=== PATIENT | female | born 1980 | race Caucasian/White ===

== ENCOUNTER 2018-08-04 09:37 | Emergency (ER) | payer MEDICAID ==
--- NOTE | 2018-08-04 11:03 | EDM.PDOC ---
ED HPI GENERAL MEDICAL PROBLEM - General Chief Complaint: Syncope Stated Complaint: DIZZY,FALLING,LOW BLOOD PRESSURE ISSUES Time Seen by Provider: 08/04/18 10:17 Source of Information: Reports: Patient, RN Notes Reviewed - History of Present Illness INITIAL COMMENTS - FREE TEXT/NARRATIVE: 38-year-old female comes in after having 2 episodes of syncope this morning. She states that she's been having difficulty with dizziness, lightheadedness, hypotension off and on for about the past 2 months. She had 2 episodes this morning when standing of feeling weak, lightheaded, dizzy and "passing out". At this time she does feel better. She denies chest abdominal discomfort or any difficulty breathing. She is not on any new medications. She does take a muscle relaxant and uses ketamine cream for back discomfort. She states she's been on those meds for about a year. She also does take Prozac. She states the dizziness and lightheadedness is worse when having her menstrual cycle. States she did start with a small amount of spotting this morning and then it "stopped ". No recent vomiting, diarrhea fever chills or voiding symptomatology. Head Pain Score (Numeric/FACES): 9 - Related Data Allergies Allergy/AdvReac Type Severity Reaction Status Date / Time amoxicillin [Amoxicillin] Allergy Hives Verified 03/19/18 20:24 CDT Penicillins Allergy Hives Verified 03/19/18 20:24 CDT Home Meds: Home Meds Acetaminophen/HYDROcodone [[place] 325-5 MG] 1 - 2 tab PO Q6H PRN #15 tablet 06/21 [Rx] ClonazePAM [KlonoPIN] 0.5 mg PO DAILY 06/21/16 [History] Diazepam [Valium] 5 mg PO BID PRN #10 tablet 06/21/16 [Rx] hydrOXYzine HCl [Atarax] 50 mg PO BEDTIME 06/21/16 [History] tiZANidine [Zanaflex] 4 mg PO TID 06/21/16 [History] Topiramate [Topamax] 50 mg PO DAILY 12/28/17 [History] clonazePAM [Klonopin] 1 mg PO DAILY 12/28/17 [History] Escitalopram [Lexapro] 1 mg PO DAILY 01/01/18 [History] Past Medical History HEENT History: Reports: None Cardiovascular History: Reports: None, Other (See Below) Other Cardiovascular History: heart murmur as a baby Respiratory History: Reports: Asthma Gastrointestinal History: Reports: None Genitourinary History: Reports: None LOCUM TENENS PSYCHIATRIST History: Reports: Other (See Below) Other LOC[employer] TEN[employer] PSYCHIATRIST History: ovarian cysts, laprascopy Musculoskeletal History: Reports: None Neurological History: Reports: Migraines Psychiatric History: Reports: Anxiety, Depression Endocrine/Metabolic History: Reports: None Hematologic History: Reports: None Immunologic History: Reports: None Oncologic (Cancer) History: Reports: None Dermatologic History: Reports: None - Infectious Disease History Infectious Disease History: Reports: None - Past Surgical History HEENT Surgical History: Reports: Adenoidectomy, Myringotomy w Tube(s) Cardiovascular Surgical History: Reports: None GI Surgical History: Reports: None Female Surgical History: Reports: None Endocrine Surgical History: Reports: None Neurological Surgical History: Reports: None Musculoskeletal Surgical History: Reports: Other (See Below), Shoulder Surgery Other Musculoskeletal Surgeries/Procedures:: herniated discs Oncologic Surgical History: Reports: None Dermatological Surgical History: Reports: None Social & Family History - Family History Family Medical History: Noncontributory - Tobacco Use Smoking Status *Q: Current Every Day Smoker Years of Tobacco use: 18 Packs/Tins Daily: 0.5 - Caffeine Use Caffeine Use: Reports: Soda - Recreational Drug Use Recreational Drug Use: Yes Drug Use in Last 12 Months: No ED ROS GENERAL - Review of Systems Review Of Systems: See Below Constitutional: Denies: Fever, Chills HEENT: Denies: Rhinitis, Throat Pain Respiratory: Denies: Shortness of Breath Cardiovascular: Reports: Lightheadedness (Intermittent, especially when standing ). Denies: Chest Pain, Palpitations GI/Abdominal: Reports: Abdominal Pain (Lower pelvic discomfort in the past, no pain at this time). Denies: Diarrhea, Nausea, Vomiting Musculoskeletal: Reports: Back Pain (Chronic) Skin: Denies: Rash Neurological: Reports: Dizziness (Intermittent), Headache (Intermittent). Denies: Trouble Speaking - Physical Exam Exam: See Below General Appearance: Alert, No Apparent Distress (at rest) Eye Exam: Bilateral Eye: PERRL Ears: Normal External Exam Throat/Mouth: Normal Inspection, Normal Oropharynx Head Exam: Atraumatic. No: Scalp Swelling, Scalp Tenderness, Facial Swelling Neck: Supple Respiratory/Chest: No Respiratory Distress, Lungs Clear, Normal Breath Sounds Cardiovascular: Bradycardia (44) GI/Abdominal: Soft, Non-Tender. No: Guarding Neuro Exam (Abbreviated): Alert, Oriented, No Motor/Sensory Deficits Back Exam: No: Paraspinal Tenderness, Vertebral Tenderness Extremities: Normal Inspection. No: Pedal Edema, Leg Pain Skin Exam: Warm, Dry, Normal Color EKG INTERPRETATION EKG Date: 08/04/18 Rhythm: Other (sinus jhony, rate 44) P-Wave: Present QRS: Normal ST-T: Normal Course - Vital Signs Last Recorded V/S: Last Vital Signs Temp 97.2 F 08/04/18 09:46 Pulse 44 L 08/04/18 09:46 Resp 16 08/04/18 09:46 BP 155/71 H 08/04/18 09:46 Pulse Ox 100 08/04/18 09:46 Orthostatic Blood Pressure [ 128/77 Standing] Orthostatic Blood Pressure [ 174/89 Sitting] - Orders/Labs/Meds Labs: Laboratory Tests 08/04/18 08/04/18 08/04/18 Range/Units 10:55 10:55 10:55 WBC 8.71 (3.98-10.04) K/mm3 RBC 4.39 (3.98-5.22) M/mm3 Hgb 13.7 (11.2-15.7) gm/L Hct 41.1 (34.1-44.9) % MCV 93.6 (79.4-94.8) fl MCH 31.2 (25.6-32.2) pg MCHC 33.3 (32.2-35.5) g/dl RDW Std Deviation 44.0 (36.4-46.3) fL Plt Count 329 (182-369) K/mm3 MPV 9.9 (9.4-12.3) fl Neut % (Auto) 62.7 (34.0-71.1) % Lymph % (Auto) 23.5 (19.3-51.7) % [place] % (Auto) 11.9 (4.7-12.5) % Eos % (Auto) 1.5 (0.7-5.8) Baso % (Auto) 0.3 (0.1-1.2) % Neut # (Auto) 5.45 (1.56-6.13) K/mm3 Lymph # (Auto) 2.05 (1.18-3.74) K/mm3 [place] # (Auto) 1.04 H (0.24-0.36) K/mm3 Eos # (Auto) 0.13 (0.04-0.36) K/mm3 Baso # (Auto) 0.03 (0.01-0.08) K/mm3 Sodium 138 (136-145) mEq/L Potassium 4.4 (3.5-5.1) mEq/L Chloride 103 (98-107) mEq/L Carbon Dioxide 25 (21-32) mEq/L Anion Gap 14.4 (5-15) BUN 16 (7-18) mg/dL Creatinine 0.9 (0.55-1.02) mg/dL Est Cr Clr Drug Dosing 82.42 mL/min Estimated GFR (MDRD) > 60 (>60) mL/min BUN/Creatinine Ratio 17.8 (14-18) Glucose 133 H (74-106) mg/dL Calcium 9.3 (8.5-10.1) mg/dL Total Bilirubin 0.2 (0.2-1.0) mg/dL AST 24 (15-37) U/L ALT 38 (14-59) U/L Alkaline Phosphatase 69 (46-116) U/L Total Protein 8.6 H (6.4-8.2) g/dl Albumin 3.8 (3.4-5.0) g/dl Globulin 4.8 gm/dL Albumin/Globulin Ratio 0.8 L (1-2) HCG, Qual Negative (NEGATIVE) Urine Color (Yellow) Urine Appearance (Clear) Urine pH (5.0-8.0) Ur Specific [place] (1.005-1.030) Urine Protein (Negative) Urine Glucose (UA) (Negative) Urine Ketones (Negative) Urine Occult Blood (Negative) Urine Nitrite (Negative) Urine Bilirubin (Negative) Urine Urobilinogen (0.2-1.0) Ur Leukocyte Esterase (Negative) 08/04/18 Range/Units 12:09 WBC (3.98-10.04) K/mm3 RBC (3.98-5.22) M/mm3 Hgb (11.2-15.7) gm/L Hct (34.1-44.9) % MCV (79.4-94.8) fl MCH (25.6-32.2) pg MCHC (32.2-35.5) g/dl RDW Std Deviation (36.4-46.3) fL Plt Count (182-369) K/mm3 MPV (9.4-12.3) fl Neut % (Auto) (34.0-71.1) % Lymph % (Auto) (19.3-51.7) % [place] % (Auto) (4.7-12.5) % Eos % (Auto) (0.7-5.8) Baso % (Auto) (0.1-1.2) % Neut # (Auto) (1.56-6.13) K/mm3 Lymph # (Auto) (1.18-3.74) K/mm3 [place] # (Auto) (0.24-0.36) K/mm3 Eos # (Auto) (0.04-0.36) K/mm3 Baso # (Auto) (0.01-0.08) K/mm3 Sodium (136-145) mEq/L Potassium (3.5-5.1) mEq/L Chloride (98-107) mEq/L Carbon Dioxide (21-32) mEq/L Anion Gap (5-15) BUN (7-18) mg/dL Creatinine (0.55-1.02) mg/dL Est Cr Clr Drug Dosing mL/min Estimated GFR (MDRD) (>60) mL/min BUN/Creatinine Ratio (14-18) Glucose (74-106) mg/dL Calcium (8.5-10.1) mg/dL Total Bilirubin (0.2-1.0) mg/dL AST (15-37) U/L ALT (14-59) U/L Alkaline Phosphatase (46-116) U/L Total Protein (6.4-8.2) g/dl Albumin (3.4-5.0) g/dl Globulin gm/dL Albumin/Globulin Ratio (1-2) HCG, Qual (NEGATIVE) Urine Color Yellow (Yellow) Urine Appearance Clear (Clear) Urine pH 6.5 (5.0-8.0) Ur Specific [place] 1.010 (1.005-1.030) Urine Protein Negative (Negative) Urine Glucose (UA) Negative (Negative) Urine Ketones Negative (Negative) Urine Occult Blood Trace-intact H (Negative) Urine Nitrite Negative (Negative) Urine Bilirubin Negative (Negative) Urine Urobilinogen 0.2 (0.2-1.0) Ur Leukocyte Esterase Negative (Negative) Meds: Medications Discontinued Medications Generic Name Dose Route Start Last Admin Trade Name Aster PRN Reason Stop Dose Admin Acetaminophen 975 mg 08/04/18 11:46 08/04/18 11:56 Tylenol PO 08/04/18 11:47 975 mg NOW ONE Administration Diphenhydramine HCl 25 mg 08/04/18 11:46 08/04/18 11:56 Benadryl PO 08/04/18 11:47 25 mg ONETIME ONE Administration Ketorolac Tromethamine 30 mg 08/04/18 11:45 08/04/18 12:06 Toradol IVPUSH 30 mg ONETIME GILLIAN Administration Metoclopramide HCl 5 mg 08/04/18 11:45 08/04/18 12:09 Reglan IVPUSH 08/04/18 11:46 5 mg ONETIME ONE Administration - Re-Assessments/Exams Free Text/Narrative Re-Assessment/Exam: 08/07/18 12:09 labs did come back relatively normal. However heart rate stayed slow, in the 40 's, increases to low 60's standing, BP maintained lying to standing with initial ortho's. However she noted that when she walked to the bathroom by the time she got back to her room she was feeling really lightheaded and dizzy. Her nurse than walked her around the ED, BP started out good but dropped to upper 70's systolic after just a minute or 2 of walking, heart rate up to around 60 but not as fast as it should have been with patient weak, dizzy, hypotensive, about to pass out. I did research the muscle relaxant she is taking pretty regularly, tizanidine and 2 of the main side effects listed are bradycardia and hypotension. I have discussed that finding with patient and her father. She urgently needs to stop taking that medication. 48 hour holter moniter also applied. Departure - Departure Time of Disposition: 13:53 Disposition: Home, Self-Care 01 Condition: Fair Clinical Impression: Syncope due to orthostatic hypotension, Bradycardia - Discharge Information Instructions: Hypotension, Syncope Referrals: PCP,Not In Area [Primary Care Provider] - Forms: ED Department Discharge Additional Instructions: 48 hour Holter monitor, the tizanidine muscle relaxant is affecting your bodies automatic control of heart rate and blood pressure and with the walking your blood pressure did drop much more than expected. Stop or taper down very rapidly to be off of that medication. Follow-up with your regular medical provider later this week if possible. Return to ED as needed.
[2018-08-04] MEDS ORDERED: Metoclopramide 10 MG/2 ML SDV IVPUSH ONE (11:45)
[2018-08-04] MEDS ORDERED: Ketorolac 30 MG/ML SDV IVPUSH SCH (11:45)
[2018-08-04] MEDS ORDERED: diphenhydrAMINE 25 MG Cap PO ONE (11:46)
[2018-08-04] MEDS ORDERED: Acetaminophen 325 MG Tab PO ONE (11:46)
== END 2018-08-04 14:23 | disposition home or self-care (01) ==
LOC: JD.ED 09:37 → EEVIPCON 09:37 → JD.ED 14:23
DX: I95.1 Orthostatic hypotension (principal); R00.1 Bradycardia, unspecified; J45.909 Unspecified asthma, uncomplicated; F41.9 Anxiety disorder, unspecified; F32.9 Major depressive disorder, single episode, unspecified; F17.210 Nicotine dependence, cigarettes, uncomplicated; Z88.1 Allergy status to other antibiotic agents; Z88.0 Allergy status to penicillin; Z79.899 Other long term (current) drug therapy
CPT/HCPCS: 36415; 80053; 81003; 84703; 85025; 93005; 93225; 93226; 96374; 96375; 99284; A9270; J1885; J2765

== ENCOUNTER 2018-08-10 16:21 | Emergency (ER) | payer MEDICAID ==
[2018-08-10] MEDS ORDERED: Acetaminophen/HYDROcodone 325-5 MG Tab PO ONE (17:11)
--- NOTE | 2018-08-10 17:13 | EDM.PDOC ---
ED HPI GENERAL MEDICAL PROBLEM - General Chief Complaint: Lower Extremity Injury/Pain Stated Complaint: L FOOT PAIN/NUMBNESS Time Seen by Provider: 08/10/18 17:00 Source of Information: Reports: Patient History Limitations: Reports: No Limitations - History of Present Illness INITIAL COMMENTS - FREE TEXT/NARRATIVE: Patient is a 38-year-old female who presents ED complaining of left ankle discomfort. States the discomfort came on abruptly in the middle of the night. Pain is described as a burning sensation worse with palpation and any movement of the ankle/foot. Pain is more on the dorsal aspect of the ankle where comes in contact with the foot. She also has some discomfort posteriorly, laterally, medially. 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 Patient's had in total had 7 knee surgeries and had surgery to remove the affected nerve. She has been utilizing Tylenol for pain with no relief. She denies any other pain medications at this time. She is on no chronic pain therapy. There is no increased swelling, redness, increased warmth, sensory changes, or bruising noted. She denies any recent fall or trauma that may have caused pain. Patient has a history of herniated disc x 2 and see's a pain specialists in [place]. She denies any pain radiating down the posterior aspect of her leg. She denies any weakness with standing. Incontinence to urine or stool. No foot drop noted. 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: Acetaminophen Left Foot Pain Score (Numeric/FACES): 8 - Related Data Allergies Allergy/AdvReac Type Severity Reaction Status Date / Time amoxicillin [Amoxicillin] Allergy Hives Verified 08/10/18 16:29 Penicillins Allergy Hives Verified 08/10/18 16:29 Home Meds: Home Meds FLUoxetine HCl [Prozac] 20 mg PO DAILY 08/10/18 [History] Past Medical History HEENT History: Reports: None Cardiovascular History: Reports: None, Other (See Below) Other Cardiovascular History: heart murmur as a baby Respiratory History: Reports: Asthma Gastrointestinal History: Reports: None Genitourinary History: Reports: None MANAGER LAW History: Reports: Other (See Below) Other MANAGER LAW History: ovarian cysts, laprascopy Musculoskeletal History: Reports: None Neurological History: Reports: Migraines Psychiatric History: Reports: Anxiety, Depression Endocrine/Metabolic History: Reports: None Hematologic History: Reports: None Immunologic History: Reports: None Oncologic (Cancer) History: Reports: None Dermatologic History: Reports: None - Infectious Disease History Infectious Disease History: Reports: None - Past Surgical History HEENT Surgical History: Reports: Adenoidectomy, Myringotomy w Tube(s) Cardiovascular Surgical History: Reports: None GI Surgical History: Reports: None Female Surgical History: Reports: None Endocrine Surgical History: Reports: None Neurological Surgical History: Reports: None Musculoskeletal Surgical History: Reports: Other (See Below), Shoulder Surgery Other Musculoskeletal Surgeries/Procedures:: herniated discs Oncologic Surgical History: Reports: None Dermatological Surgical History: Reports: None Social & Family History - Family History Family Medical History: Noncontributory - Tobacco Use Smoking Status *Q: Current Every Day Smoker Years of Tobacco use: 20 Packs/Tins Daily: 0.5 Used Tobacco, but Quit: No Second Hand Smoke Exposure: No - Caffeine Use Caffeine Use: Reports: Soda - Recreational Drug Use Recreational Drug Use: No Review of Systems - Review of Systems Review Of Systems: ROS reveals no pertinent complaints other than HPI. ED EXAM, GENERAL - Physical Exam Exam: See Below Exam Limited By: No Limitations General Appearance: Alert, WD/WN, Mild Distress Eye Exam: Bilateral Eye: PERRL (Pupils are dilated. ) Ears: Hearing Grossly Normal Nose: Normal Inspection Throat/Mouth: Normal Voice, No Airway Compromise Neck: Normal Inspection, Supple Respiratory/Chest: No Respiratory Distress, No Accessory Muscle Use Cardiovascular: Normal Peripheral Pulses, Regular Rate, Rhythm, No Murmur Peripheral Pulses: 2+: Radial (L), Posterior Tibial (L), Dorsalis Pedis (L) Extremities: Normal Inspection, Other (On examination of the left ankle/foot there is no swelling, bruising, bony abnormalities noted. With palpation the foot is cool to touch with pulses in place. Patient states she's not been wearing any socks today increasing pain. Pain is described as a burning sensation worse with palpation any type of movement. Pain with palpation of the dorsal of the ankle, lateral, medial, and along the Achilles as well. Again pain is described as a burning sensation.) Neurological: Alert, Oriented, CN II-XII Intact, Normal Cognition, No Motor/ Sensory Deficits, Other (No weakness noted with dorsiflexion/plantarflexion of the left/right leg in comparison. ) Psychiatric: Normal Affect, Anxious Skin Exam: Warm, Dry, Intact, Normal Color, No Rash Course - Vital Signs Last Recorded V/S: Last Vital Signs Temp 99.2 F 08/10/18 16:32 Pulse 112 H 08/10/18 16:32 Resp 20 08/10/18 16:32 BP 143/100 H 08/10/18 16:32 Pulse Ox 98 08/10/18 16:32 - Orders/Labs/Meds Orders: Active Orders 24 hr Category Date Time Status Ankle Min 3V Lt [CR] Stat Exams 08/10/18 17:00 Taken Labs: Laboratory Tests 08/10/18 08/10/18 08/10/18 Range/Units 17:30 17:30 17:42 WBC 9.75 (3.98-10.04) K/mm3 RBC 4.49 (3.98-5.22) M/mm3 Hgb 14.2 (11.2-15.7) gm/L Hct 41.7 (34.1-44.9) % MCV 92.9 (79.4-94.8) fl MCH 31.6 (25.6-32.2) pg MCHC 34.1 (32.2-35.5) g/dl RDW Std Deviation 44.0 (36.4-46.3) fL Plt Count 383 H (182-369) K/mm3 MPV 9.6 (9.4-12.3) fl Neutrophils % (Manual) 55 (40-60) % Band Neutrophils % 1 (0-10) % Lymphocytes % (Manual) 36 (20-40) % Atypical Lymphs % 0 % Monocytes % (Manual) 7 (2-10) % Eosinophils % (Manual) 1 (0.7-5.8) % Basophils % (Manual) 0 L (0.1-1.2) Platelet Estimate Adequate RBC Morph Comment Normal Sodium 137 (136-145) mEq/L Potassium 4.0 (3.5-5.1) mEq/L Chloride 101 (98-107) mEq/L Carbon Dioxide 21 (21-32) mEq/L Anion Gap 19.0 H (5-15) BUN 10 (7-18) mg/dL Creatinine 0.9 (0.55-1.02) mg/dL Est Cr Clr Drug Dosing 82.42 mL/min Estimated GFR (MDRD) > 60 (>60) mL/min BUN/Creatinine Ratio 11.1 L (14-18) Glucose 100 (74-106) mg/dL Uric Acid 4.4 (2.6-6.0) mg/dL Calcium 9.5 (8.5-10.1) mg/dL Total Bilirubin 0.4 (0.2-1.0) mg/dL AST 21 (15-37) U/L ALT 27 (14-59) U/L Alkaline Phosphatase 69 (46-116) U/L C-Reactive Protein 0.6 (<1.0) mg/dL Total Protein 8.9 H (6.4-8.2) g/dl Albumin 4.5 (3.4-5.0) g/dl Globulin 4.4 gm/dL Albumin/Globulin Ratio 1.0 (1-2) Urine Opiates Screen Negative (BVMUGL=026) Ur Buprenorphine Scrn Negative (CUTOFF=10) Ur Oxycodone Screen Negative (CSO2KO=086) Urine Methadone Screen Negative (IZDMNS=754) Ur Propoxyphene Screen Negative (OIKGTD=781) Ur Barbiturates Screen Negative (EQRSJS=796) Ur Tricyclics Screen Negative (BKAJYU=735) Ur Phencyclidine Scrn Negative (CUTOFF=25) Ur Amphetamine Screen Negative (ZVQKFE=663) U Methamphetamines Scrn Presumptive positive H (DFGPGK=849) U Benzodiazepines Scrn Negative (PWQFIH=512) U Cocaine Metab Screen Negative (XXTXMT=817) U Marijuana (THC) Screen Negative (CUTOFF=50) Meds: Medications Discontinued Medications Generic Name Dose Route Start Last Admin Trade Name Freq PRN Reason Stop Dose Admin Hydrocodone Bitart/Acetaminophen 2 tab 08/10/18 17:11 08/10/18 17:43 [place] 325-5 Mg PO 08/10/18 17:12 2 tab ONETIME ONE Administration - Re-Assessments/Exams Free Text/Narrative Re-Assessment/Exam: Differential diagnosis: Neuropathic pain, gout, or traumatic injury. Will obtain basic labs including: CBC, chem 14, CRP, and uric acid. X-ray of the left ankle be obtained. I have also ordered a urine drug screen. Reviewed the [facility] pharmacy controlled substances list. Patient received clonazepam 07/2018, ketamine powder 07/24/18, and gabapentin powder 07/24/2018. Patient did not provide this information when questioning which medications she is currently on. Patient clarified she utilizes the ketamine and gabapentin medications lotion for for her back pain. X-ray of the left ankle did not reveal any acute bony abnormalities. Reviewed with Dr. Lopez. Suspect this is neuropathic in etiology. I have asked for nursing staff to provide crutches since the patient has discomfort with ambulation. Labs reviewed: CBC essentially normal. Chemistry panel was essentially normal as well. Uric acid 4.4. CRP is normal. Urine drug tox came back positive for methamphetamines. Patient denies using methamphetamines. She has a drug patch in place. Upon getting patient ready for discharge. Father has asked to speak with me in relation to her medical care. Unfortunately I am unable to at this point since patient has not given me permission. Return precautions were discussed with the patient and father. Patient will follow up with PCP this coming week for further evaluation. Patient had no questions or concerns. Patient refuses crutches since she has a set at home. Departure - Departure Time of Disposition: 19:10 Disposition: DC/[place] W/I Hosp To Swing 61 Condition: Good Clinical Impression: Positive urine drug screen Ankle pain, left Qualifiers: Chronicity: acute Qualified Code(s): M25.572 - Pain in left ankle and joints of left foot - Discharge Information Instructions: Ankle Pain Referrals: PCP,Not In Area [Primary Care Provider] - Forms: ED Department Discharge Additional Instructions: Suspect cause of pain to the left ankle is neuropathic in origin. Apply capsaicin cream to the affected area 4 times a day. Utilize crutches when ambulating to reduce any discomfort. See your primary care provider this coming week for further evaluation. May use Tylenol and ibuprofen in alternating fashion as well. Urine was positive for methamphetamines unclear how this occurred. Seek help if using meth at this time. Please return to ED if you develop any new or worsening symptoms. - My Orders Last 24 Hours: My Active Orders 08/10/18 17:00 Ankle Min 3V Lt [CR] Stat - Assessment/Plan Last 24 Hours: My Active Orders 08/10/18 17:00 Ankle Min 3V Lt [CR] Stat
--- NOTE | 2018-08-11 08:24 | CR ---
Left ankle: Four views of the left ankle were obtained. Comparison: No previous study. Ankle mortise is symmetric. No fracture, dislocation or other bony abnormality is seen. Impression: 1. No abnormality is seen on left ankle exam. Diagnostic code #1
== END 2018-08-10 19:33 | disposition swing bed (61) ==
LOC: JD.ED 16:21
DX: M25.572 Pain in left ankle and joints of left foot (principal); F17.210 Nicotine dependence, cigarettes, uncomplicated; Z88.0 Allergy status to penicillin; Z88.1 Allergy status to other antibiotic agents
CPT/HCPCS: 36415; 73610; 80053; 80306; 84550; 85007; 85027; 86140; 99284; A9270

== ENCOUNTER 2018-09-11 10:47 | Emergency (ER) | payer MEDICAID ==
--- NOTE | 2018-09-11 11:21 | EDM.PDOC ---
ED HPI GENERAL MEDICAL PROBLEM - General Chief Complaint: General Stated Complaint: NECK PAIN Time Seen by Provider: 09/11/18 11:20 Source of Information: Reports: Patient - History of Present Illness INITIAL COMMENTS - FREE TEXT/NARRATIVE: Patient is here for evaluation of pain and abnormal sensation radiating through her body. She states it started last night. She reports this pain to her ankles and hips, she also has a sensation of electrical impulses radiating from her neck down to her body. She states that she is shaking and feels very unnerved. Denies any chest pain or shortness of breath. Denies any GI symptoms. No recent coughs or colds or illnesses. Patient has a history of drug use, reports that she last used approximately 6 months ago. She denies any illicit drug use recently. She states she had caffeine on Sunday in the form of a Coca-[employer]a. Patient does not have a primary provider, does see psychiatry/Dr. badillo. Medications includes Prozac, tizanidine, clonazepam, ketamine cream and a medication that is being used for a yeast infection in her mouth. Generalized Pain Score (Numeric/FACES): 9 - Related Data Allergies Allergy/AdvReac Type Severity Reaction Status Date / Time amoxicillin [Amoxicillin] Allergy Hives Verified 08/10/18 16:29 Penicillins Allergy Hives Verified 08/10/18 16:29 Home Meds: Home Meds FLUoxetine HCl [Prozac] 20 mg PO DAILY 08/10/18 [History] Clindamycin HCl [Cleocin] 300 mg PO Q8H 7 Days #42 cap 09/11/18 [Rx] Past Medical History HEENT History: Reports: None Cardiovascular History: Reports: None, Other (See Below) Other Cardiovascular History: heart murmur as a baby Respiratory History: Reports: Asthma Gastrointestinal History: Reports: None Genitourinary History: Reports: None STAFFING OPERATIONS MANAGER History: Reports: Other (See Below) Other STAFFING OPERATIONS MANAGER History: ovarian cysts, laprascopy Musculoskeletal History: Reports: None Neurological History: Reports: Migraines Psychiatric History: Reports: Anxiety, Depression Endocrine/Metabolic History: Reports: None Hematologic History: Reports: None Immunologic History: Reports: None Oncologic (Cancer) History: Reports: None Dermatologic History: Reports: None - Infectious Disease History Infectious Disease History: Reports: None - Past Surgical History HEENT Surgical History: Reports: Adenoidectomy, Myringotomy w Tube(s) Cardiovascular Surgical History: Reports: None GI Surgical History: Reports: None Female Surgical History: Reports: None Endocrine Surgical History: Reports: None Neurological Surgical History: Reports: None Musculoskeletal Surgical History: Reports: Other (See Below), Shoulder Surgery Other Musculoskeletal Surgeries/Procedures:: herniated discs Oncologic Surgical History: Reports: None Dermatological Surgical History: Reports: None Social & Family History - Family History Family Medical History: Noncontributory - Caffeine Use Caffeine Use: Reports: Soda ED ROS GENERAL - Review of Systems Review Of Systems: See Below Constitutional: Reports: Chills, Fatigue, Decreased Appetite. Denies: Fever HEENT: Denies: Ear Pain, Rhinitis, Sinus Problem, Vertigo, Vision Change Respiratory: Denies: Shortness of Breath, Wheezing, Pleuritic Chest Pain, Cough Cardiovascular: Denies: Chest Pain, Blood Pressure Problem, Dyspnea on Exertion , Edema, Lightheadedness, Palpitations Endocrine: Reports: Fatigue GI/Abdominal: Denies: Abdominal Pain, Constipation, Diarrhea, Nausea, Vomiting Musculoskeletal: Reports: Joint Pain (Bilateral ankles and hips), Muscle Pain, Muscle Stiffness, Other ("electrical shock feeling") Skin: Reports: No Symptoms Neurological: Reports: Numbness, Paresthesia, Tingling, Tremors. Denies: Confusion, Dizziness, Headache, Seizure, Syncope, Change in Speech, Gait Disturbance Psychiatric: Reports: Anxiety, Other (History of drug use, last meth use 6 months ago) Hematologic/Lymphatic: Reports: No Symptoms Immunologic: Reports: No Symptoms ED EXAM, GENERAL - Physical Exam Exam: See Below Exam Limited By: No Limitations General Appearance: Alert, Anxious, Mild Distress Eye Exam: Bilateral Eye: Abnormal Pupil (Dilated), EOMI Throat/Mouth: Normal Inspection, Normal Oropharynx, Other (Poor dentition, multiple dental caries. No gingival swelling or erythema.) Head: Atraumatic, Normocephalic Neck: Normal Inspection, Supple, Non-Tender, Full Range of Motion. No: Lymphadenopathy (L), Lymphadenopathy (R) Respiratory/Chest: No Respiratory Distress, Lungs Clear, Normal Breath Sounds Cardiovascular: Normal Peripheral Pulses, No Edema, No JVD, No Murmur, No Rub, Tachycardia Peripheral Pulses: 2+: Posterior Tibial (L), Posterior Tibial (R) GI/Abdominal: Normal Bowel Sounds, Soft, Non-Tender Extremities: Normal Inspection, Normal Range of Motion, Non-Tender, No Pedal Edema, Normal Capillary Refill Neurological: Alert, Oriented, No Motor/Sensory Deficits Skin Exam: Warm, Dry, Intact, Normal Color, No Rash Lymphatic: No Adenopathy EKG INTERPRETATION EKG Date: 09/11/18 Time: 11:45 Rhythm: NSR Rate (Beats/Min): 132 Course - Vital Signs Last Recorded V/S: Last Vital Signs Temp 99.1 F 09/11/18 14:37 Pulse 123 H 09/11/18 14:37 Resp 18 09/11/18 14:37 BP 137/100 H 09/11/18 14:37 Pulse Ox 98 09/11/18 14:37 - Orders/Labs/Meds Orders: Active Orders 24 hr Category Date Time Status EKG 12 Lead [EKG Documentation Completion] [RC] STAT Care 09/11/18 11:29 Active Labs: Laboratory Tests 09/11/18 09/11/18 09/11/18 Range/Units 11:13 11:13 11:13 WBC 12.11 H (3.98-10.04) K/mm3 RBC 4.83 (3.98-5.22) M/mm3 Hgb 15.0 (11.2-15.7) gm/L Hct 46.4 H (34.1-44.9) % MCV 96.1 H (79.4-94.8) fl MCH 31.1 (25.6-32.2) pg MCHC 32.3 (32.2-35.5) g/dl RDW Std Deviation 50.2 H (36.4-46.3) fL Plt Count 431 H (182-369) K/mm3 MPV 9.8 (9.4-12.3) fl Neutrophils % (Manual) 78 H (40-60) % Band Neutrophils % 0 (0-10) % Lymphocytes % (Manual) 18 L (20-40) % Atypical Lymphs % 0 % Monocytes % (Manual) 3 (2-10) % Eosinophils % (Manual) 0 L (0.7-5.8) % Basophils % (Manual) 1 (0.1-1.2) Platelet Estimate Increased Anisocytosis 1+ slight RBC Morph Comment Abnormal Sodium 134 L (136-145) mEq/L Potassium 4.4 (3.5-5.1) mEq/L Chloride 97 L (98-107) mEq/L Carbon Dioxide 22 (21-32) mEq/L Anion Gap 19.4 H (5-15) BUN 11 (7-18) mg/dL Creatinine 1.3 H (0.55-1.02) mg/dL Est Cr Clr Drug Dosing 57.06 mL/min Estimated GFR (MDRD) 46 (>60) mL/min BUN/Creatinine Ratio 8.5 L (14-18) Glucose 144 H (74-106) mg/dL Calcium 9.6 (8.5-10.1) mg/dL Magnesium 2.2 (1.8-2.4) mg/dl Total Bilirubin 0.2 (0.2-1.0) mg/dL AST 56 H (15-37) U/L ALT 143 H (14-59) U/L Alkaline Phosphatase 92 (46-116) U/L Lactate Dehydrogenase (81-234) U/L Troponin I < 0.017 (0.00-0.056) ng/mL C-Reactive Protein 0.2 (<1.0) mg/dL Total Protein 9.4 H (6.4-8.2) g/dl Albumin 4.5 (3.4-5.0) g/dl Globulin 4.9 gm/dL Albumin/Globulin Ratio 0.9 L (1-2) TSH 3rd Generation 1.433 (0.358-3.74) uIU/mL Urine Color (Yellow) Urine Appearance (Clear) Urine pH (5.0-8.0) Ur Specific [place] (1.005-1.030) Urine Protein (Negative) Urine Glucose (UA) (Negative) Urine Ketones (Negative) Urine Occult Blood (Negative) Urine Nitrite (Negative) Urine Bilirubin (Negative) Urine Urobilinogen (0.2-1.0) Ur Leukocyte Esterase (Negative) Urine RBC (0-5) /hpf Urine WBC (0-5) /hpf Ur Epithelial Cells (0-5) /hpf Urine Bacteria (FEW) /hpf Urine Mucus (FEW) /hpf Urine HCG, Qual (NEGATIVE) Urine Opiates Screen (NZWFAM=027) Ur Buprenorphine Scrn (CUTOFF=10) Ur Oxycodone Screen (FGY1NG=414) Urine Methadone Screen (VJVQUS=721) Ur Propoxyphene Screen (HJDNEC=061) Ur Barbiturates Screen (UGUVKT=253) Ur Tricyclics Screen (DTMMHN=173) Ur Phencyclidine Scrn (CUTOFF=25) Ur Amphetamine Screen (ZUAIWS=123) U Methamphetamines Scrn (TZUPUC=937) U Benzodiazepines Scrn (NETPPV=047) U Cocaine Metab Screen (XASTBS=565) U Marijuana (THC) Screen (CUTOFF=50) Ethyl Alcohol 0.00 (0.00) gm% 09/11/18 09/11/18 09/11/18 Range/Units 11:13 11:50 11:50 WBC (3.98-10.04) K/mm3 RBC (3.98-5.22) M/mm3 Hgb (11.2-15.7) gm/L Hct (34.1-44.9) % MCV (79.4-94.8) fl MCH (25.6-32.2) pg MCHC (32.2-35.5) g/dl RDW Std Deviation (36.4-46.3) fL Plt Count (182-369) K/mm3 MPV (9.4-12.3) fl Neutrophils % (Manual) (40-60) % Band Neutrophils % (0-10) % Lymphocytes % (Manual) (20-40) % Atypical Lymphs % % Monocytes % (Manual) (2-10) % Eosinophils % (Manual) (0.7-5.8) % Basophils % (Manual) (0.1-1.2) Platelet Estimate Anisocytosis RBC Morph Comment Sodium (136-145) mEq/L Potassium (3.5-5.1) mEq/L Chloride (98-107) mEq/L Carbon Dioxide (21-32) mEq/L Anion Gap (5-15) BUN (7-18) mg/dL Creatinine (0.55-1.02) mg/dL Est Cr Clr Drug Dosing mL/min Estimated GFR (MDRD) (>60) mL/min BUN/Creatinine Ratio (14-18) Glucose (74-106) mg/dL Calcium (8.5-10.1) mg/dL Magnesium (1.8-2.4) mg/dl Total Bilirubin (0.2-1.0) mg/dL AST (15-37) U/L ALT (14-59) U/L Alkaline Phosphatase (46-116) U/L Lactate Dehydrogenase 229 (81-234) U/L Troponin I (0.00-0.056) ng/mL C-Reactive Protein (<1.0) mg/dL Total Protein (6.4-8.2) g/dl Albumin (3.4-5.0) g/dl Globulin gm/dL Albumin/Globulin Ratio (1-2) TSH 3rd Generation (0.358-3.74) uIU/mL Urine Color Yellow (Yellow) Urine Appearance Clear (Clear) Urine pH 7.0 (5.0-8.0) Ur Specific [place] 1.010 (1.005-1.030) Urine Protein Trace H (Negative) Urine Glucose (UA) Negative (Negative) Urine Ketones Negative (Negative) Urine Occult Blood Trace-intact H (Negative) Urine Nitrite Negative (Negative) Urine Bilirubin Negative (Negative) Urine Urobilinogen 0.2 (0.2-1.0) Ur Leukocyte Esterase Negative (Negative) Urine RBC 0-5 (0-5) /hpf Urine WBC 0-5 (0-5) /hpf Ur Epithelial Cells 0-5 (0-5) /hpf Urine Bacteria Not seen (FEW) /hpf Urine Mucus Not seen (FEW) /hpf Urine HCG, Qual Negative (NEGATIVE) Urine Opiates Screen (AZEOTC=481) Ur Buprenorphine Scrn (CUTOFF=10) Ur Oxycodone Screen (LFW7UX=521) Urine Methadone Screen (GKMANH=696) Ur Propoxyphene Screen (XBTBTT=568) Ur Barbiturates Screen (UROBGC=767) Ur Tricyclics Screen (XXWDFL=750) Ur Phencyclidine Scrn (CUTOFF=25) Ur Amphetamine Screen (BPTLTD=847) U Methamphetamines Scrn (LZFRWZ=013) U Benzodiazepines Scrn (GPMTCC=298) U Cocaine Metab Screen (XYOBIY=162) U Marijuana (THC) Screen (CUTOFF=50) Ethyl Alcohol (0.00) gm% 09/11/18 Range/Units 11:50 WBC (3.98-10.04) K/mm3 RBC (3.98-5.22) M/mm3 Hgb (11.2-15.7) gm/L Hct (34.1-44.9) % MCV (79.4-94.8) fl MCH (25.6-32.2) pg MCHC (32.2-35.5) g/dl RDW Std Deviation (36.4-46.3) fL Plt Count (182-369) K/mm3 MPV (9.4-12.3) fl Neutrophils % (Manual) (40-60) % Band Neutrophils % (0-10) % Lymphocytes % (Manual) (20-40) % Atypical Lymphs % % Monocytes % (Manual) (2-10) % Eosinophils % (Manual) (0.7-5.8) % Basophils % (Manual) (0.1-1.2) Platelet Estimate Anisocytosis RBC Morph Comment Sodium (136-145) mEq/L Potassium (3.5-5.1) mEq/L Chloride (98-107) mEq/L Carbon Dioxide (21-32) mEq/L Anion Gap (5-15) BUN (7-18) mg/dL Creatinine (0.55-1.02) mg/dL Est Cr Clr Drug Dosing mL/min Estimated GFR (MDRD) (>60) mL/min BUN/Creatinine Ratio (14-18) Glucose (74-106) mg/dL Calcium (8.5-10.1) mg/dL Magnesium (1.8-2.4) mg/dl Total Bilirubin (0.2-1.0) mg/dL AST (15-37) U/L ALT (14-59) U/L Alkaline Phosphatase (46-116) U/L Lactate Dehydrogenase (81-234) U/L Troponin I (0.00-0.056) ng/mL C-Reactive Protein (<1.0) mg/dL Total Protein (6.4-8.2) g/dl Albumin (3.4-5.0) g/dl Globulin gm/dL Albumin/Globulin Ratio (1-2) TSH 3rd Generation (0.358-3.74) uIU/mL Urine Color (Yellow) Urine Appearance (Clear) Urine pH (5.0-8.0) Ur Specific [place] (1.005-1.030) Urine Protein (Negative) Urine Glucose (UA) (Negative) Urine Ketones (Negative) Urine Occult Blood (Negative) Urine Nitrite (Negative) Urine Bilirubin (Negative) Urine Urobilinogen (0.2-1.0) Ur Leukocyte Esterase (Negative) Urine RBC (0-5) /hpf Urine WBC (0-5) /hpf Ur Epithelial Cells (0-5) /hpf Urine Bacteria (FEW) /hpf Urine Mucus (FEW) /hpf Urine HCG, Qual (NEGATIVE) Urine Opiates Screen Negative (BCSPMN=058) Ur Buprenorphine Scrn Negative (CUTOFF=10) Ur Oxycodone Screen Negative (LBK4QH=781) Urine Methadone Screen Negative (PCCCCW=609) Ur Propoxyphene Screen Negative (EIOGHH=044) Ur Barbiturates Screen Negative (KIJJAP=095) Ur Tricyclics Screen Presumptive positive H (IFGFOD=636) Ur Phencyclidine Scrn Negative (CUTOFF=25) Ur Amphetamine Screen Negative (HZELWF=785) U Methamphetamines Scrn Negative (MDZZAK=524) U Benzodiazepines Scrn Negative (APJEMO=347) U Cocaine Metab Screen Negative (FAUNVE=855) U Marijuana (THC) Screen Negative (CUTOFF=50) Ethyl Alcohol (0.00) gm% Meds: Medications Discontinued Medications Generic Name Dose Route Start Last Admin Trade Name Freq PRN Reason Stop Dose Admin Sodium Chloride 1,000 mls @ 999 mls/hr 09/11/18 11:31 09/11/18 11:56 Normal Saline IV 09/11/18 12:31 999 mls/hr ONETIME ONE Administration Lorazepam 1 mg 09/11/18 11:31 09/11/18 11:53 Ativan IVPUSH 09/11/18 11:32 1 mg ONETIME ONE Administration - Re-Assessments/Exams Free Text/Narrative Re-Assessment/Exam: Upon reexamination, patient is resting a bit more comfortable but still having some shaking. Dad is now sitting with her. 09/11/18 12:28 WBC elevated at 12,110. Platelets elevated at 431,000. Creatinine 1.3, glucose 144, anion gap 19.4. AST is elevated at 56 and ALT 143. These were normal at last visit a month ago. Troponin is negative. Urinalysis negative. TSH 1.433. Urine drug screen is positive for TCA, EtOH negative. Chest x-ray demonstrates no acute pathology. Lungs are clear. Patient is now resting more comfortably. She notes that she does not feel normal but is feeling much better. Tolerating fluids and will see if she can eat some crackers. She does have very poor dentition, infection is possible but not obvious on exam. She has an allergy to penicillins, will treat with clindamycin. 09/11/18 13:46 Patient is now tolerating fluids well, eating crackers. Will treat especially dental infection with clindamycin. She will follow-up with her PCP to further discuss her pain. Apparently she has a history of these neuropathic pains, there was suspicion for MS at one point and she is scheduled to see a neurologist as well. I did explain to the patient that it will be safer and easier for her to follow- up and have one primary provider and then see the neurologist as well. Patient will establish with one provider and follow up there, return to the emergency room for any new or worsening symptoms. 09/11/18 18:12 Departure - Departure Time of Disposition: 14:04 Disposition: Home, Self-Care 01 Condition: Good Clinical Impression: Dental infection, Paresthesias, Anxiety - Discharge Information Prescriptions: Clindamycin HCl [Cleocin] 300 mg PO Q8H 7 Days #42 cap Instructions: Dental Abscess, [id number], Paresthesia, [id number] Referrals: PCP,Not In Area [Primary Care Provider] - Forms: ED Department Discharge Additional Instructions: You were evaluated in the emergency department today for several symptoms. Your heart workup and lungs look good. Your blood work does show sign of infection, this is likely related to your teeth. You will be treated with an antibiotic, I recommend that you take a probiotic with this to help percent prevent upset stomach and diarrhea. You have numerous health care providers, I recommend a choosing just one and follow up with them in the next 48 hours. Certainly return to the emergency room for any new or worsening symptoms. - My Orders Last 24 Hours: My Active Orders 09/11/18 11:29 EKG 12 Lead [EKG Documentation Completion] [RC] STAT - Assessment/Plan Last 24 Hours: My Active Orders 09/11/18 11:29 EKG 12 Lead [EKG Documentation Completion] [RC] STAT
[2018-09-11] MEDS ORDERED: LORazepam 2 MG/ML SDV IVPUSH ONE (11:31)
[2018-09-11] MEDS ORDERED: Sodium Chloride 0.9% 1,000 ML IV ONE (11:31)
--- NOTE | 2018-09-11 14:45 | CR ---
Chest: Two views of the chest were obtained. Comparison: No prior chest x-ray. Heart size and mediastinum are normal. Lungs are clear. Bony structures appear within normal limits for the patient's age. Impression: 1. Nothing acute is seen on two-view chest x-ray. Diagnostic code #1
== END 2018-09-11 14:37 | disposition home or self-care (01) ==
LOC: JD.ED 10:47
DX: K04.7 Periapical abscess without sinus (principal); R20.2 Paresthesia of skin; F41.9 Anxiety disorder, unspecified; F32.9 Major depressive disorder, single episode, unspecified; Z88.1 Allergy status to other antibiotic agents; Z88.0 Allergy status to penicillin; Z79.899 Other long term (current) drug therapy
CPT/HCPCS: 36415; 71046; 80053; 80306; 81001; 81025; 83615; 83735; 84443; 84484; 85007; 85027; 86140; 93005; 96361; 96374; 99284; G0480; J2060; J7040; 93010

== ENCOUNTER 2018-09-30 09:45 | Emergency (ER) | payer MEDICAID ==
[2018-09-30] MEDS ORDERED: Sodium Chloride 0.9% 10 ML Syringe FLUSH PRN (11:25)
[2018-09-30] MEDS ORDERED: Ondansetron 4 MG/2 ML SDV IVPUSH ONE (11:25)
[2018-09-30] MEDS ORDERED: Sodium Chloride 0.9% 1,000 ML IV ONE ×2 (11:25)
--- NOTE | 2018-09-30 11:35 | EDM.PDOC ---
ED HPI GENERAL MEDICAL PROBLEM - General Chief Complaint: Cardiovascular Problem Stated Complaint: DIZZY SPELL/BLOOD PRESSURE LOW Time Seen by Provider: 09/30/18 11:00 Source of Information: Reports: Patient, Family History Limitations: Reports: Altered Mental Status - History of Present Illness INITIAL COMMENTS - FREE TEXT/NARRATIVE: Patient is a 38-year-old female presents ED complaining of multiple episodes of passing out with standing. States this has been going on for the past few days. States over the past few days she's actually falling 3 or 4 different times. She hit her head 2 days ago causing a small abrasion to her forehead. States the dizziness occurs with standing. At times she has to crawl because she cannot tolerate standing. She is on multiple medications that can cause drowsiness including: Ketamine cream, clonazepam, tizanidine, and Prozac. Approximately 2 months ago she was started on a ketamine cream for continued neck and back pain. Father who is present states he is concerned about patient' s mental status. He is a EMT and took her blood pressure this morning and found it to be low at 100/72 sitting. With standing the patient became so dizzy and had the sensation she was going to pass out thus was able take get a BP. She at times has felt short of breath. She is mildly nauseated. She feels her mouth is quite dry and has some slurred speech associated with it. There has been no focal neurological deficits noted. Father states patient is quite sedated and will fall asleep quite quickly. Patient currently denies any vision changes, n/ t to extremities, chest pain, abdominal pain, emesis, diarrhea, bloody stools, dark stools, dysuria, pain to her extremities, and or usage of alcohol/ recreational drugs/or opiates. - Related Data Allergies Allergy/AdvReac Type Severity Reaction Status Date / Time amoxicillin [Amoxicillin] Allergy Hives Verified 09/30/18 10:42 Penicillins Allergy Hives Verified 09/30/18 10:42 Home Meds: Home Meds FLUoxetine HCl [Prozac] 20 mg PO DAILY 08/10/18 [History] Ketamine Cream. 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[employer] CLASS History: ovarian cysts, laprascopy Musculoskeletal History: Reports: None Neurological History: Reports: Migraines Psychiatric History: Reports: Anxiety, Depression Endocrine/Metabolic History: Reports: None Hematologic History: Reports: None Immunologic History: Reports: None Oncologic (Cancer) History: Reports: None Dermatologic History: Reports: None - Infectious Disease History Infectious Disease History: Reports: None - Past Surgical History HEENT Surgical History: Reports: Adenoidectomy, Myringotomy w Tube(s) Cardiovascular Surgical History: Reports: None GI Surgical History: Reports: None Female Surgical History: Reports: None Endocrine Surgical History: Reports: None Neurological Surgical History: Reports: None Musculoskeletal Surgical History: Reports: Other (See Below), Shoulder Surgery Other Musculoskeletal Surgeries/Procedures:: herniated discs Oncologic Surgical History: Reports: None Dermatological Surgical History: Reports: None Social & Family History - Family History Family Medical History: Noncontributory - Tobacco Use Smoking Status *Q: Unknown Ever Smoked - Caffeine Use Caffeine Use: Reports: Soda ED ROS GENERAL - Review of Systems Review Of Systems: ROS reveals no pertinent complaints other than HPI. ED EXAM, GENERAL - Physical Exam Exam: See Below Exam Limited By: Altered Mental Status General Appearance: Alert, No Apparent Distress, Lethargic Eye Exam: Bilateral Eye: EOMI, Normal Inspection, Nystagmus (None noted), PERRL (Dilated bilaterally), Vision Changes (None stated) Ears: Hearing Grossly Normal Nose: Normal Inspection Throat/Mouth: Other (Slurred speech with dry oral mucosa. No tongue deviation.) Head: Other (Small abrasion to the forehead). No: Facial Swelling, Facial Tenderness, Sinus Tenderness Neck: Normal Inspection, Supple, Non-Tender, Full Range of Motion. No: Lymphadenopathy (L), Lymphadenopathy (R) Respiratory/Chest: No Respiratory Distress, Lungs Clear, Normal Breath Sounds, No Accessory Muscle Use, Chest Non-Tender Cardiovascular: Normal Peripheral Pulses, No Murmur, Bradycardia Peripheral Pulses: 2+: Radial (L), Radial (R), Posterior Tibial (L), Posterior Tibial (R) GI/Abdominal: Normal Bowel Sounds, Soft, Non-Tender, No Organomegaly, No Distention Back Exam: Normal Inspection. No: CVA Tenderness (L), CVA Tenderness (R), Paraspinal Tenderness, Vertebral Tenderness Extremities: Normal Inspection, Normal Range of Motion, Non-Tender, No Pedal Edema Neurological: Alert, Oriented (Alert to person, place, and nose were father is. She does not recall the year and who the president is. ), CN II-XII Intact, Normal Cognition, No Motor/Sensory Deficits, Other (No facial droop, tongue deviation, no weakness discrepancies to the upper and lower extremities. Finger to nose and rapid alternating movements are intact.) Psychiatric: Normal Affect, Normal Mood Skin Exam: Warm, Dry, Intact, Normal Color, No Rash Course - Vital Signs Last Recorded V/S: Last Vital Signs Temp 98.5 F 09/30/18 10:45 Pulse 43 L 09/30/18 10:45 Resp 16 09/30/18 10:45 BP 170/109 H 09/30/18 10:45 Pulse Ox 99 09/30/18 10:45 Orthostatic Blood Pressure [ 106/78 Standing] Orthostatic Blood Pressure [ 141/83 Sitting] Orthostatic Blood Pressure [ 124/90 Supine] - Orders/Labs/Meds Orders: Active Orders 24 hr Category Date Time Status EKG Documentation Completion [RC] STAT Care 09/30/18 11:25 Active Peripheral IV Care [RC] . DIRECTED Care 09/30/18 11:26 Active Peripheral IV Insertion Adult [OM.PC] Routine Oth 09/30/18 11:25 Ordered Labs: Laboratory Tests 09/30/18 09/30/18 09/30/18 Range/Units 11:30 11:30 11:30 WBC 7.81 (3.98-10.04) K/mm3 RBC 4.50 (3.98-5.22) M/mm3 Hgb 14.2 (11.2-15.7) gm/L Hct 43.0 (34.1-44.9) % MCV 95.6 H (79.4-94.8) fl MCH 31.6 (25.6-32.2) pg MCHC 33.0 (32.2-35.5) g/dl RDW Std Deviation 44.5 (36.4-46.3) fL Plt Count 346 (182-369) K/mm3 MPV 9.7 (9.4-12.3) fl Neutrophils % (Manual) 58 (40-60) % Band Neutrophils % 0 (0-10) % Lymphocytes % (Manual) 30 (20-40) % Atypical Lymphs % 0 % Monocytes % (Manual) 10 (2-10) % Eosinophils % (Manual) 2 (0.7-5.8) % Basophils % (Manual) 0 L (0.1-1.2) Platelet Estimate Adequate RBC Morph Comment Normal PT 10.3 (9.5-12.1) SECONDS INR 0.94 APTT 25 (24-31) SECONDS Sodium 142 (136-145) mEq/L Potassium 4.0 (3.5-5.1) mEq/L Chloride 105 (98-107) mEq/L Carbon Dioxide 28 (21-32) mEq/L Anion Gap 13.0 (5-15) BUN 18 (7-18) mg/dL Creatinine 1.1 H (0.55-1.02) mg/dL Est Cr Clr Drug Dosing 67.43 mL/min Estimated GFR (MDRD) 56 (>60) mL/min BUN/Creatinine Ratio 16.4 (14-18) Glucose 141 H (74-106) mg/dL Calcium 9.7 (8.5-10.1) mg/dL Total Bilirubin 0.1 L (0.2-1.0) mg/dL AST 28 (15-37) U/L ALT 52 (14-59) U/L Alkaline Phosphatase 80 (46-116) U/L Troponin I (0.00-0.056) ng/mL C-Reactive Protein 0.4 (<1.0) mg/dL Total Protein 8.8 H (6.4-8.2) g/dl Albumin 4.0 (3.4-5.0) g/dl Globulin 4.8 gm/dL Albumin/Globulin Ratio 0.8 L (1-2) TSH 3rd Generation 0.469 (0.358-3.74) uIU/mL Urine Color (Yellow) Urine Appearance (Clear) Urine pH (5.0-8.0) Ur Specific Henning (1.005-1.030) Urine Protein (Negative) Urine Glucose (UA) (Negative) Urine Ketones (Negative) Urine Occult Blood (Negative) Urine Nitrite (Negative) Urine Bilirubin (Negative) Urine Urobilinogen (0.2-1.0) Ur Leukocyte Esterase (Negative) Urine RBC (0-5) /hpf Urine WBC (0-5) /hpf Ur Epithelial Cells (0-5) /hpf Urine Bacteria (FEW) /hpf Urine Mucus (FEW) /hpf Urine HCG, Qual (NEGATIVE) Urine Opiates Screen (PQKDRL=100) Ur Buprenorphine Scrn (CUTOFF=10) Ur Oxycodone Screen (WZH6JN=549) Urine Methadone Screen (DAYTBP=920) Ur Propoxyphene Screen (ODQTHX=641) Ur Barbiturates Screen (JVGKOH=289) Ur Tricyclics Screen (WPURHK=031) Ur Phencyclidine Scrn (CUTOFF=25) Ur Amphetamine Screen (CFIINC=803) U Methamphetamines Scrn (JDDBMY=690) U Benzodiazepines Scrn (SQILKI=053) U Cocaine Metab Screen (PDZCDL=985) U Marijuana (THC) Screen (CUTOFF=50) Ethyl Alcohol (0.00) gm% 09/30/18 09/30/18 09/30/18 Range/Units 11:30 11:30 11:50 WBC (3.98-10.04) K/mm3 RBC (3.98-5.22) M/mm3 Hgb (11.2-15.7) gm/L Hct (34.1-44.9) % MCV (79.4-94.8) fl MCH (25.6-32.2) pg MCHC (32.2-35.5) g/dl RDW Std Deviation (36.4-46.3) fL Plt Count (182-369) K/mm3 MPV (9.4-12.3) fl Neutrophils % (Manual) (40-60) % Band Neutrophils % (0-10) % Lymphocytes % (Manual) (20-40) % Atypical Lymphs % % Monocytes % (Manual) (2-10) % Eosinophils % (Manual) (0.7-5.8) % Basophils % (Manual) (0.1-1.2) Platelet Estimate RBC Morph Comment PT (9.5-12.1) SECONDS INR APTT (24-31) SECONDS Sodium (136-145) mEq/L Potassium (3.5-5.1) mEq/L Chloride (98-107) mEq/L Carbon Dioxide (21-32) mEq/L Anion Gap (5-15) BUN (7-18) mg/dL Creatinine (0.55-1.02) mg/dL Est Cr Clr Drug Dosing mL/min Estimated GFR (MDRD) (>60) mL/min BUN/Creatinine Ratio (14-18) Glucose (74-106) mg/dL Calcium (8.5-10.1) mg/dL Total Bilirubin (0.2-1.0) mg/dL AST (15-37) U/L ALT (14-59) U/L Alkaline Phosphatase (46-116) U/L Troponin I < 0.017 (0.00-0.056) ng/mL C-Reactive Protein (<1.0) mg/dL Total Protein (6.4-8.2) g/dl Albumin (3.4-5.0) g/dl Globulin gm/dL Albumin/Globulin Ratio (1-2) TSH 3rd Generation (0.358-3.74) uIU/mL Urine Color (Yellow) Urine Appearance (Clear) Urine pH (5.0-8.0) Ur Specific Henning (1.005-1.030) Urine Protein (Negative) Urine Glucose (UA) (Negative) Urine Ketones (Negative) Urine Occult Blood (Negative) Urine Nitrite (Negative) Urine Bilirubin (Negative) Urine Urobilinogen (0.2-1.0) Ur Leukocyte Esterase (Negative) Urine RBC (0-5) /hpf Urine WBC (0-5) /hpf Ur Epithelial Cells (0-5) /hpf Urine Bacteria (FEW) /hpf Urine Mucus (FEW) /hpf Urine HCG, Qual Negative (NEGATIVE) Urine Opiates Screen (QCFYOG=619) Ur Buprenorphine Scrn (CUTOFF=10) Ur Oxycodone Screen (MCW4AZ=248) Urine Methadone Screen (VFVEBM=455) Ur Propoxyphene Screen (MSJVXC=833) Ur Barbiturates Screen (BEXBIJ=143) Ur Tricyclics Screen (OMJUSX=679) Ur Phencyclidine Scrn (CUTOFF=25) Ur Amphetamine Screen (TMTSKD=732) U Methamphetamines Scrn (JUVDMC=820) U Benzodiazepines Scrn (BMBGQQ=918) U Cocaine Metab Screen (NZBXRT=284) U Marijuana (THC) Screen (CUTOFF=50) Ethyl Alcohol 0.00 (0.00) gm% 09/30/18 09/30/18 Range/Units 11:50 11:50 WBC (3.98-10.04) K/mm3 RBC (3.98-5.22) M/mm3 Hgb (11.2-15.7) gm/L Hct (34.1-44.9) % MCV (79.4-94.8) fl MCH (25.6-32.2) pg MCHC (32.2-35.5) g/dl RDW Std Deviation (36.4-46.3) fL Plt Count (182-369) K/mm3 MPV (9.4-12.3) fl Neutrophils % (Manual) (40-60) % Band Neutrophils % (0-10) % Lymphocytes % (Manual) (20-40) % Atypical Lymphs % % Monocytes % (Manual) (2-10) % Eosinophils % (Manual) (0.7-5.8) % Basophils % (Manual) (0.1-1.2) Platelet Estimate RBC Morph Comment PT (9.5-12.1) SECONDS INR APTT (24-31) SECONDS Sodium (136-145) mEq/L Potassium (3.5-5.1) mEq/L Chloride (98-107) mEq/L Carbon Dioxide (21-32) mEq/L Anion Gap (5-15) BUN (7-18) mg/dL Creatinine (0.55-1.02) mg/dL Est Cr Clr Drug Dosing mL/min Estimated GFR (MDRD) (>60) mL/min BUN/Creatinine Ratio (14-18) Glucose (74-106) mg/dL Calcium (8.5-10.1) mg/dL Total Bilirubin (0.2-1.0) mg/dL AST (15-37) U/L ALT (14-59) U/L Alkaline Phosphatase (46-116) U/L Troponin I (0.00-0.056) ng/mL C-Reactive Protein (<1.0) mg/dL Total Protein (6.4-8.2) g/dl Albumin (3.4-5.0) g/dl Globulin gm/dL Albumin/Globulin Ratio (1-2) TSH 3rd Generation (0.358-3.74) uIU/mL Urine Color Yellow (Yellow) Urine Appearance Clear (Clear) Urine pH 7.0 (5.0-8.0) Ur Specific Henning 1.015 (1.005-1.030) Urine Protein Negative (Negative) Urine Glucose (UA) Negative (Negative) Urine Ketones Negative (Negative) Urine Occult Blood Negative (Negative) Urine Nitrite Negative (Negative) Urine Bilirubin Negative (Negative) Urine Urobilinogen 0.2 (0.2-1.0) Ur Leukocyte Esterase Negative (Negative) Urine RBC 0-5 (0-5) /hpf Urine WBC 0-5 (0-5) /hpf Ur Epithelial Cells 0-5 (0-5) /hpf Urine Bacteria Not seen (FEW) /hpf Urine Mucus Not seen (FEW) /hpf Urine HCG, Qual (NEGATIVE) Urine Opiates Screen Negative (PWLNTJ=322) Ur Buprenorphine Scrn Negative (CUTOFF=10) Ur Oxycodone Screen Negative (JWD6QL=491) Urine Methadone Screen Negative (RANQMJ=986) Ur Propoxyphene Screen Negative (VVUVLN=811) Ur Barbiturates Screen Negative (HYFGZP=834) Ur Tricyclics Screen Negative (JBHJZY=468) Ur Phencyclidine Scrn Negative (CUTOFF=25) Ur Amphetamine Screen Negative (VXZQLN=972) U Methamphetamines Scrn Negative (VPAGHI=056) U Benzodiazepines Scrn Negative (NUWYJP=261) U Cocaine Metab Screen Negative (EPPKPV=619) U Marijuana (THC) Screen Negative (CUTOFF=50) Ethyl Alcohol (0.00) gm% Meds: Medications Discontinued Medications Generic Name Dose Route Start Last Admin Trade Name Freq PRN Reason Stop Dose Admin Sodium Chloride 1,000 mls @ 999 mls/hr 09/30/18 11:25 09/30/18 11:58 Normal Saline IV 09/30/18 12:25 999 mls/hr ONETIME ONE Administration Sodium Chloride 1,000 mls @ 500 mls/hr 09/30/18 11:25 09/30/18 11:58 Normal Saline IV 09/30/18 13:24 500 mls/hr .BOLUS ONE Administration Midodrine 2.5 mg 09/30/18 16:39 09/30/18 16:47 Midodrine PO 09/30/18 16:40 2.5 mg ONETIME ONE Administration Ondansetron HCl 4 mg 09/30/18 11:25 09/30/18 11:56 Zofran IVPUSH 09/30/18 11:26 4 mg ONETIME ONE Administration Sodium Chloride 10 ml 09/30/18 11:25 09/30/18 11:56 Saline Flush FLUSH 10 ml ASDIRECTED PRN Administration Keep Vein Open - Re-Assessments/Exams Free Text/Narrative Re-Assessment/Exam: IV will be established with normal saline fluid bolus. EKG, chest x-ray, CT head /neck without contrast will be obtained. In addition labs to be obtained include : CBC, chem 14, drug screen, TSH, UA, troponin, coag studies, hCG, and CRP. Orthostatic vital signs were attempted by nursing staff. With standing patient became quite dizzy and felt as she was going to pass out. Thus will were unable to obtain safely. Labs reviewed: CBC, coag studies, ua, and toxicology was negative. HCG was negative. C14 revealed cr 1.1, glucose 141,crp 0.4, TSH 0.4 and negative troponin. Chest x-ray revealed no acute findings. CT cervical spine impression: Nothing acute is appreciated on CT study of cervical spine. Head CT nothing acute is appreciated on noncontrast head CT scan. EKG sinus bradycardia at a rate of 35. GA interval of 155. QTC 408. No acute ST changes noted. I did review previous ED visit 08/07/2018. Heart rate was noted to be low in the 40s and would increase into the 60s with standing. She also complained of some dizziness and lightheadedness with standing and ambulation. She was on tizanidine and was noted that to the main side effects associated with taking this medication include bradycardia and also hypotension. 48 hour Holter monitor was ordered. Results of the Holter monitor indicated mean heart rate was 52 with a minimal heart rate of 37. 09/30/18 15:[address] Lee and she will come to the E.D. 09/30/18 15:43 Dr. Lee has arrived to the E.D. and will see the patient. Dr. Lee has spoken with the patient and father. Father is leaving for [place] and the patient is wanting to go to [place] as well. Dr. Lee recommended midodrine for hypotension and to stop the tizanidine and clonazepam. Dr. Lee recommends patient be on midodrine 2.5mg up to three times a day for 3 days. Suspect symptoms should completely resolve with stopping medications. 1628 Patient has gotten up to go to the bathroom 3 times. Has complained of some mild dizziness. Orthostatic vital signs were obtained indicating she still remains orthostatic. Heart rates in the 50s at this point. I spoke with Dr. Lee again. Patient is reluctant to go to [place]. Seeks admission to the hospital. Dr. Lee recommends trying the midodrine first. This has been ordered. Patient agrees to try. ETOH was negative. 1749 Reassessment, patient's heart rates in the mid 40s, blood pressure 124/90, SPO2 100%, respiratory rate 12. With awakening patient is alert and oriented 3. She is feeling much better after the IV fluids and also the midodrine. I will have nursing staff get the patient up to ambulate and see how she does. 09/30/18 17:57 Nursing staff has gotten the patient up to ambulate and she feels much better. Heart rates in the high 40s. Blood pressure normotensive. She has no symptoms. Patient will be discharged home with instructions as documented. Return precautions were discussed with her. She had no further questions or concerns and agreed with plan. Departure - Departure Time of Disposition: 17:55 Disposition: Home, Self-Care 01 Clinical Impression: Bradycardia, Postural hypotension Adverse reaction to drug Qualifiers: Encounter type: initial encounter Qualified Code(s): T50.905A - Adverse effect of unspecified drugs, medicaments and biological substances, initial encounter Prescriptions: Midodrine 2.5 mg PO TID #9 tab Instructions: Hypotension, [id number], Bradycardia, Adult Referrals: Nicole Pacheco MD [Primary Care Provider] - Forms: ED Department Discharge Additional Instructions: Take the Midodrine as prescribed for the next three days for hypotension. Suspect you for slow heart rate and hypotension is secondary to taking tizanidine and also clonazepam. Push the fluids. Stop taking the tizanidine and also clonazepam. May continue using the ketamine cream as prescribed. If symptoms persist please follow up with your primary care provider for further evaluation. If you develop any new or worsening symptoms please return back to the ED. Please monitor blood pressure twice daily utilizing the same arm, same time, and allowing yourself to relax prior to taking. Keep a log of the blood pressure and also heart rate. After stopping the midodrine continue taking blood pressure monitoring for any changes. Again I suspect the blood pressure and heart rate will improve after stopping the tizanidine. If not evaluation by cardiologists will be required. - My Orders Last 24 Hours: My Active Orders 09/30/18 11:25 EKG Documentation Completion [RC] STAT Peripheral IV Insertion Adult [OM.PC] Routine 09/30/18 11:26 Peripheral IV Care [RC] . DIRECTED - Assessment/Plan Last 24 Hours: My Active Orders 09/30/18 11:25 EKG Documentation Completion [RC] STAT Peripheral IV Insertion Adult [OM.PC] Routine 09/30/18 11:26 Peripheral IV Care [RC] . DIRECTED
--- NOTE | 2018-09-30 12:28 | CT ---
Head CT Technique: Multiple axial sections through the brain were obtained. Intravenous contrast was not utilized. Comparison: No prior intracranial imaging is available. Findings: Ventricles along with basal cisterns and sulci over the convexities appear within normal limits for the patient's age. No abnormal parenchymal densities are seen. No evidence of intracranial hemorrhage. No midline shift or mass effect is seen. Bone window settings were reviewed which shows the visualized sinuses to appear clear. No acute calvarial abnormality is identified. Impression: 1. Nothing acute is appreciated on noncontrast head CT exam. Diagnostic code #1
--- NOTE | 2018-09-30 12:32 | CT ---
CT cervical spine Technique: Multiple axial sections were obtained from above C1 inferiorly to the bottom of T3. Reconstructed sagittal and coronal images were reviewed. Comparison: No prior cervical spine imaging. Findings: Mild disc space narrowing is noted at C5-6 and C6-7 with posterior osteophytes as well as anterior osteophytes. Other disc spaces are preserved. Vertebral body heights are preserved. No fracture is identified. No bony central or bony neural foraminal stenosis is seen. No abnormal subluxation is seen. Mild mucosal thickening is seen within both maxillary sinuses most likely chronic. Impression: 1. Minimal degenerative change. Slight sinus findings which are most likely chronic. 2. Nothing acute is appreciated on CT study of the cervical spine. Diagnostic code #2
--- NOTE | 2018-09-30 12:41 | CR ---
Chest: Portable view of the chest was obtained. Comparison: Prior chest x-ray of 09/11/18. Heart size and mediastinum are normal. Lungs are clear. Bony structures are grossly intact. Impression: 1. Nothing acute is seen on portable chest x-ray. Diagnostic code #1
[2018-09-30] MEDS ORDERED: Midodrine 5 MG Tab PO ONE (16:39)
== END 2018-09-30 18:11 | disposition home or self-care (01) ==
LOC: JD.ED 09:45
DX: I95.1 Orthostatic hypotension (principal); T50.905A Adverse effect of unspecified drugs, medicaments and biological substances, initial encounter; R00.1 Bradycardia, unspecified; Z88.0 Allergy status to penicillin; Z88.1 Allergy status to other antibiotic agents; Z96.22 Myringotomy tube(s) status
CPT/HCPCS: 36415; 70450; 71045; 72125; 80053; 80306; 81001; 81025; 84443; 84484; 85007; 85027; 85610; 85730; 86140; 93005; 96361; 96374; 99284; A9270; G0480; J2405; J7040

== ENCOUNTER 2018-10-20 16:20 | Emergency (ER) | payer MEDICAID ==
--- NOTE | 2018-10-20 17:03 | EDM.PDOC ---
<Tyrel Lopez - Last Filed: 10/20/18 18:24> ED HPI GENERAL MEDICAL PROBLEM - General Chief Complaint: Neurological Problem Stated Complaint: NERVE PAIN AND SHOCKS/ DIZZY AND LIGHT HEADED Time Seen by Provider: 10/20/18 17:00 Back Pain Score (Numeric/FACES): 8 Neck Pain Score (Numeric/FACES): 8 - Related Data Allergies Allergy/AdvReac Type Severity Reaction Status Date / Time amoxicillin [Amoxicillin] Allergy Hives Verified 09/30/18 10:42 Penicillins Allergy Hives Verified 09/30/18 10:42 Home Meds: Home Meds FLUoxetine HCl [Prozac] 20 mg PO DAILY 08/10/18 [History] Ketamine Cream. 09/30/18 [History] Midodrine 2.5 mg PO TID #9 tab 09/30/18 [Rx] Baclofen 10 mg PO Q12HR PRN 5 Days #10 tablet 10/20/18 [Rx] Past Medical History HEENT History: Reports: None Cardiovascular History: Reports: None, Other (See Below) Other Cardiovascular History: heart murmur as a baby Respiratory History: Reports: Asthma Gastrointestinal History: Reports: None Genitourinary History: Reports: None MECHANICAL FACILITIES TECHNICIAN History: Reports: Other (See Below) Other MECHANICAL FACILITIES TECHNICIAN History: ovarian cysts, laprascopy Musculoskeletal History: Reports: None Neurological History: Reports: Migraines Psychiatric History: Reports: Anxiety, Depression Endocrine/Metabolic History: Reports: None Hematologic History: Reports: None Immunologic History: Reports: None Oncologic (Cancer) History: Reports: None Dermatologic History: Reports: None - Infectious Disease History Infectious Disease History: Reports: None - Past Surgical History HEENT Surgical History: Reports: Adenoidectomy, Myringotomy w Tube(s) Cardiovascular Surgical History: Reports: None GI Surgical History: Reports: None Female Surgical History: Reports: None Endocrine Surgical History: Reports: None Neurological Surgical History: Reports: None Musculoskeletal Surgical History: Reports: Other (See Below), Shoulder Surgery Other Musculoskeletal Surgeries/Procedures:: herniated discs Oncologic Surgical History: Reports: None Dermatological Surgical History: Reports: None Social & Family History - Family History Family Medical History: Noncontributory - Tobacco Use Smoking Status *Q: Current Every Day Smoker Years of Tobacco use: 20 Packs/Tins Daily: 0.5 - Caffeine Use Caffeine Use: Reports: Energy Drinks, Soda, Tea - Recreational Drug Use Recreational Drug Use: No Course - Vital Signs Last Recorded V/S: Last Vital Signs Temp 97.2 F 10/20/18 16:33 Pulse 47 L 10/20/18 16:33 Resp 20 10/20/18 16:33 BP 157/81 H 10/20/18 16:33 Pulse Ox 100 10/20/18 16:33 - Orders/Labs/Meds Meds: Medications Discontinued Medications Generic Name Dose Route Start Last Admin Trade Name Freq PRN Reason Stop Dose Admin Baclofen 20 mg 10/20/18 17:22 10/20/18 17:36 Lioresal PO 10/20/18 17:23 20 mg ONETIME ONE Administration Hydromorphone HCl 1 mg 10/20/18 17:22 10/20/18 17:32 Dilaudid IM 10/20/18 17:23 1 mg ONETIME ONE Administration - Radiology Interpretation Free Text/Narrative:: 38-year-old female presents to the ED with "muscle spasms. This is been a problem off and on for the last 6 weeks which is uncontrolled spasms of her limbs. She did see a neurologist in [place] within the last week who did not offer any treatment plan. She has a new onset type I diabetic and is currently in a honeymoon period and does not need any insulin at this time. She states that the pain she is experiencing a sharp stabbing lancinating or neurogenic in origin. She apparently has tried gabapentin and Lyrica without any relief. To the ED with her father seeking help with the pain and muscle spasms which are quite painful. She states the only way she can keep them at bay is to keep walking and moving. She has been able sleep for the last 2 days. Case discussed with nurse practitioner latisha Redmond and we came up with some treatment options with baclofen starting with 10 mg 3 times a day and increasing to 20 mg twice a day ID after 5 days if the initial trial. Is successful in relieving her discomfort. She will be given an IM injection of Dilaudid 1 mg for acute pain relief at this time. She is to follow-up with her personal care physician next week. Departure - Departure Disposition: Home, Self-Care 01 Clinical Impression: Muscle spasm - Discharge Information Prescriptions: Baclofen 10 mg PO Q12HR PRN 5 Days #10 tablet PRN Reason: muscle spasms Instructions: Muscle Cramps and Spasms, [id number] Referrals: Nicole Pacheco MD [Primary Care Provider] - Forms: ED Department Discharge Additional Instructions: Your have been diagnosed with severe muscle spasms. You received Dilaudid and baclofen condition improved. I recommend he follow up with your PCP and neurologist for further evaluation and treatment. He has been given baclofen 10 mg to take later this evening if needed. You've received a prescription for baclofen take as directed. Return to the emergency room for any new or acutely worsening symptoms. <Latisha Redmond - Last Filed: 10/20/18 18:40> ED HPI GENERAL MEDICAL PROBLEM - General Source of Information: Reports: Patient History Limitations: Reports: No Limitations - History of Present Illness INITIAL COMMENTS - FREE TEXT/NARRATIVE: 38 y/o female presents to ER with cc "muscle spasms for the past 6 weeks." She states the spasms she is to go away when she walks. She states last evening the spasms became worse she went to lay down and couldn't get no relief. She reports she tried walking tried using ketamine cream but had little to no relief. She states that the spasms are "extremely painful." Patient does state that she is under the care of a neurologist, semiconductor wafers marker and pain specialist for this ailment. She also reports that she is newly diagnosed. Diabetic and her sugar today was 177. She denies any incontinence of bowel or bladder. She denies any fever or chills, nausea or constipation. She is accompanied by her father who is concerned for her well-being. Onset Date: 09/09/17 Onset Time: 09:00 Duration: Getting Worse Location: Reports: Generalized Quality: Reports: Other (muscle spasms) Improves with: Reports: None Worsens with: Reports: None Associated Symptoms: Reports: Weakness. Denies: Confusion, Chest Pain, Cough, Fever/Chills, Headaches, Seizure, Shortness of Breath, Syncope ED ROS GENERAL - Review of Systems Review Of Systems: See Below Constitutional: Reports: Decreased Appetite. Denies: Fever, Chills HEENT: Reports: Vision Change (blurred vison) Respiratory: Reports: No Symptoms Cardiovascular: Reports: No Symptoms Endocrine: Reports: No Symptoms GI/Abdominal: Reports: No Symptoms : Reports: No Symptoms Musculoskeletal: Reports: Muscle Pain, Other (generalized muscle spasms.) Skin: Reports: No Symptoms Neurological: Reports: Difficulty Walking, Weakness. Denies: Confusion, Dizziness, Headache Psychiatric: Reports: Anxiety Hematologic/Lymphatic: Reports: No Symptoms Immunologic: Reports: No Symptoms ED EXAM, NEURO - Physical Exam Exam: See Below Exam Limited By: No Limitations General Appearance: Alert, WD/WN, No Apparent Distress Eye Exam: Bilateral Eye: EOMI, PERRL Ears: Normal External Exam, Normal Canal, Hearing Grossly Normal, Normal TMs Nose: Normal Inspection, Normal Mucosa, No Blood Throat/Mouth: Normal Inspection, Normal Lips, Normal Teeth, Normal Gums, Normal Oropharynx, Normal Voice, No Airway Compromise Head Exam: Atraumatic, Normocephalic Neck: Normal Inspection, Supple, Non-Tender, Full Range of Motion Respiratory/Chest: No Respiratory Distress, Lungs Clear, Normal Breath Sounds, No Accessory Muscle Use, Chest Non-Tender Cardiovascular: Normal Peripheral Pulses, Regular Rate, Rhythm, No Edema, No Gallop, No JVD, No Murmur, No Rub GI/Abdominal: Normal Bowel Sounds, Soft, Non-Tender, No Organomegaly, No Distention, No Abnormal Bruit, No Mass, Pelvis Stable Neurological: Alert, Normal Mood/Affect, Normal Dorsiflexion, CN II-XII Intact, Normal Plantar Flexion, Normal Gait, Normal Reflexes, No Motor/Sensory Deficits , Oriented x 3 Back Exam: Normal Inspection, Full Range of Motion Extremities: Normal Inspection, Normal Range of Motion, Non-Tender, No Pedal Edema, Normal Capillary Refill Psychiatric: Normal Affect, Anxious Skin Exam: Warm, Dry, Intact, Normal Color, No Rash Course - Re-Assessments/Exams Free Text/Narrative Re-Assessment/Exam: 10/20/18 18:17 38 y/o female presented to ER with chief complaints of generalized muscle spasms. I'm uncertain of the etiology. Patient received Dilaudid 1 mg IM baclofen 10 mg by mouth and her condition improved. I will discharge home with instructions for her to follow up with her neurologist and PCP for further evaluation and treatment of her symptoms. Instructed patient within to the emergency room for any new or acutely worsening symptoms. Patient verbalized understanding and is comfortable plan for discharge. Patient is stable time discharge. Patient did receive [id number] mg to take home for later this evening if needed for spasms since pharmacy is closed. Departure - Departure Time of Disposition: 18:35 Condition: Good - Discharge Information *PRESCRIPTION DRUG MONITORING PROGRAM REVIEWED*: Not Applicable *COPY OF PRESCRIPTION DRUG MONITORING REPORT IN PATIENT BARB: Not Applicable
[2018-10-20] MEDS ORDERED: HYDROmorphone 1 MG/ML Syringe IM ONE (17:22)
[2018-10-20] MEDS ORDERED: Baclofen 10 MG Tab PO ONE (17:22)
== END 2018-10-20 19:00 | disposition home or self-care (01) ==
LOC: JD.ED 16:20
DX: M62.838 Other muscle spasm (principal); F17.210 Nicotine dependence, cigarettes, uncomplicated; Z79.899 Other long term (current) drug therapy; Z88.1 Allergy status to other antibiotic agents; Z88.0 Allergy status to penicillin
CPT/HCPCS: 96372; 99283; A9270; J1170

== ENCOUNTER 2019-04-20 18:51 | Emergency (ER) | payer MEDICAID ==
[2019-04-20] MEDS ORDERED: Metoclopramide 10 MG/2 ML SDV IVPUSH ONE (19:10)
[2019-04-20] MEDS ORDERED: diphenhydrAMINE 50 MG/ML SDV IVPUSH ONE (19:12)
[2019-04-20] MEDS ORDERED: HYDROmorphone 0.5 MG/0.5 ML Syringe IVPUSH ONE (19:12)
[2019-04-20] MEDS ORDERED: Dextrose 5%-0.9% NaCl 1,000 ML IV SCH (19:15)
--- NOTE | 2019-04-20 19:15 | EDM.PDOC ---
ED HPI GENERAL MEDICAL PROBLEM - General Chief Complaint: Headache Stated Complaint: [facility] Time Seen by Provider: 04/20/19 19:10 Source of Information: Reports: Patient, EMS History Limitations: Reports: No Limitations - History of Present Illness INITIAL COMMENTS - FREE TEXT/NARRATIVE: 38-year-old female presents to the ED per [facility] ambulance. Patient states she was out for short walk and came home to lay down because she wasn't feeling all that well. She then developed a severe pressure headache in the supple aspect of her skull that radiates up into the parietal scalp bilaterally. No associated nausea vomiting. She claims a headache and sore she' s ever experienced. By history she has had frequent falls with numerous wounds elbows knees. 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 She is very dehydrated clinically. She states is the worst headache she's ever had. She states she is prone to migraines but hasn't had a really bad headache for over a year. She reports that she feels constipated and bloated. Has not had a bowel movement for 3-4 days. Onset: Today Onset Date: 04/20/19 Onset Time: 17:50 Duration: Minutes: Location: Reports: Head (Exceptional scalp rating up into the parietal scalp bilaterally.), Neck Quality: Reports: Ache, Throbbing, Other (Pounding headache.) Severity: Severe (Wrist headache she is ever experienced.) Improves with: Reports: None Worsens with: Reports: None Context: Denies: Activity, Exercise, Lifting, Sick Contact, Trauma, Other Associated Symptoms: Reports: Headaches, Loss of Appetite, Malaise, Nausea/ Vomiting. 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 History: ovarian cysts, laprascopy Musculoskeletal History: Reports: None Neurological History: Reports: Migraines Psychiatric History: Reports: Anxiety, Depression Endocrine/Metabolic History: Reports: None, Diabetes, Type II Hematologic History: Reports: None Immunologic History: Reports: None Oncologic (Cancer) History: Reports: None Dermatologic History: Reports: None - Infectious Disease History Infectious Disease History: Reports: None - Past Surgical History HEENT Surgical History: Reports: Adenoidectomy, Myringotomy w Tube(s) Cardiovascular Surgical History: Reports: None GI Surgical History: Reports: None Female Surgical History: Reports: None Endocrine Surgical History: Reports: None Neurological Surgical History: Reports: None Musculoskeletal Surgical History: Reports: Other (See Below), Shoulder Surgery Oncologic Surgical History: Reports: None Dermatological Surgical History: Reports: None Social & Family History - Family History Family Medical History: Noncontributory - Tobacco Use Smoking Status *Q: Current Every Day Smoker Years of Tobacco use: 20 Packs/Tins Daily: 0.5 - Caffeine Use Caffeine Use: Reports: Coffee, Energy Drinks, Soda - Recreational Drug Use Recreational Drug Use: No - Living Situation & Occupation Living situation: Reports: Occupation: Unemployed ED [facility] - Review of Systems Review Of Systems: See Below Constitutional: Reports: Malaise, Weakness, Fatigue, Decreased Appetite. Denies : Fever, Chills HEENT: Reports: No Symptoms, Other Respiratory: Reports: No Symptoms (Fighting off an outbreak of herpes simplex lips and face) Cardiovascular: Reports: Other (She states she is often quite lightheaded due to low blood pressure. Her pressures 183/96 and came down to 170/100. At home it was 180/135.) Endocrine: Reports: Fatigue GI/Abdominal: Reports: Abdominal Pain, Constipation (Hasn't had a bowel movement for 3-4 days.), Distension : Reports: No Symptoms, Other (Urine is dark in color.) Musculoskeletal: Reports: No Symptoms Skin: Reports: Other (Numerous sores on her face and lips. Healing wound right elbow and 2 wounds right knee.) Neurological: Reports: Dizziness, Headache, Difficulty Walking, Weakness, Gait Disturbance. Denies: Confusion, Numbness, Paresthesia, Pre-Existing Deficit, Seizure, Syncope, Tingling, Tremors, Trouble Speaking, Change in Speech Psychiatric: Reports: Anxiety Hematologic/Lymphatic: Reports: No Symptoms Immunologic: Reports: No Symptoms - Physical Exam Exam: See Below Exam Limited By: No Limitations General Appearance: Alert, WD/WN, Anxious, Mild Distress, Other (Speech is slightly dysarthric.) Eye Exam: Bilateral Eye: Normal Inspection (No scleral icterus. Color is good.) Throat/Mouth: Other (Tongue is extremely dry and coated. Lips are dry and chapped. They also appear to have herpes simplex ulcerations that are in the healing phase.) Head Exam: Atraumatic, Normocephalic, Other (No warts signs of head or facial trauma.) Neck: Normal Inspection, Supple, Non-Tender, Full Range of Motion, Other (Pain at the base of her skull.) Respiratory/Chest: No Respiratory Distress, Lungs Clear, Normal Breath Sounds, No Accessory Muscle Use Cardiovascular: Normal Peripheral Pulses, No Edema, No Gallop, No Murmur, No Rub , Bradycardia GI/Abdominal: Soft (Slightly hyperactive in all 4 quadrants), Non-Tender, No Organomegaly (Distended and minimally tympanitic to percussion.), No Abnormal Bruit, No Mass, Pelvis Stable, Distended, Abnormal Bowel Sounds Neuro Exam (Abbreviated): Alert, Oriented, CN II-XII Intact, Normal Cognition Back Exam: Normal Inspection, Full Range of Motion. No: CVA Tenderness (L), CVA Tenderness (R) Extremities: Normal Inspection, Normal Range of Motion, Non-Tender Psychiatric: Anxious, Other (Appears to be under the influence of medication or drugs.) Skin Exam: Warm, Dry, Intact, Normal Color, No Rash EKG INTERPRETATION EKG Date: 04/20/19 Time: 20:23 Rhythm: Other (Sinus bradycardic) Rate (Beats/Min): 46 [place]: Normal P-Wave: Enlarged QRS: Normal (Consider left atrial hypertrophy) ST-T: Normal QT: Normal EKG Interpretation Comments: Essentially normal ECG Course - Vital Signs Last Recorded V/S: Last Vital Signs Temp 36.6 C 04/20/19 18:57 Pulse 52 L 04/20/19 20:32 Resp 17 04/20/19 20:32 BP 115/71 04/20/19 20:32 Pulse Ox 95 04/20/19 20:32 - Orders/Labs/Meds Orders: Active Orders 24 hr Category Date Time Status EKG Documentation Completion [RC] STAT Care 04/20/19 20:22 Active Abdomen 1V Flat [CR] Stat Exams 04/20/19 19:15 Taken Labs: Laboratory Tests 04/20/19 04/20/19 04/20/19 Range/Units 19:15 19:15 19:20 WBC 14.35 H (3.98-10.04) K/mm3 RBC 4.27 (3.98-5.22) M/mm3 Hgb 13.5 (11.2-15.7) gm/dl Hct 40.7 (34.1-44.9) % MCV 95.3 H (79.4-94.8) fl MCH 31.6 (25.6-32.2) pg MCHC 33.2 (32.2-35.5) g/dl RDW Std Deviation 44.0 (36.4-46.3) fL Plt Count 418 H (182-369) K/mm3 MPV 9.8 (9.4-12.3) fl Neut % (Auto) 65.1 (34.0-71.1) % Lymph % (Auto) 26.3 (19.3-51.7) % [place] % (Auto) 7.2 (4.7-12.5) % Eos % (Auto) 0.7 (0.7-5.8) Baso % (Auto) 0.2 (0.1-1.2) % Neut # (Auto) 9.34 H (1.56-6.13) K/mm3 Lymph # (Auto) 3.78 H (1.18-3.74) K/mm3 [place] # (Auto) 1.03 H (0.24-0.36) K/mm3 Eos # (Auto) 0.10 (0.04-0.36) K/mm3 Baso # (Auto) 0.03 (0.01-0.08) K/mm3 Manual Slide Review Abnormal smear Sodium (136-145) mEq/L Potassium (3.5-5.1) mEq/L Chloride (98-107) mEq/L Carbon Dioxide (21-32) mEq/L Anion Gap (5-15) BUN (7-18) mg/dL Creatinine (0.55-1.02) mg/dL Est Cr Clr Drug Dosing mL/min Estimated GFR (MDRD) (>60) mL/min BUN/Creatinine Ratio (14-18) Glucose (74-106) mg/dL Hemoglobin A1c (4.50-6.20) % Calcium (8.5-10.1) mg/dL Magnesium (1.8-2.4) mg/dl Total Bilirubin (0.2-1.0) mg/dL AST (15-37) U/L ALT (14-59) U/L Alkaline Phosphatase (46-116) U/L C-Reactive Protein (<1.0) mg/dL Total Protein (6.4-8.2) g/dl Albumin (3.4-5.0) g/dl Globulin gm/dL Albumin/Globulin Ratio (1-2) Urine Color Light yellow (Yellow) Urine Appearance Clear (Clear) Urine pH 7.0 (5.0-8.0) Ur Specific [place] 1.015 (1.005-1.030) Urine Protein Negative (Negative) Urine Glucose (UA) Negative (Negative) Urine Ketones Negative (Negative) Urine Occult Blood Trace-intact H (Negative) Urine Nitrite Negative (Negative) Urine Bilirubin Negative (Negative) Urine Urobilinogen 0.2 (0.2-1.0) Ur Leukocyte Esterase Negative (Negative) Urine RBC Not seen (0-5) /hpf Urine WBC 0-5 (0-5) /hpf Ur Squamous Epith Cells 0-5 (0-5) /hpf Urine Bacteria Not seen (FEW) /hpf Urine Mucus Not seen (FEW) /hpf Urine Opiates Screen Negative (APKWFP=143) Ur Buprenorphine Scrn Negative (CUTOFF=10) Ur Oxycodone Screen Negative (ZMX1JR=341) Urine Methadone Screen Negative (DTYUJQ=548) Ur Propoxyphene Screen Negative (OXWWII=447) Ur Barbiturates Screen Negative (LJBZUM=646) Ur Tricyclics Screen Negative (IEHVTV=406) Ur Phencyclidine Scrn Negative (CUTOFF=25) Ur Amphetamine Screen Negative (LWVWMY=640) U Methamphetamines Scrn Negative (FBQUHX=226) U Benzodiazepines Scrn Negative (SVSRIU=175) U Cocaine Metab Screen Negative (HJNYCB=063) U Marijuana (THC) Screen Negative (CUTOFF=50) Ethyl Alcohol (0.00) gm% Ketones (0.0-0.3) mM 04/20/19 04/20/19 04/20/19 Range/Units 19:20 19:20 19:20 WBC (3.98-10.04) K/mm3 RBC (3.98-5.22) M/mm3 Hgb (11.2-15.7) gm/dl Hct (34.1-44.9) % MCV (79.4-94.8) fl MCH (25.6-32.2) pg MCHC (32.2-35.5) g/dl RDW Std Deviation (36.4-46.3) fL Plt Count (182-369) K/mm3 MPV (9.4-12.3) fl Neut % (Auto) (34.0-71.1) % Lymph % (Auto) (19.3-51.7) % [place] % (Auto) (4.7-12.5) % Eos % (Auto) (0.7-5.8) Baso % (Auto) (0.1-1.2) % Neut # (Auto) (1.56-6.13) K/mm3 Lymph # (Auto) (1.18-3.74) K/mm3 [place] # (Auto) (0.24-0.36) K/mm3 Eos # (Auto) (0.04-0.36) K/mm3 Baso # (Auto) (0.01-0.08) K/mm3 Manual Slide Review Sodium 138 (136-145) mEq/L Potassium 4.9 (3.5-5.1) mEq/L Chloride 101 (98-107) mEq/L Carbon Dioxide 28 (21-32) mEq/L Anion Gap 13.9 (5-15) BUN 22 H (7-18) mg/dL Creatinine 1.1 H (0.55-1.02) mg/dL Est Cr Clr Drug Dosing 67.43 mL/min Estimated GFR (MDRD) 56 (>60) mL/min BUN/Creatinine Ratio 20.0 H (14-18) Glucose 140 H (74-106) mg/dL Hemoglobin A1c 5.90 (4.50-6.20) % Calcium 8.8 (8.5-10.1) mg/dL Magnesium 2.1 (1.8-2.4) mg/dl Total Bilirubin 0.1 L (0.2-1.0) mg/dL AST 12 L (15-37) U/L ALT 24 (14-59) U/L Alkaline Phosphatase 88 (46-116) U/L C-Reactive Protein (<1.0) mg/dL Total Protein 7.8 (6.4-8.2) g/dl Albumin 3.5 (3.4-5.0) g/dl Globulin 4.3 gm/dL Albumin/Globulin Ratio 0.8 L (1-2) Urine Color (Yellow) Urine Appearance (Clear) Urine pH (5.0-8.0) Ur Specific [place] (1.005-1.030) Urine Protein (Negative) Urine Glucose (UA) (Negative) Urine Ketones (Negative) Urine Occult Blood (Negative) Urine Nitrite (Negative) Urine Bilirubin (Negative) Urine Urobilinogen (0.2-1.0) Ur Leukocyte Esterase (Negative) Urine RBC (0-5) /hpf Urine WBC (0-5) /hpf Ur Squamous Epith Cells (0-5) /hpf Urine Bacteria (FEW) /hpf Urine Mucus (FEW) /hpf Urine Opiates Screen (PKCFYA=907) Ur Buprenorphine Scrn (CUTOFF=10) Ur Oxycodone Screen (YZN6MU=653) Urine Methadone Screen (RHMZHJ=352) Ur Propoxyphene Screen (RLVEXJ=266) Ur Barbiturates Screen (FIFYQA=417) Ur Tricyclics Screen (PCNTZJ=672) Ur Phencyclidine Scrn (CUTOFF=25) Ur Amphetamine Screen (GHGPMF=497) U Methamphetamines Scrn (ZZROCV=190) U Benzodiazepines Scrn (XZQDDZ=824) U Cocaine Metab Screen (KKUONK=502) U Marijuana (THC) Screen (CUTOFF=50) Ethyl Alcohol 0.00 (0.00) gm% Ketones 0.22 (0.0-0.3) mM 04/20/19 Range/Units 19:21 WBC (3.98-10.04) K/mm3 RBC (3.98-5.22) M/mm3 Hgb (11.2-15.7) gm/dl Hct (34.1-44.9) % MCV (79.4-94.8) fl MCH (25.6-32.2) pg MCHC (32.2-35.5) g/dl RDW Std Deviation (36.4-46.3) fL Plt Count (182-369) K/mm3 MPV (9.4-12.3) fl Neut % (Auto) (34.0-71.1) % Lymph % (Auto) (19.3-51.7) % [place] % (Auto) (4.7-12.5) % Eos % (Auto) (0.7-5.8) Baso % (Auto) (0.1-1.2) % Neut # (Auto) (1.56-6.13) K/mm3 Lymph # (Auto) (1.18-3.74) K/mm3 [place] # (Auto) (0.24-0.36) K/mm3 Eos # (Auto) (0.04-0.36) K/mm3 Baso # (Auto) (0.01-0.08) K/mm3 Manual Slide Review Sodium (136-145) mEq/L Potassium (3.5-5.1) mEq/L Chloride (98-107) mEq/L Carbon Dioxide (21-32) mEq/L Anion Gap (5-15) BUN (7-18) mg/dL Creatinine (0.55-1.02) mg/dL Est Cr Clr Drug Dosing mL/min Estimated GFR (MDRD) (>60) mL/min BUN/Creatinine Ratio (14-18) Glucose (74-106) mg/dL Hemoglobin A1c (4.50-6.20) % Calcium (8.5-10.1) mg/dL Magnesium (1.8-2.4) mg/dl Total Bilirubin (0.2-1.0) mg/dL AST (15-37) U/L ALT (14-59) U/L Alkaline Phosphatase (46-116) U/L C-Reactive Protein 0.4 (<1.0) mg/dL Total Protein (6.4-8.2) g/dl Albumin (3.4-5.0) g/dl Globulin gm/dL Albumin/Globulin Ratio (1-2) Urine Color (Yellow) Urine Appearance (Clear) Urine pH (5.0-8.0) Ur Specific [place] (1.005-1.030) Urine Protein (Negative) Urine Glucose (UA) (Negative) Urine Ketones (Negative) Urine Occult Blood (Negative) Urine Nitrite (Negative) Urine Bilirubin (Negative) Urine Urobilinogen (0.2-1.0) Ur Leukocyte Esterase (Negative) Urine RBC (0-5) /hpf Urine WBC (0-5) /hpf Ur Squamous Epith Cells (0-5) /hpf Urine Bacteria (FEW) /hpf Urine Mucus (FEW) /hpf Urine Opiates Screen (KLCMXH=740) Ur Buprenorphine Scrn (CUTOFF=10) Ur Oxycodone Screen (BNQ8RX=212) Urine Methadone Screen (HXSMML=483) Ur Propoxyphene Screen (FKBUZM=997) Ur Barbiturates Screen (AYGGAZ=790) Ur Tricyclics Screen (NQQGBK=510) Ur Phencyclidine Scrn (CUTOFF=25) Ur Amphetamine Screen (YNSPCG=947) U Methamphetamines Scrn (QZFNNB=004) U Benzodiazepines Scrn (KHYQMA=834) U Cocaine Metab Screen (EETJVQ=880) U Marijuana (THC) Screen (CUTOFF=50) Ethyl Alcohol (0.00) gm% Ketones (0.0-0.3) mM Meds: Medications Discontinued Medications Generic Name Dose Route Start Last Admin Trade Name Freq PRN Reason Stop Dose Admin Diphenhydramine HCl 25 mg 04/20/19 19:12 04/20/19 19:23 Benadryl IVPUSH 04/20/19 19:13 25 mg ONETIME ONE Administration Hydralazine HCl 10 mg 04/20/19 19:54 04/20/19 20:21 Apresoline IVPUSH 04/20/19 19:55 10 mg ONETIME ONE Administration Hydromorphone HCl 0.5 mg 04/20/19 19:12 04/20/19 19:23 Dilaudid IVPUSH 04/20/19 19:13 0.5 mg ONETIME ONE Administration Dextrose/Sodium Chloride 1,000 mls @ 999 mls/hr 04/20/19 19:15 04/20/19 19:23 Dextrose 5%-Normal Saline IV 999 mls/hr ASDIRECTED GILLIAN Administration Magnesium Citrate 240 ml 04/20/19 21:28 04/20/19 21:33 Citrate Of Magnesia PO 04/20/19 21:29 296 ml ONETIME ONE Administration Magnesium Citrate Confirm 04/20/19 21:29 04/20/19 21:43 Citrate Of Magnesia Administered 04/20/19 21:30 Not Given Dose 296 ml .ROUTE .STK-MED ONE Metoclopramide HCl 7.5 mg 04/20/19 19:10 04/20/19 19:23 Reglan IVPUSH 04/20/19 19:11 7.5 mg ONETIME ONE Administration - Radiology Interpretation Free Text/Narrative:: 38-year-old female from [facility] comes to the ED per [facility] ambulance reporting a severe headache at the occipital aspect of her skull. She reports that she was out for walk and when she came home she laid down for short period time and that the headache started suddenly and she reports is the worst headache she is ever experience. Feels it primarily at the base of her skull rating up to both parietal aspects of the sides of her head. Constant throbbing pain. Mild associated nausea but no vomiting. She does not drive and therefore had no recourse to come to the hospital. Her speech is slightly dysarthric and she appears to be slightly under the influence of medication or drug. History suggests she's on ketamine cream. What this is being used for is unclear. She reports that her blood pressure is usually low and she falls frequently. She has a deep healing ulcer to the right elbow. More superficial wound to the right patella and right leg. Both of these are slightly warm to palpation. Plan IV D5 normal saline at open initially appears to be volume depleted. No history suggests alcohol or drug dependency but I am suspicious. Urine drug screen will be done. She has hypertension at present with BP 180/ 100. Heart rate is bradycardic at 47/m. Plan Reglan 7.5 mg IV with Dilaudid 0.5 mg IV and Benadryl 25 mg IV for headache relief. CT head will be done. One view of the abdomen will be obtained to assess her degree of constipation due to abdominal pain complaint. Urinalysis will be collected and urine drug screen. Of note one of her medications as clonazepam which could make her appear this drowsy and slightly dysarthric. - Re-Assessments/Exams Free Text/Narrative Re-Assessment/Exam: 04/20/19 19:39 x-ray of the abdomen reveals severe constipation involving the entire right hemicolon and most of the hepatic flexure of the transverse colon. Descending colon is full of stool and rectal vault has a mild amount of stool. No bowel obstruction. 04/20/19 19:54 blood pressure still remains markedly elevated at 176/92. I'm going to give her hydralazine 10 mg IV. She also remains bradycardic at 42/m. 04/20/19 20:17 CT head is been completed. It is within normal limits showing no sign of intracranial hemorrhage or mass effect. No skull fractures identified. No evidence of benign intracranial hypertension. EP is starting to come down and is now 161/98 5 minutes after hydralazine has been given IV. 04/20/19 20:20 Labs reveal a white count at 7 elevated at 14.35. The auto differential shows 65% neutrophils. Hemoglobin is 13.5 with hematocrit of 40.7. MCV is slightly elevated at 95.3. Platelet count is elevated at 418,000. Manual slide is pending. Sodium 138 with potassium of 4.9. Chloride 11 with a bicarbonate 28. Anion gap is 13.9. BUN is 22 with a creatinine of 1.1. GFR is 56. Glucose is 140. Calcium 8.8. Magnesium 2.1. Liver function normal. C- reactive protein 0.4. Total protein 7.8 with an albumin fraction of 3.5. Urinalysis shows trace of occult blood and no signs of infection. Urine drug screen is negative. Blood alcohol is 0.00. Ketones 0.22. 04/20/19 20:31 ECG reveals sinus bradycardia at 46/m. Possible mild left atrial hypertrophy. Otherwise normal ECG. BP is down to 115/71. 04/20/19 20:40 with her father he indicates that she is quite drowsy from the combination of meds that she's been taking. He had asked her to stop all of her medications abruptly yesterday and she's been off since yesterday morning which may account for why her blood pressure spiked tonight. This is likely the cause of her occipital headache. She is on tizanidine. She is on ketamine cream. She is on clonazepam and antidepressants. She has been sleeping since medications were given in the ED. As an aside he indicates that her blood sugars have been elevated as of late often 136 and up to 220 at times. He is asked her to modify her diet getting off soda pop another high carbs. I will therefore order a glycosylated protein as she does appear to be moderately volume depleted. Blood sugar in ED was 140. I'm not sure whether this was taken after or before the IV D5 normal saline was started. She remains fast asleep since receiving medications for headache relief. 04/20/19 21:28 evaluation shows her blood pressure is down to 102/63 and she is sleeping. Her glycosylated protein came back at 5.9 indicating she is not diabetic. Advise in this regard. She'll be discharged to home with magnesium citrate to take tomorrow morning when she awakens to provide bowel cleanse. It' s unclear whether or not she spiked her blood pressure due to lack of her normal medications. Is on low-dose clonazepam 0.5 mg in tizanidine 4 mg dosage. Advised father to cut the dosages in half because of the ketamine effect taking her sleepy and drowsy and more prone to falling. Wound on her elbow and right knee dated to be cleansed daily and antibiotic ointment placed such as bacitracin or Polysporin. Departure - Departure Time of Disposition: 21:30 Disposition: Home, Self-Care 01 Condition: Fair Clinical Impression: Constipation by delayed colonic transit Hypertension Qualifiers: Hypertension type: essential hypertension Qualified Code(s): I10 - Essential ( primary) hypertension Headache Qualifiers: Headache type: unspecified Headache chronicity pattern: acute headache Intractability: not intractable Qualified Code(s): R51 - Headache - Discharge Information *PRESCRIPTION DRUG MONITORING PROGRAM REVIEWED*: Not Applicable *COPY OF PRESCRIPTION DRUG MONITORING REPORT IN PATIENT BARB: Not Applicable Instructions: Migraine Headache, [id number], Constipation, Adult, Easy-to- Read, Hypertension, [id number] Referrals: Nicole Pacheco MD [Primary Care Provider] - Forms: ED Department Discharge Additional Instructions: Evaluation the emergency room tonight in regards to severe sudden onset of occipital headache shortly after laying down after a short walk. Pain is felt primarily for size of the occipital skull rating up into the upper part of your head. CT scan of the head was done to rule out intracranial bleeding or subdural hematoma and no such abnormality was identified. CT of the head is normal. Blood pressure remained markedly elevated at 175/100. He therefore given hydralazine 10 mg IV which did improve her blood pressure. Well back to normal. For the headache he received 0.5 mg of Dilaudid with Benadryl 25 mg and Reglan 7.5 mg which seemed to relieve the headache completely and allowed to sleep. Because reported elevated blood sugars when tested at home as of late a glycosylated protein was done in the ED and reveals a to be normal at 5.90. Therefore there is no clinical evidence that you have diabetes. Her blood pressure may have spiked secondary to withdrawal from medications clonazepam and tizanidine which were stopped 24 hours ago. Suggest presuming these dosages half doses for the next 12 that you're not so drowsy or lightheaded or prone to falling. The combination with ketamine cream may be causing her drowsiness and making her more prone to falling. The abrasions to right elbow and right knee should be cleansed daily with soap and water. Showering is okay. Then apply topical antibiotic such as bacitracin or Polysporin at least once daily to prevent secondary infection from occurring. An x-ray of the abdomen did confirm constipation throughout most of the colon. Therefore suggest using magnesium citrate or Citroma 8 ounces with 6 ounces of juice of choice tomorrow morning taken by mouth once. This usually starts to work in 1-3 hours and her bowels are usually move 3 or 4 times often ending and diarrhea. Suggest trying to increase your fiber in your diet by way of whole-grain cereals and breads and fruits and vegetables of course. Failing this she may want to consider MiraLAX powder 17 g once daily to prevent constipation from occurring. Constipation is a subtle side effect of current medications clonazepam and particularly tizanidine. - My Orders Last 24 Hours: My Active Orders 04/20/19 19:15 Abdomen 1V Flat [CR] Stat 04/20/19 20:22 EKG Documentation Completion [RC] STAT - Assessment/Plan Last 24 Hours: My Active Orders 04/20/19 19:15 Abdomen 1V Flat [CR] Stat 04/20/19 20:22 EKG Documentation Completion [RC] STAT
[2019-04-20] MEDS ORDERED: hydrALAZINE 20 MG/ML SDV IVPUSH ONE (19:54)
--- NOTE | 2019-04-20 20:27 | CT ---
Head CT Technique: Multiple axial sections through the brain were obtained. Intravenous contrast was not utilized. Comparison: Prior head CT study of 09/30/18. Findings: Ventricles along with basal cisterns and sulci over the convexities are within normal limits for the patient's age. No abnormal parenchymal densities are seen. No evidence of intracranial hemorrhage. No midline shift or mass effect is seen. Bone window settings were reviewed which shows no acute calvarial abnormality. Visualized paranasal sinuses and mastoid sinuses are clear. Impression: 1. Nothing acute is appreciated on noncontrast head CT exam. No appreciable change is seen from previous exam. Diagnostic code #1
[2019-04-20 21:00] LABS: HEMOGLOBIN A1C 5.9 % (4.50-6.20)
[2019-04-20] MEDS ORDERED: Magnesium Citrate Solution 296 ML Bottle PO ONE (21:28)
[2019-04-20] MEDS ORDERED: Magnesium Citrate Solution 296 ML Bottle ONE (21:29)
--- NOTE | 2019-04-21 07:34 | CR ---
Abdomen: Supine view of the abdomen was obtained. Comparison: No prior abdominal imaging is available. Mild increased stool is seen within the colon. Bowel gas pattern is otherwise unremarkable. No abnormal calcifications or soft tissue abnormality is seen. Bony structures are unremarkable. Impression: 1. Mild increased stool within the colon. 2. Supine abdominal x-ray is otherwise unremarkable. Diagnostic code #2
== END 2019-04-20 21:41 | disposition home or self-care (01) ==
LOC: JD.ED 18:51
DX: K59.01 Slow transit constipation (principal); I10 Essential (primary) hypertension; J45.909 Unspecified asthma, uncomplicated; E11.9 Type 2 diabetes mellitus without complications; F17.210 Nicotine dependence, cigarettes, uncomplicated; Z88.1 Allergy status to other antibiotic agents; Z88.0 Allergy status to penicillin
CPT/HCPCS: 36415; 70450; 74018; 80053; 80306; 80320; 81001; 82009; 83036; 83735; 85025; 86140; 93005; 96374; 96375; 99284; A9270; J0360; J1170; J1200; J2765; J7042; 93010; G0480

== ENCOUNTER 2019-06-20 17:46 | Emergency (ER) | payer MEDICAID ==
[2019-06-20] MEDS ORDERED: Sodium Chloride 0.9% 10 ML Syringe FLUSH PRN (18:00)
[2019-06-20] MEDS ORDERED: Ondansetron 4 MG/2 ML SDV IVPUSH ONE ×2 (18:00→20:37)
[2019-06-20] MEDS ORDERED: Sodium Chloride 0.9% 1,000 ML IV SCH (18:00)
[2019-06-20] MEDS ORDERED: HYDROmorphone 1 MG/ML Syringe IVPUSH ONE (18:01)
[2019-06-20] MEDS ORDERED: LORazepam 2 MG/ML SDV IVPUSH ONE (18:02)
[2019-06-20] MEDS ORDERED: Diatrizoate Meglumine/Diatrizoate Sodium 37% 120 ML Bottle PO ONE (18:18)
[2019-06-20] MEDS ORDERED: Iopamidol 612 MG/ML 100 ML Bottle IVPUSH ONE (18:18)
[2019-06-20] MEDS ORDERED: HYDROmorphone 0.5 MG/0.5 ML Syringe IVPUSH ONE ×2 (18:29→20:37)
[2019-06-20] MEDS ORDERED: Metoclopramide 10 MG/2 ML SDV IVPUSH ONE (19:02)
[2019-06-20] MEDS: Sodium Chloride 0.9% 10 ML Syringe FLUSH PRN ×2 (19:12→19:35)
--- NOTE | 2019-06-20 20:01 | CT ---
CT abdomen and pelvis Technique: Multiple axial sections were obtained from above the dome of the diaphragm inferiorly through the pubic symphysis. Intravenous and oral contrast was utilized. Findings: Diffuse bowel wall thickening is seen throughout the colon. Findings are compatible with a nonspecific colitis. Appendix is visualized and is normal in size. Visualized lung bases show nothing acute. Slight diminished density is noted within the interhemispheric fissure which is most likely due to small amount of incidental fat. No additional abnormality is appreciated within the liver. Spleen appears within normal limits. Adrenal glands show no nodule. Pancreas appears within normal limits. Gallbladder contains no calcified gallstones. Kidneys show symmetric contrast enhancement without hydronephrosis or mass. Aorta shows no aneurysm. No retroperitoneal adenopathy or mesenteric abnormalities are seen. Small amount of free fluid is noted within the pelvis. No pelvic mass or adenopathy is seen. Impression: 1. Diffuse bowel wall thickening throughout the colon compatible with nonspecific colitis. 2. Small amount of free fluid is seen within the pelvis most likely reactive from the colonic process. 3. No additional abnormality is seen on CT study of the abdomen and pelvis. Diagnostic code #3 This report was dictated in [place] Standard Time
[2019-06-20] MEDS ORDERED: Sodium Chloride 0.9% 1,000 ML IV ONE (20:14)
--- NOTE | 2019-06-20 20:16 | EDM.PDOC ---
ED HPI GENERAL MEDICAL PROBLEM - General Chief Complaint: Chest Pain Stated Complaint: [facility] Time Seen by Provider: 06/20/19 17:52 Source of Information: Reports: Patient, EMS History Limitations: Reports: No Limitations - History of Present Illness INITIAL COMMENTS - FREE TEXT/NARRATIVE: The patient presents by [facility] for upper abdominal pain, chest pain , nausea and vomiting. She says this started last night. She has not been able to keep anything down. She has chills but no fever. She has no diarrhea. She has no shortness of breath. She has no cough. She has no dysuria. Has not been around anyone who is sick and she has not eaten any bad food as far as she knows. Onset: Gradual Duration: Day(s): (Last night) Location: Reports: Chest, Abdomen Quality: Reports: Sharp Severity: Severe Improves with: Reports: None Worsens with: Reports: None Associated Symptoms: Reports: Chest Pain, Fever/Chills, Nausea/Vomiting. Denies : Cough, Headaches, Shortness of Breath Treatments SHANK TURNER: Reports: IV/IO, Other (see below) Other Treatments SHANK TURNER: zofran - Related Data Allergies Allergy/AdvReac Type Severity Reaction Status Date / Time amoxicillin [Amoxicillin] Allergy Hives Verified 06/20/19 17:55 Penicillins Allergy Hives Verified 06/20/19 17:55 Home Meds: Home Meds Ketamine Cream. 1 applic TRDERM BID 09/30/18 [History] ClonazePAM [KlonoPIN] 0.5 mg PO TID 04/20/19 [History] tiZANidine [Zanaflex] 4 mg PO TID 04/20/19 [History] Ciprofloxacin [Ciprofloxacin HCl] 500 mg PO BID #14 tab 06/20/19 [Rx] Hydrocodone/Acetaminophen [Hydrocodon-Acetaminophen 5-325] 1 - 2 each PO Q6HR PRN #20 tablet 06/20/19 [Rx] Ondansetron [Zofran ODT] 4 mg PO Q6H PRN #20 tab.dis 06/20/19 [Rx] metroNIDAZOLE [Flagyl] 500 mg PO Q8H #21 tab 06/20/19 [Rx] Past Medical History HEENT History: Reports: None Cardiovascular History: Reports: None, Other (See Below) Other Cardiovascular History: heart murmur as a baby Respiratory History: Reports: Asthma Gastrointestinal History: Reports: None Genitourinary History: Reports: None 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 TRANSFER 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 History: ovarian cysts, laprascopy Musculoskeletal History: Reports: None Neurological History: Reports: Migraines Psychiatric History: Reports: Anxiety, Depression Endocrine/Metabolic History: Reports: None, Diabetes, Type II Hematologic History: Reports: None Immunologic History: Reports: None Oncologic (Cancer) History: Reports: None Dermatologic History: Reports: None - Infectious Disease History Infectious Disease History: Reports: None - Past Surgical History HEENT Surgical History: Reports: Adenoidectomy, Myringotomy w Tube(s) Cardiovascular Surgical History: Reports: None GI Surgical History: Reports: None Female Surgical History: Reports: None Endocrine Surgical History: Reports: None Neurological Surgical History: Reports: None Musculoskeletal Surgical History: Reports: Other (See Below), Shoulder Surgery Oncologic Surgical History: Reports: None Dermatological Surgical History: Reports: None Social & Family History - Family History Family Medical History: Noncontributory - Tobacco Use Smoking Status *Q: Unknown Ever Smoked - Caffeine Use Caffeine Use: Reports: None - Living Situation & Occupation Living situation: Reports: Occupation: Unemployed ED ROS GENERAL - Review of Systems Review Of Systems: See Below Constitutional: Reports: Chills. Denies: Fever HEENT: Reports: No Symptoms Respiratory: Reports: No Symptoms Cardiovascular: Reports: Chest Pain Endocrine: Reports: No Symptoms GI/Abdominal: Reports: Abdominal Pain, Nausea, Vomiting. Denies: Diarrhea : Reports: No Symptoms Musculoskeletal: Reports: No Symptoms Skin: Reports: No Symptoms Neurological: Reports: No Symptoms ED EXAM, GENERAL - Physical Exam Exam: See Below Exam Limited By: No Limitations General Appearance: Moderate Distress Ears: Normal External Exam Nose: Normal Inspection Head: Atraumatic, Normocephalic Neck: Normal Inspection Respiratory/Chest: No Respiratory Distress, Lungs Clear, Normal Breath Sounds Cardiovascular: Regular Rate, Rhythm, No Edema, No Murmur GI/Abdominal: Soft, No Organomegaly, No Mass, Tender (Moderate generalized tenderness) Back Exam: Normal Inspection Extremities: Normal Inspection Neurological: Alert, Oriented, No Motor/Sensory Deficits EKG INTERPRETATION EKG Date: 06/20/19 Time: 18:13 Rhythm: NSR Rate (Beats/Min): 81 Sun: Normal P-Wave: Present QRS: Normal ST-T: Normal QT: Normal Course - Vital Signs Last Recorded V/S: Last Vital Signs Temp 98.4 F 06/20/19 17:52 Pulse 83 06/20/19 17:52 Resp 19 06/20/19 17:52 BP 143/93 H 06/20/19 17:52 Pulse Ox 100 06/20/19 17:52 - Orders/Labs/Meds Orders: Active Orders 24 hr Category Date Time Status Cardiac Monitoring [RC] . DIRECTED Care 06/20/19 18:00 Active EKG Documentation Completion [RC] STAT Care 06/20/19 18:00 Active Peripheral IV Care [RC] . DIRECTED Care 06/20/19 18:00 Active Chest 1V Frontal [CR] Stat Exams 06/20/19 18:01 Taken UA W/MICROSCOPIC [URIN] Stat Lab 06/20/19 18:00 Ordered Sodium Chloride 0.9% [Normal Saline] 1,000 ml Med 06/20/19 18:00 Active IV .BOLUS Sodium Chloride 0.9% [Saline Flush] Med 06/20/19 18:00 Active 10 ml FLUSH ASDIRECTED PRN Sodium Chloride 0.9% [Saline Flush] Med 06/20/19 18:18 Active 10 ml FLUSH ONETIME PRN ED Antiemetic Medication Reflex [OM.PC] Stat Oth 06/20/19 18:00 Ordered Peripheral IV Insertion Adult [OM.PC] Stat Oth 06/20/19 18:00 Ordered Medication Orders Al Hydroxide/Mg Hydroxide 30 (ml/ Lidocaine HCl 15 ml) 0 ml PO ONETIME ONE Stop: 06/20/19 21:23 Sodium Chloride (Normal Saline) 1,000 mls @ 1,000 mls/hr IV .BOLUS GILLIAN Last Admin: 06/20/19 18:08 Dose: 1,000 mls/hr Sodium Chloride (Saline Flush) 10 ml FLUSH ASDIRECTED PRN PRN Reason: Keep Vein Open Last Admin: 06/20/19 18:09 Dose: 10 ml Sodium Chloride (Saline Flush) 10 ml FLUSH ONETIME PRN PRN Reason: IV FLUSH Last Admin: 06/20/19 19:35 Dose: 10 ml Admin: 06/20/19 19:12 Dose: 10 ml Labs: Laboratory Tests 06/20/19 06/20/19 06/20/19 Range/Units 18:25 18:25 18:25 WBC 13.80 H (3.98-10.04) K/mm3 RBC 4.15 (3.98-5.22) M/mm3 Hgb 13.1 (11.2-15.7) gm/dl Hct 38.8 (34.1-44.9) % MCV 93.5 (79.4-94.8) fl MCH 31.6 (25.6-32.2) pg MCHC 33.8 (32.2-35.5) g/dl RDW Std Deviation 42.5 (36.4-46.3) fL Plt Count 313 D (182-369) K/mm3 MPV 10.4 (9.4-12.3) fl Neut % (Auto) 85.4 H (34.0-71.1) % Lymph % (Auto) 8.1 L (19.3-51.7) % Wake % (Auto) 6.2 (4.7-12.5) % Eos % (Auto) 0 L (0.7-5.8) Baso % (Auto) 0.0 L (0.1-1.2) % Neut # (Auto) 11.78 H (1.56-6.13) K/mm3 Lymph # (Auto) 1.12 L (1.18-3.74) K/mm3 Wake # (Auto) 0.86 H (0.24-0.36) K/mm3 Eos # (Auto) 0.00 L (0.04-0.36) K/mm3 Baso # (Auto) 0.00 L (0.01-0.08) K/mm3 Manual Slide Review Abnormal smear Sodium 139 (136-145) mEq/L Potassium 3.2 L D (3.5-5.1) mEq/L Chloride 100 (98-107) mEq/L Carbon Dioxide 20 L (21-32) mEq/L Anion Gap 22.2 H (5-15) BUN 15 (7-18) mg/dL Creatinine 1.4 H (0.55-1.02) mg/dL Est Cr Clr Drug Dosing 49.03 mL/min Estimated GFR (MDRD) 42 (>60) mL/min BUN/Creatinine Ratio 10.7 L (14-18) Glucose 157 H (74-106) mg/dL Calcium 9.7 (8.5-10.1) mg/dL Total Bilirubin 0.5 (0.2-1.0) mg/dL AST 25 (15-37) U/L ALT 37 (14-59) U/L Alkaline Phosphatase 82 (46-116) U/L Troponin I < 0.017 (0.00-0.056) ng/mL Total Protein 8.6 H (6.4-8.2) g/dl Albumin 4.4 (3.4-5.0) g/dl Globulin 4.2 gm/dL Albumin/Globulin Ratio 1.1 (1-2) Lipase 61 L (73-393) U/L HCG, Qual Negative (NEGATIVE) Meds: Medications Generic Name Dose Route Start Last Admin Trade Name Freq PRN Reason Stop Dose Admin Al Hydroxide/Mg Hydroxide 30 0 ml 06/20/19 21:22 ml/ Lidocaine HCl 15 ml PO 06/20/19 21:23 ONETIME ONE Sodium Chloride 1,000 mls @ 1,000 mls/hr 06/20/19 18:00 06/20/19 18:08 Normal Saline IV 1,000 mls/hr .BOLUS GILLIAN Administration Sodium Chloride 10 ml 06/20/19 18:00 06/20/19 18:09 Saline Flush FLUSH 10 ml ASDIRECTED PRN Administration Keep Vein Open Sodium Chloride 10 ml 06/20/19 18:18 06/20/19 19:35 Saline Flush FLUSH 10 ml ONETIME PRN Administration IV FLUSH Discontinued Medications Generic Name Dose Route Start Last Admin Trade Name Freq PRN Reason Stop Dose Admin Diatrizoate Meglum/Diatrizoate Sod 120 ml 06/20/19 18:18 06/20/19 19:35 Gastrografin 37% PO 06/20/19 18:19 90 ml ONETIME ONE Administration Famotidine 20 mg 06/20/19 21:22 Pepcid IVPUSH 06/20/19 21:23 ONETIME ONE Hydromorphone HCl 1 mg 06/20/19 18:01 06/20/19 18:09 Dilaudid IVPUSH 06/20/19 18:02 1 mg ONETIME ONE Administration Hydromorphone HCl 0.5 mg 06/20/19 18:29 06/20/19 19:11 Dilaudid IVPUSH 06/20/19 18:30 0.5 mg ONETIME ONE Administration Hydromorphone HCl 0.25 mg 06/20/19 20:37 06/20/19 20:48 Dilaudid IVPUSH 06/20/19 20:38 0.25 mg ONETIME ONE Administration Sodium Chloride 1,000 mls @ 1,000 mls/hr 06/20/19 20:14 06/20/19 20:48 Normal Saline IV 06/20/19 21:13 1,000 mls/hr ONETIME ONE Administration Iopamidol 100 ml 06/20/19 18:18 06/20/19 19:35 Isovue-300 (61%) IVPUSH 06/20/19 18:19 100 ml ONETIME ONE Administration Lorazepam 0.5 mg 06/20/19 18:02 06/20/19 18:09 Ativan IVPUSH 06/20/19 18:03 0.5 mg ONETIME ONE Administration Metoclopramide HCl 10 mg 06/20/19 19:02 06/20/19 19:11 Reglan IVPUSH 06/20/19 19:03 10 mg ONETIME ONE Administration Ondansetron HCl 4 mg 06/20/19 18:00 06/20/19 18:09 Zofran IVPUSH 06/20/19 18:01 4 mg ONETIME ONE Administration Ondansetron HCl 4 mg 06/20/19 20:37 06/20/19 20:48 Zofran IVPUSH 06/20/19 20:38 4 mg ONETIME ONE Administration - Re-Assessments/Exams Free Text/Narrative Re-Assessment/Exam: 06/20/19 20:22 I ordered an IV NS dilaudid 1mg IV, zofran 4mg IV, labs, UA, CXR, EKG, and CT of her abdomen and pelvis. Her EKG shows a NSR with no acute changes. Her CXR looks good. Her WBC was elevated at 13.8. Her K was low at 3.2. Her anion gap was elevated at 22.2. Her creatinine is elevated at 1.4. Her glucose is elevated at 157. Her troponin is negative. Her lipase is low at 61. Her HCG is negative. Her CT shows diffuse bowel wall thickening throughout the colon compatible with nonspecific colitis. Small amount of free fluid is seen within the pelvis most likely reactive from the colonic process. No additional abnormality is seen on CT study of the abdomen and pelvis. She had more pain so I gave her more dilaudid and reglan for nausea. 06/20/19 21:23 She had more heart burn so I ordered pepcid 20mg IV and GI cocktail. 06/20/19 21:24 Her dad says he got an E-mail that some salad he bought in [employer] may have E- coli. The patient cannot give us a stool sample here. I will get her on some flagyl, cipro, zofran and hydrocodone and have her bring back some stool studies. Departure - Departure Time of Disposition: 21:30 Disposition: Home, Self-Care 01 Condition: Good Clinical Impression: Atypical chest pain, Colitis Prescriptions: Hydrocodone/Acetaminophen [Hydrocodon-Acetaminophen 5-325] 1 - 2 each PO Q6HR PRN #20 tablet PRN Reason: Pain Ciprofloxacin [Ciprofloxacin HCl] 500 mg PO BID #14 tab metroNIDAZOLE [Flagyl] 500 mg PO Q8H #21 tab Ondansetron [Zofran ODT] 4 mg PO Q6H PRN #20 tab.dis PRN Reason: Nausea\vomiting Referrals: PCP,None [Primary Care Provider] - Ibis Alas [employer]GRAM[employer] [ED Midlevel Provider] - 1 Week Forms: ED Department Discharge Additional Instructions: Take the medicine as prescribed. Drink plenty of fluids. Please return a stool sample so we can test it. Please return if you are worse. - My Orders Last 24 Hours: My Active Orders 06/20/19 18:00 Cardiac Monitoring [RC] . DIRECTED EKG Documentation Completion [RC] STAT Peripheral IV Care [RC] . DIRECTED UA W/MICROSCOPIC [URIN] Stat Sodium Chloride 0.9% [Normal Saline] 1,000 ml IV .BOLUS Sodium Chloride 0.9% [Saline Flush] 10 ml FLUSH ASDIRECTED PRN ED Antiemetic Medication Reflex [OM.PC] Stat Peripheral IV Insertion Adult [OM.PC] Stat 06/20/19 18:01 Chest 1V Frontal [CR] Stat 06/20/19 18:18 Sodium Chloride 0.9% [Saline Flush] 10 ml FLUSH ONETIME PRN - Assessment/Plan Last 24 Hours: My Active Orders 06/20/19 18:00 Cardiac Monitoring [RC] . DIRECTED EKG Documentation Completion [RC] STAT Peripheral IV Care [RC] . DIRECTED UA W/MICROSCOPIC [URIN] Stat Sodium Chloride 0.9% [Normal Saline] 1,000 ml IV .BOLUS Sodium Chloride 0.9% [Saline Flush] 10 ml FLUSH ASDIRECTED PRN ED Antiemetic Medication Reflex [OM.PC] Stat Peripheral IV Insertion Adult [OM.PC] Stat 06/20/19 18:01 Chest 1V Frontal [CR] Stat 06/20/19 18:18 Sodium Chloride 0.9% [Saline Flush] 10 ml FLUSH ONETIME PRN
[2019-06-20] MEDS ORDERED: Alum Hydrox/Mag Hydrox/Simeth 30 ML, Lidocaine 2% 15 ML PO ONE ×2 (21:22)
[2019-06-20] MEDS ORDERED: Famotidine 20 MG/2 ML SDV IVPUSH ONE (21:22)
--- NOTE | 2019-06-23 09:43 | CR ---
Chest: Portable view of the chest was obtained. Comparison: Previous chest x-ray of 09/30/18. Heart size and mediastinum are within normal limits. Lungs are clear. Bony structures are grossly intact. Impression: 1. Nothing acute is appreciated on portable chest x-ray. Diagnostic code #1 This report was dictated in [place] Standard Time
== END 2019-06-20 22:04 | disposition home or self-care (01) ==
LOC: JD.ED 17:46
DX: K52.9 Noninfective gastroenteritis and colitis, unspecified (principal); R07.89 Other chest pain; E11.9 Type 2 diabetes mellitus without complications; Z88.0 Allergy status to penicillin
CPT/HCPCS: 36415; 71045; 74177; 80053; 83690; 84484; 84703; 85025; 87046; 87427; 93005; 96361; 96374; 96375; 96376; 99285; A9270; J1170; J2060; J2405; J2765; J3490; J7040; Q9963; Q9967; 93010; 99284; J7030

== ENCOUNTER 2019-06-21 13:03 | Emergency (ER) | payer MEDICAID ==
[2019-06-21] MEDS ORDERED: Sodium Chloride 0.9% 1,000 ML IV ONE ×2 (15:33→17:48)
[2019-06-21] MEDS ORDERED: Sodium Chloride 0.9% 10 ML Syringe FLUSH PRN (15:33)
[2019-06-21] MEDS ORDERED: Ondansetron 4 MG/2 ML SDV IVPUSH ONE (15:34)
[2019-06-21] MEDS ORDERED: LORazepam 2 MG/ML SDV IVPUSH ONE (15:41)
[2019-06-21] MEDS ORDERED: HYDROmorphone 1 MG/ML Syringe IVPUSH ONE (15:41)
--- NOTE | 2019-06-21 15:48 | EDM.PDOC ---
ED HPI GENERAL MEDICAL PROBLEM - General Chief Complaint: Gastrointestinal Problem Stated Complaint: VOMITING AND CRAMPING Time Seen by Provider: 06/21/19 15:33 Source of Information: Reports: Patient, Old Records, RN Notes Reviewed History Limitations: Reports: No Limitations - History of Present Illness INITIAL COMMENTS - FREE TEXT/NARRATIVE: Patient is a 38-year-old female who presents to the ED for evaluation of vomiting and abdominal cramping. Patient notes she was seen in this ER just yesterday, and had a full work-up with an abdomen pelvis CT and was found to have an infection in her abdomen. She was started on Cipro and Flagyl, Zofran. She states that she has had multiple episodes of vomiting, yesterday after leaving the ER and through last night, she states that she has not really been able to stop vomiting. She states she has been vomiting once every 20 minutes to an hour. She has not been able to keep any of the medications down, and also not keeping any sort of fluids down as well. She states she has a mild amount of diarrhea, but thinks that this is due to the contrast she was given yesterday while in the ER. She does not note any fevers or chills, but she states she feels very shaky, sweaty. Abdominal Pain Score (Numeric/FACES): 8 - Related Data Allergies Allergy/AdvReac Type Severity Reaction Status Date / Time amoxicillin [Amoxicillin] Allergy Hives Verified 06/20/19 17:55 Penicillins Allergy Hives Verified 06/20/19 17:55 Home Meds: Home Meds Ketamine Cream. 1 applic TRDERM BID 09/30/18 [History] ClonazePAM [KlonoPIN] 0.5 mg PO TID 04/20/19 [History] tiZANidine [Zanaflex] 4 mg PO TID 04/20/19 [History] Ciprofloxacin [Ciprofloxacin HCl] 500 mg PO BID #14 tab 06/20/19 [Rx] Ondansetron [Zofran ODT] 4 mg PO Q6H PRN #20 tab.dis 06/20/19 [Rx] Acetaminophen/oxyCODONE [Percocet 325-5 MG] 1 each PO Q6H PRN #20 tab 06/21/19 [ Rx] Clindamycin HCl 300 mg PO TID #21 capsule 11/30/19 [Rx] Past Medical History HEENT History: Reports: None Cardiovascular History: Reports: None, Other (See Below) Other Cardiovascular History: heart murmur as a baby Respiratory History: Reports: Asthma Gastrointestinal History: Reports: None Genitourinary History: Reports: None CADD INSTRUCTOR History: Reports: Other (See Below) Other CADD INSTRUCTOR History: ovarian cysts, laprascopy Musculoskeletal History: Reports: None Neurological History: Reports: Migraines Psychiatric History: Reports: Anxiety, Depression Endocrine/Metabolic History: Reports: None, Diabetes, Type II Hematologic History: Reports: None Immunologic History: Reports: None Oncologic (Cancer) History: Reports: None Dermatologic History: Reports: None - Infectious Disease History Infectious Disease History: Reports: None - Past Surgical History HEENT Surgical History: Reports: Adenoidectomy, Myringotomy w Tube(s) Cardiovascular Surgical History: Reports: None GI Surgical History: Reports: None Female Surgical History: Reports: None Endocrine Surgical History: Reports: None Neurological Surgical History: Reports: None Musculoskeletal Surgical History: Reports: Other (See Below), Shoulder Surgery Oncologic Surgical History: Reports: None Dermatological Surgical History: Reports: None Social & Family History - Family History Family Medical History: Noncontributory - Tobacco Use Smoking Status *Q: Current Every Day Smoker Years of Tobacco use: 20 Packs/Tins Daily: 0.5 - Caffeine Use Caffeine Use: Reports: Soda - Living Situation & Occupation Living situation: Reports: Occupation: Unemployed ED ROS GENERAL - Review of Systems Review Of Systems: See Below Constitutional: Denies: Fever, Chills HEENT: Reports: No Symptoms Respiratory: Reports: No Symptoms Cardiovascular: Reports: No Symptoms Endocrine: Reports: No Symptoms GI/Abdominal: Reports: Abdominal Pain (diffuse, generalized), Diarrhea (1 episode this AM), Nausea, Vomiting : Reports: No Symptoms Musculoskeletal: Reports: No Symptoms Skin: Reports: No Symptoms Neurological: Reports: No Symptoms Psychiatric: Reports: No Symptoms Hematologic/Lymphatic: Reports: No Symptoms Immunologic: Reports: No Symptoms ED EXAM, GI/ABD - Physical Exam Exam: See Below Exam Limited By: No Limitations General Appearance: Alert, WD/WN, Mild Distress (pt is bent over at bedside, and is actively vomiting), Active Emesis Eyes: Bilateral: Normal Appearance Throat/Mouth: Normal Inspection, Normal Lips, Normal Teeth, Normal Gums, Normal Oropharynx, Normal Voice, No Airway Compromise Head: Atraumatic, Normocephalic Neck: Normal Inspection Respiratory/Chest: No Respiratory Distress, Lungs Clear, Normal Breath Sounds, No Accessory Muscle Use, Chest Non-Tender Cardiovascular: Normal Peripheral Pulses, Regular Rate, Rhythm, No Murmur GI/Abdominal Exam: Normal Bowel Sounds, Soft, No Distention, No Mass, Tender ( diffuse generalized tenderness) Extremities: Normal Inspection, Normal Capillary Refill Neurological: Alert, Oriented, Normal Cognition, No Motor/Sensory Deficits Psychiatric: Normal Affect, Normal Mood Skin Exam: Warm, Dry, Intact, Normal Color, No Rash Course - Vital Signs Last Recorded V/S: Last Vital Signs Temp 98.3 F 06/21/19 13:17 Pulse 93 06/21/19 13:17 Resp 16 06/21/19 13:17 BP 158/95 H 06/21/19 13:17 Pulse Ox 100 06/21/19 13:17 - Orders/Labs/Meds Orders: Active Orders 24 hr Category Date Time Status Communication Order [RC] ASDIRECTED Care 06/21/19 18:29 Active Peripheral IV Care [RC] . DIRECTED Care 06/21/19 15:34 Active Sodium Chloride 0.9% [Saline Flush] Med 06/21/19 15:33 Active 10 ml FLUSH ASDIRECTED PRN Peripheral IV Insertion Adult [OM.PC] Stat Oth 06/21/19 15:33 Ordered Medication Orders Sodium Chloride (Saline Flush) 10 ml FLUSH ASDIRECTED PRN PRN Reason: Keep Vein Open Last Admin: 06/21/19 16:30 Dose: 10 ml Labs: Laboratory Tests 06/21/19 06/21/19 Range/Units 16:25 16:25 WBC 12.53 H (3.98-10.04) K/mm3 RBC 4.09 (3.98-5.22) M/mm3 Hgb 13.0 (11.2-15.7) gm/dl Hct 38.8 (34.1-44.9) % MCV 94.9 H (79.4-94.8) fl MCH 31.8 (25.6-32.2) pg MCHC 33.5 (32.2-35.5) g/dl RDW Std Deviation 44.0 (36.4-46.3) fL Plt Count 305 (182-369) K/mm3 MPV 9.8 (9.4-12.3) fl Neutrophils % (Manual) 82 H (40-60) % Band Neutrophils % 1 (0-10) % Lymphocytes % (Manual) 13 L (20-40) % Atypical Lymphs % 0 % Monocytes % (Manual) 4 (2-10) % Eosinophils % (Manual) 0 L (0.7-5.8) % Basophils % (Manual) 0 L (0.1-1.2) Platelet Estimate Adequate RBC Morph Comment Normal Sodium 133 L (136-145) mEq/L Potassium 3.2 L (3.5-5.1) mEq/L Chloride 97 L (98-107) mEq/L Carbon Dioxide 27 (21-32) mEq/L Anion Gap 12.2 (5-15) BUN 9 (7-18) mg/dL Creatinine 0.9 (0.55-1.02) mg/dL Est Cr Clr Drug Dosing 82.42 mL/min Estimated GFR (MDRD) > 60 (>60) mL/min BUN/Creatinine Ratio 10.0 L (14-18) Glucose 115 H (74-106) mg/dL Calcium 8.7 (8.5-10.1) mg/dL Total Bilirubin 0.4 (0.2-1.0) mg/dL AST 31 (15-37) U/L ALT 42 (14-59) U/L Alkaline Phosphatase 75 (46-116) U/L Total Protein 8.1 (6.4-8.2) g/dl Albumin 4.2 (3.4-5.0) g/dl Globulin 3.9 gm/dL Albumin/Globulin Ratio 1.1 (1-2) Meds: Medications Generic Name Dose Route Start Last Admin Trade Name Freq PRN Reason Stop Dose Admin Sodium Chloride 10 ml 06/21/19 15:33 06/21/19 16:30 Saline Flush FLUSH 10 ml ASDIRECTED PRN Administration Keep Vein Open Discontinued Medications Generic Name Dose Route Start Last Admin Trade Name Freq PRN Reason Stop Dose Admin Al Hydroxide/Mg Hydroxide 30 0 ml 06/21/19 17:01 06/21/19 17:14 ml/ Lidocaine HCl 15 ml PO 06/21/19 17:02 45 ml ONETIME ONE Administration Hydromorphone HCl 1 mg 06/21/19 15:41 11/30/19 16:26 Dilaudid IVPUSH 06/21/19 15:42 1 mg ONETIME ONE Administration Hydromorphone HCl 0.5 mg 06/21/19 17:01 06/21/19 17:12 Dilaudid IVPUSH 06/21/19 17:02 0.5 mg ONETIME ONE Administration Hydromorphone HCl 0.5 mg 06/21/19 19:30 Dilaudid IVPUSH 06/21/19 19:31 ONETIME ONE Sodium Chloride 1,000 mls @ 999 mls/hr 06/21/19 15:33 06/21/19 16:29 Normal Saline IV 06/21/19 16:33 999 mls/hr ONETIME ONE Administration Sodium Chloride 1,000 mls @ 999 mls/hr 06/21/19 17:48 06/21/19 18:11 Normal Saline IV 06/21/19 18:48 999 mls/hr ONETIME ONE Administration Lorazepam 0.5 mg 06/21/19 15:41 06/21/19 16:27 Ativan IVPUSH 06/21/19 15:42 0.5 mg ONETIME ONE Administration Ondansetron HCl 4 mg 06/21/19 15:34 06/21/19 16:24 Zofran IVPUSH 06/21/19 15:35 4 mg ONETIME ONE Administration - Re-Assessments/Exams Free Text/Narrative Re-Assessment/Exam: 06/21/19 15:51 Patient presents to the ED for evaluation of nausea and vomiting,. She notes that her symptoms have not really greatly improved at all since yesterday, and she has not been able keep anything down for foods or fluids. Did order IV with some IV fluids, 4 mg Zofran, 1 mg Dilaudid, 0.5 mg Ativan, and a repeat CBC and CMP for initial management and evaluation. Upon review of the patient' s labs yesterday, she did have a markedly elevated anion gap at 22, she likely could have benefited from observation overnight with IV fluid resuscitation. Depending on how the patient is doing after initial management plan, again she may benefit from a short hospitalization for IV fluids and management. 06/21/19 18:53 Patient was reassessed at bedside, and she states she is feeling better than when she was when she came in. Her labs actually look better today than they do yesterday anion gap not elevated, sodium is mildly low at 132, potassium was also mildly low at 3.2. I am hopeful that the IV fluids should help, and she is able to tolerate oral fluids, and will try to eat some parminder crackers as she states she is hungry. Hopeful that she will get to be discharged home with further conservative management. Dr. Lopez recommends a change in medications , stop Flagyl and start clindamycin 300 mg 3 times daily, as he thinks the Flagyl might be causing more nausea and vomiting. Patient notes that the hydrocodone she was given yesterday was not really taking the pain away as well. We will have her stop taking these and switch to oxycodone for pain management. Patient states that she does have heartburn-like symptoms at home, and takes ranitidine when needed. I told her to start taking omeprazole OTC for further heartburn symptoms. She is understanding of this. Departure - Departure Time of Disposition: 19:08 Disposition: Home, Self-Care 01 Condition: Fair Clinical Impression: Colitis, Abdominal pain Adverse reaction to drug Qualifiers: Encounter type: initial encounter Qualified Code(s): T50.905A - Adverse effect of unspecified drugs, medicaments and biological substances, initial encounter - Discharge Information *PRESCRIPTION DRUG MONITORING PROGRAM REVIEWED*: Yes *COPY OF PRESCRIPTION DRUG MONITORING REPORT IN PATIENT BARB: No Prescriptions: Acetaminophen/oxyCODONE [Percocet 325-5 MG] 1 each PO Q6H PRN #20 tab PRN Reason: Pain Clindamycin HCl 300 mg PO TID #21 capsule Instructions: Nausea and Vomiting, Adult, [id number] Referrals: Nicole Pacheco MD [Primary Care Provider] - Forms: ED Department Discharge Additional Instructions: You have been evaluated in the ED for nausea/vomiting/diarrhea. Your workup in the ER yesterday demonstrated that you were suffering from colitis. You have received IV fluid in the ED to help with the dehydration from the vomiting and diarrhea. You did also receive IV pain medications in the ER, this did seem to help relieve your symptoms. Over the next 24-48 hours please try to limit diet to clear liquids and advance as tolerated to a bland diet to alleviate symptoms of nausea/vomiting/diarrhea. Recommend that you start taking a probiotic as well to help regulate normal gut maria fernanda. You can ask for one at the pharmacy, they will recommend one that should suit your needs. Please use the Zofran every 8 hours as needed for nausea. Please take the antibiotics already prescribed as previously directed, the Flagyl (metronidazole ) will need to be stopped as this may be contributing to your nausea and vomiting. This will be replaced with clindamycin 300 mg 3 times daily for a week. This antibiotic can cause some diarrhea at times, recommend taking a probiotic if you are not already doing so. Your pain medication has been changed to oxycodone/acetaminophen 5/325 please take 1 tab every 6 hours as needed for pain relief. Recommend you take the already prescribed hydrocodone back to the pharmacy to have this destroyed when you are feeling better. Recommend that you stop taking Ranitidine (Zantac) and start taking over-the- counter omeprazole (Prilosec), as directed on the box for further heartburn/ GERD symptoms. This is a medication that stops the acid pumps in the stomach, which sometimes can be overactive and lead to increased acid production causing heartburn, this medication may take up to 72 hours to take full effect. Please return to the ED if your symptoms should change or worsen. - My Orders Last 24 Hours: My Active Orders 06/21/19 15:33 Sodium Chloride 0.9% [Saline Flush] 10 ml FLUSH ASDIRECTED PRN Peripheral IV Insertion Adult [OM.PC] Stat 06/21/19 15:34 Peripheral IV Care [RC] . DIRECTED 06/21/19 18:29 Communication Order [RC] ASDIRECTED - Assessment/Plan Last 24 Hours: My Active Orders 06/21/19 15:33 Sodium Chloride 0.9% [Saline Flush] 10 ml FLUSH ASDIRECTED PRN Peripheral IV Insertion Adult [OM.PC] Stat 06/21/19 15:34 Peripheral IV Care [RC] . DIRECTED 06/21/19 18:29 Communication Order [RC] ASDIRECTED
[2019-06-21] MEDS ORDERED: HYDROmorphone 0.5 MG/0.5 ML Syringe IVPUSH ONE ×2 (17:01→19:30)
[2019-06-21] MEDS ORDERED: Alum Hydrox/Mag Hydrox/Simeth 30 ML, Lidocaine 2% 15 ML PO ONE ×2 (17:01)
[2019-06-21] MEDS ORDERED: Metoclopramide 10 MG/2 ML SDV IVPUSH ONE (19:50)
== END 2019-06-21 20:25 | disposition home or self-care (01) ==
LOC: JD.ED 13:03
DX: K52.9 Noninfective gastroenteritis and colitis, unspecified (principal); R11.10 Vomiting, unspecified; T36.8X5A Adverse effect of other systemic antibiotics, initial encounter; T37.3X5A Adverse effect of other antiprotozoal drugs, initial encounter; T45.0X5A Adverse effect of antiallergic and antiemetic drugs, initial encounter; F41.9 Anxiety disorder, unspecified; F32.9 Major depressive disorder, single episode, unspecified; J45.909 Unspecified asthma, uncomplicated; F17.210 Nicotine dependence, cigarettes, uncomplicated; Z88.0 Allergy status to penicillin; Z79.899 Other long term (current) drug therapy
CPT/HCPCS: 36415; 80053; 85007; 85027; 96361; 96374; 96375; 96376; 99284; A9270; J1170; J2060; J2405; J2765; J7040; J7030

== ENCOUNTER 2019-07-05 20:07 | Emergency (ER) | payer MEDICAID ==
--- NOTE | 2019-07-05 20:23 | EDM.PDOC ---
ED HPI GENERAL MEDICAL PROBLEM - General Chief Complaint: Abdominal Pain Stated Complaint: ABDOMINAL PAIN Time Seen by Provider: 07/05/19 20:20 - History of Present Illness INITIAL COMMENTS - FREE TEXT/NARRATIVE: 39-year-old female returns emergency room with worsening abdominal pain. Patient was treated for colitis with Cipro and clindamycin for a week. Several days after stopping the antibiotics or diarrhea started to come back and her pain gradually got worse.. He requests oxycodone Zofran and Ativan thinking this might help. She's not had any fevers or chills her anxiety is getting worse as she is out of her anxiety medication. He has occasional nausea and vomiting but mostly crampy abdominal discomfort Abdominal Pain Score (Numeric/FACES): 7 - Related Data Allergies Allergy/AdvReac Type Severity Reaction Status Date / Time amoxicillin [Amoxicillin] Allergy Hives Verified 07/05/19 20:15 Penicillins Allergy Hives Verified 07/05/19 20:15 Home Meds: Home Meds Ketamine Cream. 1 applic TRDERM BID 09/30/18 [History] ClonazePAM [KlonoPIN] 0.5 mg PO TID 04/20/19 [History] tiZANidine [Zanaflex] 4 mg PO TID 04/20/19 [History] Ciprofloxacin HCl [Cipro] 500 mg PO Q12H #14 tablet 07/05/19 [Rx] Clindamycin HCl 300 mg PO Q8H #21 capsule 07/05/19 [Rx] LORazepam [Ativan] 1 mg PO Q12H #3 tablet 07/05/19 [Rx] Ondansetron [Zofran ODT] 4 mg PO Q6H PRN #10 tab.dis 07/06/19 [Rx] Past Medical History HEENT History: Reports: None Cardiovascular History: Reports: None, Other (See Below) Other Cardiovascular History: heart murmur as a baby Respiratory History: Reports: Asthma Gastrointestinal History: Reports: None Genitourinary History: Reports: None [employer] History: Reports: Other (See Below) Other [employer] History: ovarian cysts, laprascopy Musculoskeletal History: Reports: None Neurological History: Reports: Migraines Psychiatric History: Reports: Anxiety, Depression Endocrine/Metabolic History: Reports: None, Diabetes, Type II Hematologic History: Reports: None Immunologic History: Reports: None Oncologic (Cancer) History: Reports: None Dermatologic History: Reports: None - Infectious Disease History Infectious Disease History: Reports: None - Past Surgical History HEENT Surgical History: Reports: Adenoidectomy, Myringotomy w Tube(s) Cardiovascular Surgical History: Reports: None GI Surgical History: Reports: None Female Surgical History: Reports: None Endocrine Surgical History: Reports: None Neurological Surgical History: Reports: None Musculoskeletal Surgical History: Reports: Other (See Below), Shoulder Surgery Oncologic Surgical History: Reports: None Dermatological Surgical History: Reports: None Social & Family History - Family History Family Medical History: Noncontributory - Tobacco Use Smoking Status *Q: Never Smoker - Caffeine Use Caffeine Use: Reports: Soda - Recreational Drug Use Recreational Drug Use: No - Living Situation & Occupation Living situation: Reports: Occupation: Unemployed ED ROS GENERAL - Review of Systems Review Of Systems: See Below Constitutional: Denies: Fever, Chills HEENT: Reports: No Symptoms Respiratory: Reports: No Symptoms Cardiovascular: Reports: No Symptoms GI/Abdominal: Reports: Abdominal Pain, Diarrhea, Nausea, Vomiting : Reports: No Symptoms Musculoskeletal: Reports: No Symptoms Skin: Reports: No Symptoms Neurological: Reports: No Symptoms Psychiatric: Reports: No Symptoms Hematologic/Lymphatic: Reports: No Symptoms Immunologic: Reports: No Symptoms ED EXAM, GI/ABD - Physical Exam Exam: See Below Exam Limited By: No Limitations General Appearance: Alert, Mild Distress (From her anxiety) Neck: Normal Inspection, Supple, Non-Tender, Full Range of Motion. No: Lymphadenopathy (L), Lymphadenopathy (R) Respiratory/Chest: No Respiratory Distress, Lungs Clear, Normal Breath Sounds Cardiovascular: Regular Rate, Rhythm, No Edema, No Murmur GI/Abdominal Exam: Normal Bowel Sounds, Soft, Other (Diffuse discomfort worse in the right lower quadrant) Back Exam: Normal Inspection. No: CVA Tenderness (L), CVA Tenderness (R) Course - Vital Signs Last Recorded V/S: Last Vital Signs Temp 36.9 C 07/05/19 20:15 Pulse 112 H 07/05/19 20:15 Resp 20 07/05/19 20:15 BP 177/106 H 07/05/19 20:15 Pulse Ox 100 07/05/19 20:15 - Orders/Labs/Meds Labs: Laboratory Tests 12/14/19 12/14/19 12/14/19 Range/Units 20:45 20:45 20:56 WBC 12.70 H (3.98-10.04) K/mm3 RBC 4.49 (3.98-5.22) M/mm3 Hgb 14.0 (11.2-15.7) gm/dl Hct 42.4 (34.1-44.9) % MCV 94.4 (79.4-94.8) fl MCH 31.2 (25.6-32.2) pg MCHC 33.0 (32.2-35.5) g/dl RDW Std Deviation 44.1 (36.4-46.3) fL Plt Count 360 (182-369) K/mm3 MPV 9.9 (9.4-12.3) fl Neutrophils % (Manual) 66 H (40-60) % Band Neutrophils % 1 (0-10) % Lymphocytes % (Manual) 25 (20-40) % Atypical Lymphs % 4 % Monocytes % (Manual) 4 (2-10) % Eosinophils % (Manual) 0 L (0.7-5.8) % Basophils % (Manual) 0 L (0.1-1.2) Platelet Estimate Adequate RBC Morph Comment Normal Sodium 136 (136-145) mEq/L Potassium 3.4 L (3.5-5.1) mEq/L Chloride 99 (98-107) mEq/L Carbon Dioxide 21 (21-32) mEq/L Anion Gap 19.4 H (5-15) BUN 10 (7-18) mg/dL Creatinine 1.1 H (0.55-1.02) mg/dL Est Cr Clr Drug Dosing 66.77 mL/min Estimated GFR (MDRD) 55 (>60) mL/min BUN/Creatinine Ratio 9.1 L (14-18) Glucose 104 (74-106) mg/dL Calcium 9.8 (8.5-10.1) mg/dL Total Bilirubin 0.4 (0.2-1.0) mg/dL AST 41 H (15-37) U/L ALT 54 (14-59) U/L Alkaline Phosphatase 97 (46-116) U/L C-Reactive Protein 0.2 (<1.0) mg/dL Total Protein 9.1 H (6.4-8.2) g/dl Albumin 4.7 (3.4-5.0) g/dl Globulin 4.4 gm/dL Albumin/Globulin Ratio 1.1 (1-2) Lipase 88 (73-393) U/L Urine Color Yellow (Yellow) Urine Appearance Clear (Clear) Urine pH 7.5 (5.0-8.0) Ur Specific [place] 1.015 (1.005-1.030) Urine Protein Negative (Negative) Urine Glucose (UA) Negative (Negative) Urine Ketones Negative (Negative) Urine Occult Blood Negative (Negative) Urine Nitrite Negative (Negative) Urine Bilirubin Negative (Negative) Urine Urobilinogen 0.2 (0.2-1.0) Ur Leukocyte Esterase Negative (Negative) Urine RBC 0-5 (0-5) /hpf Urine WBC 0-5 (0-5) /hpf Ur Squamous Epith Cells 0-5 (0-5) /hpf Urine Bacteria Occasional (FEW) /hpf Urine Mucus Not seen (FEW) /hpf Urine HCG, Qual (NEGATIVE) Urine Opiates Screen (PFHWXT=503) Ur Buprenorphine Scrn (CUTOFF=10) Ur Oxycodone Screen (UYN8UI=165) Urine Methadone Screen (ZWSSJK=228) Ur Propoxyphene Screen (TGCEZM=352) Ur Barbiturates Screen (NRBDXZ=524) Ur Tricyclics Screen (ZSRCWZ=521) Ur Phencyclidine Scrn (CUTOFF=25) Ur Amphetamine Screen (HLAIEX=281) U Methamphetamines Scrn (DWHMMH=436) U Benzodiazepines Scrn (DHSNJA=200) U Cocaine Metab Screen (UXRKTN=439) U Marijuana (THC) Screen (CUTOFF=50) 07/05/19 07/05/19 Range/Units 20:56 20:56 WBC (3.98-10.04) K/mm3 RBC (3.98-5.22) M/mm3 Hgb (11.2-15.7) gm/dl Hct (34.1-44.9) % MCV (79.4-94.8) fl MCH (25.6-32.2) pg MCHC (32.2-35.5) g/dl RDW Std Deviation (36.4-46.3) fL Plt Count (182-369) K/mm3 MPV (9.4-12.3) fl Neutrophils % (Manual) (40-60) % Band Neutrophils % (0-10) % Lymphocytes % (Manual) (20-40) % Atypical Lymphs % % Monocytes % (Manual) (2-10) % Eosinophils % (Manual) (0.7-5.8) % Basophils % (Manual) (0.1-1.2) Platelet Estimate RBC Morph Comment Sodium (136-145) mEq/L Potassium (3.5-5.1) mEq/L Chloride (98-107) mEq/L Carbon Dioxide (21-32) mEq/L Anion Gap (5-15) BUN (7-18) mg/dL Creatinine (0.55-1.02) mg/dL Est Cr Clr Drug Dosing mL/min Estimated GFR (MDRD) (>60) mL/min BUN/Creatinine Ratio (14-18) Glucose (74-106) mg/dL Calcium (8.5-10.1) mg/dL Total Bilirubin (0.2-1.0) mg/dL AST (15-37) U/L ALT (14-59) U/L Alkaline Phosphatase (46-116) U/L C-Reactive Protein (<1.0) mg/dL Total Protein (6.4-8.2) g/dl Albumin (3.4-5.0) g/dl Globulin gm/dL Albumin/Globulin Ratio (1-2) Lipase (73-393) U/L Urine Color (Yellow) Urine Appearance (Clear) Urine pH (5.0-8.0) Ur Specific [place] (1.005-1.030) Urine Protein (Negative) Urine Glucose (UA) (Negative) Urine Ketones (Negative) Urine Occult Blood (Negative) Urine Nitrite (Negative) Urine Bilirubin (Negative) Urine Urobilinogen (0.2-1.0) Ur Leukocyte Esterase (Negative) Urine RBC (0-5) /hpf Urine WBC (0-5) /hpf Ur Squamous Epith Cells (0-5) /hpf Urine Bacteria (FEW) /hpf Urine Mucus (FEW) /hpf Urine HCG, Qual Negative (NEGATIVE) Urine Opiates Screen Negative (BDVYNS=818) Ur Buprenorphine Scrn Negative (CUTOFF=10) Ur Oxycodone Screen Negative (DAL2NL=989) Urine Methadone Screen Negative (WNSDHQ=225) Ur Propoxyphene Screen Negative (GNQKCP=415) Ur Barbiturates Screen Negative (IJFYAA=103) Ur Tricyclics Screen Negative (VBUWWZ=036) Ur Phencyclidine Scrn Negative (CUTOFF=25) Ur Amphetamine Screen Negative (IKFYLI=583) U Methamphetamines Scrn Negative (OSXYED=787) U Benzodiazepines Scrn Negative (EQRJVZ=226) U Cocaine Metab Screen Negative (EBEJEV=439) U Marijuana (THC) Screen Negative (CUTOFF=50) Meds: Medications Discontinued Medications Generic Name Dose Route Start Last Admin Trade Name Aster PRN Reason Stop Dose Admin Al Hydroxide/Mg Hydroxide 30 0 ml 07/05/19 22:37 07/05/19 22:41 ml/ Lidocaine HCl 15 ml PO 07/05/19 22:38 45 ml ONETIME ONE Administration Lactated Ringer's 1,000 mls @ 999 mls/hr 07/05/19 20:57 07/05/19 21:05 Ringers, Lactated IV 07/05/19 21:57 999 mls/hr .BOLUS ONE Administration Lorazepam 1 mg 07/05/19 22:09 07/05/19 22:15 Ativan IVPUSH 07/05/19 22:10 1 mg ONETIME ONE Administration Ondansetron HCl 4 mg 07/05/19 20:57 07/05/19 21:05 Zofran IVPUSH 07/05/19 20:58 4 mg ONETIME ONE Administration Oxycodone/Acetaminophen 4 tab 07/05/19 23:37 07/05/19 23:49 Percocet 325-5 Mg PO 07/05/19 23:38 4 tab ONETIME ONE Administration - Re-Assessments/Exams Free Text/Narrative Re-Assessment/Exam: 07/05/19 23:31 Labs look all right her white count is up but it could be because she was worked up she doesn't have significant bandemia associated with this. She was treated for a colitis at the end of last month it looks like this is returned I gave her the option of repeat checking a CT however she would just assume not do this I will put on another week's worth of the antibiotics she did not call tolerate the Flagyl will use clindamycin. She noticed her symptoms returning shortly after she stopped the antibiotics. We will treat this for another week I will give her a few pain medications and a few Ativan and she has a refill for her Klonopin on Sunday. She should not need pain medication beyond a day; 4 from the emergency room give her prescription for 3 Ativan that she can get her Klonopin refilled on Sunday give her week's worth of Cipro and clindamycin and a couple Zofran Departure - Departure Time of Disposition: 23:38 Disposition: Home, Self-Care 01 Clinical Impression: Colitis, Anxiety - Discharge Information Prescriptions: Ciprofloxacin HCl [Cipro] 500 mg PO Q12H #14 tablet Clindamycin HCl 300 mg PO Q8H #21 capsule LORazepam [Ativan] 1 mg PO Q12H #3 tablet Ondansetron [Zofran ODT] 4 mg PO Q6H PRN #10 tab.dis PRN Reason: Abdominal Pain Referrals: Nicole Pacheco MD [Primary Care Provider] - Forms: ED Department Discharge Additional Instructions: Return to emergency room if any questions problems or worsening symptoms. You will be restarted on antibiotics for treatment of your colitis and see if this helps. You will also need a outpatient stool sample brought back into the hospital. Technique the antibiotics as directed use the Ativan one twice daily for anxiety the refill your Klonopin on Sunday. He should not need pain pills very long once the antibiotics start working, So we'll send you home with a few take one every 6 hours. Uses Zofran as needed for nausea. Follow-up with Dr. Pacheco on Sunday. You have not taking your tizanidine, do not restart while taking the cioprofloxin. Sepsis Event Note - Evaluation Sepsis Screening Result: No Definite Risk - Focused Exam Vital Signs: Vital Signs Temp Pulse Resp BP Pulse Ox 07/05/19 20:15 36.9 C 112 H 20 177/106 H 100 Date Exam was Performed: 07/05/19 Time Exam was Performed: 23:56
[2019-07-05] MEDS ORDERED: Ondansetron 4 MG/2 ML SDV IVPUSH ONE (20:57)
[2019-07-05] MEDS ORDERED: Lactated Ringers 1,000 ML IV ONE (20:57)
[2019-07-05] MEDS ORDERED: LORazepam 2 MG/ML SDV IVPUSH ONE (22:09)
[2019-07-05] MEDS ORDERED: Alum Hydrox/Mag Hydrox/Simeth 30 ML, Lidocaine 2% 15 ML PO ONE ×2 (22:37)
[2019-07-05] MEDS ORDERED: Acetaminophen/oxyCODONE 325-5 MG Tab PO ONE (23:37)
== END 2019-07-06 00:06 | disposition home or self-care (01) ==
LOC: JD.ED 20:07
DX: K52.9 Noninfective gastroenteritis and colitis, unspecified (principal); F41.9 Anxiety disorder, unspecified; F32.9 Major depressive disorder, single episode, unspecified; E11.9 Type 2 diabetes mellitus without complications; Z88.0 Allergy status to penicillin; Z79.899 Other long term (current) drug therapy
CPT/HCPCS: 36415; 80053; 80306; 81001; 81025; 83690; 85007; 85027; 86140; 96361; 96374; 96375; 99284; A9270; J2060; J2405; J7120

== ENCOUNTER 2019-07-07 13:48 | Emergency (ER) | payer MEDICAID ==
[2019-07-07] MEDS ORDERED: LORazepam 2 MG/ML SDV IM ONE ×2 (13:58→18:03)
[2019-07-07] MEDS ORDERED: Metoclopramide 10 MG/2 ML SDV IVPUSH ONE (14:21)
[2019-07-07] MEDS ORDERED: LORazepam 2 MG/ML SDV IVPUSH ONE ×2 (14:21→18:29)
[2019-07-07] MEDS ORDERED: Hyoscyamine 0.125 MG Tab.SL SL ONE (14:21)
[2019-07-07] MEDS ORDERED: Aluminum Hydroxide/Magnesium Hydroxide/Simethicone Susp 30 ML Cup PO ONE (14:22)
[2019-07-07] MEDS ORDERED: Sucralfate Suspension 1 GM/10 ML Cup PO ONE (14:24)
[2019-07-07] MEDS ORDERED: Pantoprazole 40 MG Vial IVPUSH ONE (14:25)
--- NOTE | 2019-07-07 14:28 | EDM.PDOC ---
ED HPI GENERAL MEDICAL PROBLEM - General Chief Complaint: Abdominal Pain Stated Complaint: [facility] Time Seen by Provider: 07/07/19 13:51 Source of Information: Reports: Patient, Old Records (previous visits 07/05, , and 06/21), RN Notes Reviewed History Limitations: Reports: No Limitations - History of Present Illness INITIAL COMMENTS - FREE TEXT/NARRATIVE: Patient is a 39-year-old female who is brought to the ED by [facility] for evaluation of ongoing abdominal pain with associated nausea and vomiting. The patient states that she was seen here 2 days ago, was given some medications for her heartburn, had her labs rechecked, and had her nausea treated. She was given a few tablets of Zofran and some pain meds and a continuation of Cipro and clindamycin for home use, but states this did not really seem to be helping much at all. Everything seemed to have worsened yesterday and into today, now she has diffuse abdominal pain, her sides hurt, her diaphragms hurt, she states she has been vomiting several times, and now she is only vomiting up bile with flecks of blood in it. She also complains of some diarrhea. She did get 1 dose of Zofran in the ambulance. Patient states she has not been able to keep much for fluids or food down. She notes she is a smoker, she smokes 1/2 to 1 pack/day cigarettes for several years, she rarely uses alcohol, but denies any sort of drug use. She notes that her abdomen is kind of diffuse abdominal crampy discomfort. There is no one specific area that hurts worse than the rest. 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 1 applic TRDERM ASDIRECTED 09/30/18 [History] ClonazePAM [KlonoPIN] 0.5 mg PO TID 04/20/19 [History] tiZANidine [Zanaflex] 4 mg PO TID 04/20/19 [History] Ciprofloxacin HCl [Cipro] 500 mg PO Q12H #14 tablet 07/05/19 [Rx] Clindamycin HCl 300 mg PO Q8H #21 capsule 07/05/19 [Rx] Ondansetron [Zofran ODT] 4 mg PO Q6H PRN #10 tab.dis 07/06/19 [Rx] Past Medical History Cardiovascular History: Reports: Other (See Below) Other Cardiovascular History: heart murmur as a baby Respiratory History: Reports: Asthma Gastrointestinal History: Reports: Other (See Below) Other Gastrointestinal History: nonspecific colitis 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 History: ovarian cysts, laprascopy Neurological History: Reports: Migraines Psychiatric History: Reports: Anxiety, Depression Endocrine/Metabolic History: Reports: Diabetes, Type II - Past Surgical History HEENT Surgical History: Reports: Adenoidectomy, Myringotomy w Tube(s) Musculoskeletal Surgical History: Reports: Other (See Below), Shoulder Surgery Social & Family History - Family History Family Medical History: Noncontributory - Tobacco Use Smoking Status *Q: Current Every Day Smoker Years of Tobacco use: 20 Packs/Tins Daily: 1 - Caffeine Use Caffeine Use: Reports: Soda - Alcohol Use Alcohol Use History: Yes Alcohol Use Frequency: Rarely - Recreational Drug Use Recreational Drug Use: No - Living Situation & Occupation Living situation: Reports: Occupation: Unemployed ED ROS GENERAL - Review of Systems Review Of Systems: See Below Constitutional: Reports: Decreased Appetite. Denies: Fever, Chills Cardiovascular: Reports: Chest Pain (chest discomfort) GI/Abdominal: Reports: Abdominal Pain (diffuse abd cramping/aching pain), Diarrhea, Hematemesis (small flecks of blood in emesis bag), Nausea, Vomiting. Denies: Stool Incontinence : Denies: Dysuria, Flank Pain, Frequency, Urgency ED EXAM, GI/ABD - Physical Exam Exam: See Below Exam Limited By: No Limitations General Appearance: Alert, WD/WN, No Apparent Distress Eyes: Bilateral: Normal Appearance (pupils enlarged, roughly 5-6mm), EOMI Ears: Normal External Exam Nose: Normal Inspection Throat/Mouth: Normal Inspection, Normal Lips, Normal Teeth, Normal Gums, Normal Oropharynx, Normal Voice, No Airway Compromise Head: Atraumatic, Normocephalic Neck: Normal Inspection Respiratory/Chest: No Respiratory Distress, Lungs Clear, Normal Breath Sounds, No Accessory Muscle Use, Chest Non-Tender Cardiovascular: Normal Peripheral Pulses, Regular Rate, Rhythm, No Murmur GI/Abdominal Exam: Normal Bowel Sounds, Soft, No Distention, No Mass, Tender ( general diffuse tenderness, no one spot that is more tender than the rest) Extremities: Normal Inspection, Normal Capillary Refill Neurological: Alert, Oriented, Normal Cognition, No Motor/Sensory Deficits Psychiatric: Normal Affect, Normal Mood Skin Exam: Warm, Dry, Intact, Normal Color, No Rash Course - Vital Signs Last Recorded V/S: Last Vital Signs Temp 100.0 F 07/07/19 17:28 Pulse 80 07/07/19 17:28 Resp 24 H 07/07/19 17:28 BP 153/108 H 07/07/19 17:28 Pulse Ox 94 L 07/07/19 17:28 - Orders/Labs/Meds Orders: Active Orders 24 hr Category Date Time Status Sodium Chloride 0.9% [Normal Saline] 1,000 ml Med 07/07/19 14:30 Active IV ASDIRECTED Sodium Chloride 0.9% [Saline Flush] Med 07/07/19 14:36 Active 10 ml FLUSH ONETIME PRN Medication Orders Sodium Chloride (Normal Saline) 1,000 mls @ 999 mls/hr IV ASDIRECTED GILLIAN Last Admin: 07/07/19 14:37 Dose: 999 mls/hr Sodium Chloride (Saline Flush) 10 ml FLUSH ONETIME PRN PRN Reason: IV FLUSH Last Admin: 07/07/19 16:36 Dose: 10 ml Admin: 07/07/19 14:49 Dose: 10 ml Labs: Laboratory Tests 07/07/19 07/07/19 07/07/19 Range/Units 14:42 14:42 14:42 WBC 9.77 (3.98-10.04) K/mm3 RBC 4.31 (3.98-5.22) M/mm3 Hgb 13.5 (11.2-15.7) gm/dl Hct 41.4 (34.1-44.9) % MCV 96.1 H (79.4-94.8) fl MCH 31.3 (25.6-32.2) pg MCHC 32.6 (32.2-35.5) g/dl RDW Std Deviation 44.9 (36.4-46.3) fL Plt Count 364 (182-369) K/mm3 MPV 9.8 (9.4-12.3) fl Neutrophils % (Manual) 82 H (40-60) % Band Neutrophils % 0 (0-10) % Lymphocytes % (Manual) 16 L (20-40) % Atypical Lymphs % 0 % Monocytes % (Manual) 2 (2-10) % Eosinophils % (Manual) 0 L (0.7-5.8) % Basophils % (Manual) 0 L (0.1-1.2) Platelet Estimate Adequate RBC Morph Comment Normal ESR 28 H (0-20) mm/hr Sodium 136 (136-145) mEq/L Potassium 4.0 (3.5-5.1) mEq/L Chloride 100 (98-107) mEq/L Carbon Dioxide 22 (21-32) mEq/L Anion Gap 18.0 H (5-15) BUN 14 (7-18) mg/dL Creatinine 1.1 H (0.55-1.02) mg/dL Est Cr Clr Drug Dosing 64.28 mL/min Estimated GFR (MDRD) 55 (>60) mL/min BUN/Creatinine Ratio 12.7 L (14-18) Glucose 140 H (74-106) mg/dL Calcium 10.2 H (8.5-10.1) mg/dL Total Bilirubin 0.5 (0.2-1.0) mg/dL AST 52 H (15-37) U/L ALT 75 H (14-59) U/L Alkaline Phosphatase 83 (46-116) U/L C-Reactive Protein 0.4 (<1.0) mg/dL Total Protein 8.5 H (6.4-8.2) g/dl Albumin 4.4 (3.4-5.0) g/dl Globulin 4.1 gm/dL Albumin/Globulin Ratio 1.1 (1-2) Urine Color (Yellow) Urine Appearance (Clear) Urine pH (5.0-8.0) Ur Specific Wheel[place] (1.005-1.030) Urine Protein (Negative) Urine Glucose (UA) (Negative) Urine Ketones (Negative) Urine Occult Blood (Negative) Urine Nitrite (Negative) Urine Bilirubin (Negative) Urine Urobilinogen (0.2-1.0) Ur Leukocyte Esterase (Negative) Urine RBC (0-5) /hpf Urine WBC (0-5) /hpf Ur Squamous Epith Cells (0-5) /hpf Urine Bacteria (FEW) /hpf Urine Mucus (FEW) /hpf Urine Opiates Screen (OXZVXK=174) Ur Buprenorphine Scrn (CUTOFF=10) Ur Oxycodone Screen (XDF0QG=911) Urine Methadone Screen (GIFMZJ=418) Ur Propoxyphene Screen (HNECBY=197) Ur Barbiturates Screen (VMOLGX=676) Ur Tricyclics Screen (QMPFBR=146) Ur Phencyclidine Scrn (CUTOFF=25) Ur Amphetamine Screen (HPHPMI=457) U Methamphetamines Scrn (BHDBIB=993) U Benzodiazepines Scrn (TDDXMH=140) U Cocaine Metab Screen (JSDTXE=272) U Marijuana (THC) Screen (CUTOFF=50) 07/07/19 07/07/19 Range/Units 14:45 14:45 WBC (3.98-10.04) K/mm3 RBC (3.98-5.22) M/mm3 Hgb (11.2-15.7) gm/dl Hct (34.1-44.9) % MCV (79.4-94.8) fl MCH (25.6-32.2) pg MCHC (32.2-35.5) g/dl RDW Std Deviation (36.4-46.3) fL Plt Count (182-369) K/mm3 MPV (9.4-12.3) fl Neutrophils % (Manual) (40-60) % Band Neutrophils % (0-10) % Lymphocytes % (Manual) (20-40) % Atypical Lymphs % % Monocytes % (Manual) (2-10) % Eosinophils % (Manual) (0.7-5.8) % Basophils % (Manual) (0.1-1.2) Platelet Estimate RBC Morph Comment ESR (0-20) mm/hr Sodium (136-145) mEq/L Potassium (3.5-5.1) mEq/L Chloride (98-107) mEq/L Carbon Dioxide (21-32) mEq/L Anion Gap (5-15) BUN (7-18) mg/dL Creatinine (0.55-1.02) mg/dL Est Cr Clr Drug Dosing mL/min Estimated GFR (MDRD) (>60) mL/min BUN/Creatinine Ratio (14-18) Glucose (74-106) mg/dL Calcium (8.5-10.1) mg/dL Total Bilirubin (0.2-1.0) mg/dL AST (15-37) U/L ALT (14-59) U/L Alkaline Phosphatase (46-116) U/L C-Reactive Protein (<1.0) mg/dL Total Protein (6.4-8.2) g/dl Albumin (3.4-5.0) g/dl Globulin gm/dL Albumin/Globulin Ratio (1-2) Urine Color Yellow (Yellow) Urine Appearance Clear (Clear) Urine pH 6.5 (5.0-8.0) Ur Specific [place] > or = 1.030 (1.005-1.030) Urine Protein 1+ H (Negative) Urine Glucose (UA) Negative (Negative) Urine Ketones 2+ H (Negative) Urine Occult Blood Trace-lysed H (Negative) Urine Nitrite Negative (Negative) Urine Bilirubin 1+ H (Negative) Urine Urobilinogen 0.2 (0.2-1.0) Ur Leukocyte Esterase Negative (Negative) Urine RBC 5-10 H (0-5) /hpf Urine WBC 0-5 (0-5) /hpf Ur Squamous Epith Cells 20-30 H (0-5) /hpf Urine Bacteria Few (FEW) /hpf Urine Mucus Moderate H (FEW) /hpf Urine Opiates Screen Negative (JJAVOD=768) Ur Buprenorphine Scrn Negative (CUTOFF=10) Ur Oxycodone Screen Negative (NHW2UW=053) Urine Methadone Screen Negative (UFTFCB=245) Ur Propoxyphene Screen Negative (GCAQFL=179) Ur Barbiturates Screen Negative (LLUAVH=018) Ur Tricyclics Screen Negative (KLFRUD=455) Ur Phencyclidine Scrn Negative (CUTOFF=25) Ur Amphetamine Screen Negative (ZAKZMU=384) U Methamphetamines Scrn Presumptive positive H (TEZFUH=667) U Benzodiazepines Scrn Presumptive positive H (GPEKJJ=272) U Cocaine Metab Screen Negative (XJRRFK=193) U Marijuana (THC) Screen Negative (CUTOFF=50) Meds: Medications Generic Name Dose Route Start Last Admin Trade Name Freq PRN Reason Stop Dose Admin Sodium Chloride 1,000 mls @ 999 mls/hr 07/07/19 14:30 07/07/19 14:37 Normal Saline IV 999 mls/hr ASDIRECTED GILLIAN Administration Sodium Chloride 10 ml 07/07/19 14:36 07/07/19 16:36 Saline Flush FLUSH 10 ml ONETIME PRN Administration IV FLUSH Discontinued Medications Generic Name Dose Route Start Last Admin Trade Name Freq PRN Reason Stop Dose Admin Al Hydroxide/Mg Hydroxide 30 ml 07/07/19 14:22 07/07/19 15:34 Mag-Al Plus PO 07/07/19 14:23 30 ml ONETIME ONE Administration Diatrizoate Meglum/Diatrizoate Sod 120 ml 07/07/19 14:36 07/07/19 16:36 Gastrografin 37% PO 07/07/19 14:37 120 ml ONETIME ONE Administration Hydromorphone HCl 0.5 mg 07/07/19 16:48 07/07/19 16:52 Dilaudid IVPUSH 07/07/19 16:49 0.5 mg ONETIME ONE Administration Hyoscyamine 0.125 mg 07/07/19 14:21 07/07/19 14:52 Hyomax-Sl SL 07/07/19 14:22 0.125 mg ONETIME ONE Administration Promethazine HCl 25 mg/ Sodium 51 mls @ 100 mls/hr 07/07/19 16:55 07/07/19 17 :27 Chloride IV 07/07/19 17:25 100 mls/hr ONETIME ONE Administration Iopamidol 100 ml 07/07/19 14:36 07/07/19 16:37 Isovue-300 (61%) IVPUSH 07/07/19 14:37 100 ml ONETIME ONE Administration Lorazepam 2 mg 07/07/19 13:58 07/07/19 14:29 Ativan IM 07/07/19 13:59 Not Given ONETIME ONE Lorazepam 2 mg 07/07/19 14:21 07/07/19 14:42 Ativan IVPUSH 07/07/19 14:22 2 mg ONETIME ONE Administration Metoclopramide HCl 10 mg 07/07/19 14:21 07/07/19 14:39 Reglan IVPUSH 07/07/19 14:22 10 mg ONETIME ONE Administration Pantoprazole Sodium 40 mg 07/07/19 14:25 07/07/19 14:46 Protonix Iv IVPUSH 07/07/19 14:26 40 mg ONETIME ONE Administration Sucralfate 1 gm 07/07/19 14:24 07/07/19 15:34 Carafate PO 07/07/19 14:25 1 gm ONETIME ONE Administration - Re-Assessments/Exams Free Text/Narrative Re-Assessment/Exam: 07/07/19 14:36 Patient presents to the ED for the evaluation of worsening abdominal pain and nausea and vomiting. Due to her symptoms still being persistent, not getting much better, I will repeat the CT again today, to evaluate for ongoing colitis. Patient will have a CBC, CMP, CRP, sed rate, urinalysis and urine drug screen checked once again. Should be given 2 mg Ativan, Levsin, 10 mg Reglan and 40 mg Protonix with Maalox and sucralfate for her heartburn. Pt's case was discussed with Dr. Lopez, as this is her 4th visit to our ER in around 3 weeks with same symptoms. He suggested repeating CT with CRP and Sed rate for evaluation for possible Ulcerative colitis. 07/07/19 17:00 Labs are done, and demonstrate no obvious bacterial infection, sed rate is elevated, CRP is not elevated however, metabolic panel shows an elevated anion gap of 18, and other numbers on the metabolic panel are not much different than they were 2 days prior. Urine drug screen demonstrates she is presumptive positive for methamphetamines and benzodiazepines, she did not elicit any sort of medication that she had taken that would have pointed positive for methamphetamines. RN did inform me the patient was having a little bit more pain, and nausea, so I ordered 0.5 mg of IV Dilaudid and 25 mg IV Phenergan for management. It was made known to me that the patient was only able to get about half bottle of her oral contrast down, but CT will still be obtained at this time. 07/07/19 17:55 CT demonstrated possible bowel wall thickening within the colon which appears similar to prior exam. Difficult to exclude persistent or recurrent colitis. I did discuss this case with Dr. Lopez, after CT again, and he believed that the patient would be best served by hospital admission with colonoscopy for further evaluation of her symptoms. I did discuss with the patient, and they agree, we are on diversion so the patient be transferred to [place], I did call [facility] in [place] and Dr. Mullins accepts for management of the patient's colitis at this time. Departure - Departure Time of Disposition: 17:57 Disposition: DC/Tfer to Acute Hospital 02 Condition: Fair Clinical Impression: Colitis - Discharge Information *PRESCRIPTION DRUG MONITORING PROGRAM REVIEWED*: No *COPY OF PRESCRIPTION DRUG MONITORING REPORT IN PATIENT BARB: No Referrals: Nicole Pacheco MD [Primary Care Provider] - Forms: ED Department Discharge Sepsis Event Note - Evaluation Sepsis Screening Result: No Definite Risk - Focused Exam Vital Signs: Vital Signs Temp Pulse Resp BP Pulse Ox 07/07/19 17:28 100.0 F 80 24 H 153/108 H 94 L 07/07/19 14:02 97.5 F 83 33 H 158/108 H 98 Date Exam was Performed: 07/07/19 Time Exam was Performed: 17:58 - My Orders Last 24 Hours: My Active Orders 07/07/19 14:30 Sodium Chloride 0.9% [Normal Saline] 1,000 ml IV ASDIRECTED 07/07/19 14:36 Sodium Chloride 0.9% [Saline Flush] 10 ml FLUSH ONETIME PRN - Assessment/Plan Last 24 Hours: My Active Orders 07/07/19 14:30 Sodium Chloride 0.9% [Normal Saline] 1,000 ml IV ASDIRECTED 07/07/19 14:36 Sodium Chloride 0.9% [Saline Flush] 10 ml FLUSH ONETIME PRN
[2019-07-07] MEDS ORDERED: Sodium Chloride 0.9% 1,000 ML IV SCH (14:30)
[2019-07-07] MEDS ORDERED: Iopamidol 612 MG/ML 100 ML Bottle IVPUSH ONE (14:36)
[2019-07-07] MEDS ORDERED: Diatrizoate Meglumine/Diatrizoate Sodium 37% 120 ML Bottle PO ONE (14:36)
[2019-07-07] MEDS: Sodium Chloride 0.9% 10 ML Syringe FLUSH PRN ×2 (14:49→16:36)
[2019-07-07] MEDS ORDERED: HYDROmorphone 0.5 MG/0.5 ML Syringe IVPUSH ONE ×2 (16:48→18:03)
[2019-07-07] MEDS ORDERED: Promethazine 25 MG in Sodium Chloride 0.9% 50 ML IV ONE (16:55)
--- NOTE | 2019-07-07 17:08 | CT ---
CT abdomen and pelvis Technique: Multiple axial sections were obtained from above the dome of the diaphragm inferiorly through the pubic symphysis. Intravenous contrast was utilized. Oral contrast has also been given. Delayed images were obtained through the bladder. Comparison: Previous CT abdomen and pelvis exam of 06/20/19 is available. Findings: Visualized lung bases show nothing acute. Liver contains no focal parenchymal abnormality. Gallbladder contains no calcified gallstones. Spleen appears within normal limits. Adrenal glands show no nodule. Kidneys show symmetric contrast enhancement without hydronephrosis or mass. Pancreas is within normal limits. Aorta shows no aneurysm. No retroperitoneal adenopathy is seen. No mesenteric abnormalities are seen. No pelvic mass or adenopathy is seen. No free fluid or inflammatory change is identified. Possible bowel wall thickening within the colon is seen. This finding is fairly similar to previous exam. Appendix is seen which is normal in size. No bowel dilatation is seen. Impression: 1. Possible bowel wall thickening within the colon which appears similar to prior exam. Difficult to exclude persisting or recurrent colitis. 2. No additional abnormality is identified on CT study of the abdomen and pelvis. Diagnostic code #3 This report was dictated in [place] [employer] Time
[2019-07-07] MEDS ORDERED: Ondansetron 4 MG/2 ML SDV IVPUSH ONE (18:03)
[2019-07-07] MEDS ORDERED: D5 1/2 NS w/ 20 mEq/L KCl 1,000 ML IV ONE (18:04)
== END 2019-07-07 19:31 ==
LOC: JD.ED 13:48 → SUPCPDRO 13:48 → JD.ED 19:31
DX: K52.9 Noninfective gastroenteritis and colitis, unspecified (principal); F17.210 Nicotine dependence, cigarettes, uncomplicated; E11.9 Type 2 diabetes mellitus without complications; F41.9 Anxiety disorder, unspecified; F32.9 Major depressive disorder, single episode, unspecified; Z88.0 Allergy status to penicillin
CPT/HCPCS: 36415; 74177; 80053; 80306; 81001; 85007; 85027; 85652; 86140; 96361; 96365; 96375; 96376; 99285; A9270; C9113; J1170; J2060; J2405; J2550; J2765; J3480; J7030; J7050; Q9963; Q9967; 99284

== ENCOUNTER 2019-07-29 17:12 | Emergency (ER) | payer MEDICAID ==
--- NOTE | 2019-07-29 17:53 | EDM.PDOC ---
ED HPI GENERAL MEDICAL PROBLEM - General Chief Complaint: Gastrointestinal Problem Stated Complaint: VOMITING Time Seen by Provider: 07/29/19 17:52 - History of Present Illness INITIAL COMMENTS - FREE TEXT/NARRATIVE: 39-year-old female returns to the emergency room with abdominal pain nausea and vomiting. This started earlier today. She is had nausea vomiting. She has not had any diarrhea. Patient that she had colitis and she is been treated several times for colitis here in the emergency department. She just completed a pretty aggressive work-up in [place] and their findings were unremarkable colonoscopy biopsies did not show evidence of colitis she had a few benign polyps but nothing suggestive of colitis. Past this is how some of her episodes have started. Generalized Pain Score (Numeric/FACES): 8 - Related Data Allergies Allergy/AdvReac Type Severity Reaction Status Date / Time amoxicillin [Amoxicillin] Allergy Hives Verified 07/29/19 17:34 Penicillins Allergy Hives Verified 07/29/19 17:34 Home Meds: Home Meds Ketamine Cream. 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: ovarian cysts, laprascopy Musculoskeletal History: Reports: None Neurological History: Reports: Migraines Psychiatric History: Reports: Anxiety, Depression Endocrine/Metabolic History: Reports: Diabetes, Type II Hematologic History: Reports: None Immunologic History: Reports: None Oncologic (Cancer) History: Reports: None Dermatologic History: Reports: None - Infectious Disease History Infectious Disease History: Reports: None - Past Surgical History HEENT Surgical History: Reports: Adenoidectomy, Myringotomy w Tube(s) Female Surgical History: Reports: None Musculoskeletal Surgical History: Reports: Other (See Below), Shoulder Surgery Oncologic Surgical History: Reports: None Dermatological Surgical History: Reports: None Social & Family History - Family History Family Medical History: Noncontributory - Tobacco Use Smoking Status *Q: Current Every Day Smoker Years of Tobacco use: 20 Packs/Tins Daily: 1 - Caffeine Use Caffeine Use: Reports: Coffee, Energy Drinks, Soda, Tea - Recreational Drug Use Recreational Drug Use: No - Living Situation & Occupation Living situation: Reports: Occupation: Unemployed ED ROS GENERAL - Review of Systems Review Of Systems: See Below Constitutional: Reports: No Symptoms HEENT: Reports: No Symptoms Respiratory: Reports: No Symptoms Cardiovascular: Reports: No Symptoms GI/Abdominal: Reports: Abdominal Pain, Diarrhea, Nausea, Vomiting : Reports: No Symptoms Musculoskeletal: Reports: No Symptoms Skin: Reports: No Symptoms Psychiatric: Reports: Anxiety ED EXAM, GI/ABD - Physical Exam Exam: See Below Exam Limited By: No Limitations General Appearance: Alert, Anxious Head: Atraumatic, Normocephalic Neck: Normal Inspection, Supple, Non-Tender, Full Range of Motion. No: Lymphadenopathy (L), Lymphadenopathy (R) Respiratory/Chest: No Respiratory Distress, Lungs Clear, Normal Breath Sounds Cardiovascular: Regular Rate, Rhythm, No Edema, No Murmur GI/Abdominal Exam: Normal Bowel Sounds, Soft, Other (Tenderness throughout no rigidity rebound or guarding) Back Exam: Normal Inspection. No: CVA Tenderness (L), CVA Tenderness (R) Extremities: Normal Inspection Neurological: Alert, Oriented, Normal Cognition Course - Vital Signs Last Recorded V/S: Last Vital Signs Temp 36.5 C 07/29/19 17:31 Pulse 123 H 07/29/19 17:31 Resp 18 07/29/19 17:31 BP 159/109 H 07/29/19 17:31 Pulse Ox 100 07/29/19 17:31 - Orders/Labs/Meds Orders: Active Orders 24 hr Category Date Time Status Abdomen Pelvis w Cont [CT] Stat Exams 07/29/19 20:54 Taken Acetaminophen/HYDROcodone [[place]orne 325-5 MG] Med 07/29/19 23:44 Once 1 tab PO ONETIME ONE Medication Orders Hydrocodone Bitart/Acetaminophen ([place] 325-5 Mg) 1 tab PO ONETIME ONE Stop: 07/29/19 23:45 Labs: Laboratory Tests 07/29/19 07/29/19 07/29/19 Range/Units 18:40 18:40 18:40 WBC 14.95 H (3.98-10.04) K/mm3 RBC 4.28 (3.98-5.22) M/mm3 Hgb 13.5 (11.2-15.7) gm/dl Hct 40.7 (34.1-44.9) % MCV 95.1 H (79.4-94.8) fl MCH 31.5 (25.6-32.2) pg MCHC 33.2 (32.2-35.5) g/dl RDW Std Deviation 47.5 H (36.4-46.3) fL Plt Count 336 (182-369) K/mm3 MPV 9.8 (9.4-12.3) fl Neutrophils % (Manual) 81 H (40-60) % Band Neutrophils % 1 (0-10) % Lymphocytes % (Manual) 11 L (20-40) % Atypical Lymphs % 0 % Monocytes % (Manual) 5 (2-10) % Eosinophils % (Manual) 0 L (0.7-5.8) % Basophils % (Manual) 1 (0.1-1.2) Promyelocytes % 1 Toxic Granulation Few Platelet Estimate Adequate RBC Morph Comment Normal Sodium 136 (136-145) mEq/L Potassium 3.8 (3.5-5.1) mEq/L Chloride 99 (98-107) mEq/L Carbon Dioxide 24 (21-32) mEq/L Anion Gap 16.8 H (5-15) BUN 16 (7-18) mg/dL Creatinine 0.9 (0.55-1.02) mg/dL Est Cr Clr Drug Dosing 81.61 mL/min Estimated GFR (MDRD) > 60 (>60) mL/min BUN/Creatinine Ratio 17.8 (14-18) Glucose 106 (74-106) mg/dL Calcium 9.3 (8.5-10.1) mg/dL Total Bilirubin 0.3 (0.2-1.0) mg/dL AST 113 H (15-37) U/L ALT 166 H (14-59) U/L Alkaline Phosphatase 134 H (46-116) U/L Total Protein 8.8 H (6.4-8.2) g/dl Albumin 4.0 (3.4-5.0) g/dl Globulin 4.8 gm/dL Albumin/Globulin Ratio 0.8 L (1-2) Lipase 71 L (73-393) U/L HCG, Qual Negative (NEGATIVE) Urine Color (Yellow) Urine Appearance (Clear) Urine pH (5.0-8.0) Ur Specific [place] (1.005-1.030) Urine Protein (Negative) Urine Glucose (UA) (Negative) Urine Ketones (Negative) Urine Occult Blood (Negative) Urine Nitrite (Negative) Urine Bilirubin (Negative) Urine Urobilinogen (0.2-1.0) Ur Leukocyte Esterase (Negative) Urine RBC (0-5) /hpf Urine WBC (0-5) /hpf Ur Epithelial Cells (0-5) /hpf Urine Bacteria (FEW) /hpf Urine Mucus (FEW) /hpf Urine Opiates Screen (IPGQRG=444) Ur Buprenorphine Scrn (CUTOFF=10) Ur Oxycodone Screen (LRR7MV=410) Urine Methadone Screen (ETRXBT=374) Ur Propoxyphene Screen (QSVAFY=792) Ur Barbiturates Screen (EZDPGA=211) Ur Tricyclics Screen (CNNHOE=959) Ur Phencyclidine Scrn (CUTOFF=25) Ur Amphetamine Screen (YRKKSI=584) U Methamphetamines Scrn (OGXLFH=575) U Benzodiazepines Scrn (NCWHMH=725) U Cocaine Metab Screen (YNMHHX=170) U Marijuana (THC) Screen (CUTOFF=50) 07/29/19 07/29/19 Range/Units 19:35 19:35 WBC (3.98-10.04) K/mm3 RBC (3.98-5.22) M/mm3 Hgb (11.2-15.7) gm/dl Hct (34.1-44.9) % MCV (79.4-94.8) fl MCH (25.6-32.2) pg MCHC (32.2-35.5) g/dl RDW Std Deviation (36.4-46.3) fL Plt Count (182-369) K/mm3 MPV (9.4-12.3) fl Neutrophils % (Manual) (40-60) % Band Neutrophils % (0-10) % Lymphocytes % (Manual) (20-40) % Atypical Lymphs % % Monocytes % (Manual) (2-10) % Eosinophils % (Manual) (0.7-5.8) % Basophils % (Manual) (0.1-1.2) Promyelocytes % Toxic Granulation Platelet Estimate RBC Morph Comment Sodium (136-145) mEq/L Potassium (3.5-5.1) mEq/L Chloride (98-107) mEq/L Carbon Dioxide (21-32) mEq/L Anion Gap (5-15) BUN (7-18) mg/dL Creatinine (0.55-1.02) mg/dL Est Cr Clr Drug Dosing mL/min Estimated GFR (MDRD) (>60) mL/min BUN/Creatinine Ratio (14-18) Glucose (74-106) mg/dL Calcium (8.5-10.1) mg/dL Total Bilirubin (0.2-1.0) mg/dL AST (15-37) U/L ALT (14-59) U/L Alkaline Phosphatase (46-116) U/L Total Protein (6.4-8.2) g/dl Albumin (3.4-5.0) g/dl Globulin gm/dL Albumin/Globulin Ratio (1-2) Lipase (73-393) U/L HCG, Qual (NEGATIVE) Urine Color Yellow (Yellow) Urine Appearance Clear (Clear) Urine pH 7.0 (5.0-8.0) Ur Specific [place] 1.020 (1.005-1.030) Urine Protein Negative (Negative) Urine Glucose (UA) Negative (Negative) Urine Ketones 1+ H (Negative) Urine Occult Blood Negative (Negative) Urine Nitrite Negative (Negative) Urine Bilirubin Negative (Negative) Urine Urobilinogen 0.2 (0.2-1.0) Ur Leukocyte Esterase Negative (Negative) Urine RBC 0-5 (0-5) /hpf Urine WBC 0-5 (0-5) /hpf Ur Epithelial Cells 0-5 (0-5) /hpf Urine Bacteria Few (FEW) /hpf Urine Mucus Not seen (FEW) /hpf Urine Opiates Screen Negative (PSLUZD=786) Ur Buprenorphine Scrn Negative (CUTOFF=10) Ur Oxycodone Screen Negative (ABT1LR=861) Urine Methadone Screen Negative (JUYMGN=635) Ur Propoxyphene Screen Negative (QZLUMD=704) Ur Barbiturates Screen Negative (XSFBFX=984) Ur Tricyclics Screen Negative (KNAXYU=745) Ur Phencyclidine Scrn Negative (CUTOFF=25) Ur Amphetamine Screen Negative (BDLPBN=526) U Methamphetamines Scrn Negative (PFREGR=318) U Benzodiazepines Scrn Negative (ZEMPOA=617) U Cocaine Metab Screen Negative (OJGGFU=595) U Marijuana (THC) Screen Negative (CUTOFF=50) Meds: Medications Generic Name Dose Route Start Last Admin Trade Name Freq PRN Reason Stop Dose Admin Hydrocodone Bitart/Acetaminophen 1 tab 07/29/19 23:44 [place] 325-5 Mg PO 07/29/19 23:45 ONETIME ONE Discontinued Medications Generic Name Dose Route Start Last Admin Trade Name Freq PRN Reason Stop Dose Admin Hydromorphone HCl 0.5 mg 07/29/19 18:06 07/29/19 18:24 Dilaudid IVPUSH 07/29/19 18:07 0.5 mg ONETIME ONE Administration Hydromorphone HCl 0.5 mg 07/29/19 20:48 07/29/19 20:55 Dilaudid IVPUSH 07/29/19 20:49 0.5 mg ONETIME ONE Administration Lactated Ringer's 1,000 mls @ 999 mls/hr 07/29/19 18:06 07/29/19 18:23 Ringers, Lactated IV 07/29/19 19:06 999 mls/hr .BOLUS ONE Administration Lactated Ringer's 1,000 mls @ 999 mls/hr 07/29/19 20:48 07/29/19 20:56 Ringers, Lactated IV 07/29/19 21:48 999 mls/hr .BOLUS ONE Administration Lorazepam 1 mg 07/29/19 22:38 07/29/19 22:43 Ativan IVPUSH 07/29/19 22:39 1 mg ONETIME ONE Administration Lorazepam 1 mg 07/29/19 23:36 Ativan PO 07/29/19 23:37 ONETIME ONE Metoclopramide HCl 5 mg 07/29/19 21:38 07/29/19 21:49 Reglan IVPUSH 07/29/19 21:39 5 mg ONETIME ONE Administration Ondansetron HCl 4 mg 07/29/19 18:06 07/29/19 18:23 Zofran IVPUSH 07/29/19 18:07 4 mg ONETIME ONE Administration Ondansetron HCl 4 mg 07/29/19 20:48 07/29/19 20:55 Zofran IVPUSH 07/29/19 20:49 4 mg ONETIME ONE Administration - Re-Assessments/Exams Free Text/Narrative Re-Assessment/Exam: 07/29/19 19:47 Still waiting on urinalysis to be obtained 07/29/19 23:45 CT does not show any acute changes nothing was showed up on her labs the patient is very anxious and is a bundle nerves and I am wondering if this could be causing the majority of her symptoms. She has been on multiple rounds of antibiotics and think is reasonable with the diarrhea to make sure she does not have C. difficile so wrote an outpatient order for C. difficile we will discharge her with some Zofran, 1 Ativan for anxiety, as she has follow-up with her regular doctor tomorrow and 1 Haw[place]orne for the discomfort from vomiting Departure - Departure Time of Disposition: 23:23 Disposition: Home, Self-Care 01 Clinical Impression: Abdominal pain, Anxiety, Nausea vomiting and diarrhea - Discharge Information Instructions: Nausea and Vomiting, Adult, [id number], Abdominal Pain, Adult, [id number], Diarrhea, Adult, [id number] Referrals: Nicole Pacheco MD [Primary Care Provider] - Forms: ED Department Discharge Additional Instructions: Return to the emergency room with any questions problems or worsening symptoms. Follow-up with your regular doctor tomorrow as scheduled. Discuss anxiety as a potential cause for some your stomach trouble. Use the Zofran as needed for nausea. Push lots of fluids. Return to the hospital with a stool specimen. Sepsis Event Note - Evaluation Sepsis Screening Result: No Definite Risk - Focused Exam Vital Signs: Vital Signs Temp Pulse Resp BP Pulse Ox 07/29/19 17:31 36.5 C 123 H 18 159/109 H 100 Date Exam was Performed: 07/29/19 Time Exam was Performed: 23:45 - My Orders Last 24 Hours: My Active Orders 07/29/19 20:54 Abdomen Pelvis w Cont [CT] Stat 07/29/19 23:44 Acetaminophen/HYDROcodone [[place] 325-5 MG] 1 tab PO ONETIME ONE - Assessment/Plan Last 24 Hours: My Active Orders 07/29/19 20:54 Abdomen Pelvis w Cont [CT] Stat 07/29/19 23:44 Acetaminophen/HYDROcodone [[place] 325-5 MG] 1 tab PO ONETIME ONE
[2019-07-29] MEDS ORDERED: Ondansetron 4 MG/2 ML SDV IVPUSH ONE ×2 (18:06→20:48)
[2019-07-29] MEDS ORDERED: HYDROmorphone 0.5 MG/0.5 ML Syringe IVPUSH ONE ×2 (18:06→20:48)
[2019-07-29] MEDS ORDERED: Lactated Ringers 1,000 ML IV ONE ×2 (18:06→20:48)
[2019-07-29] MEDS ORDERED: Metoclopramide 10 MG/2 ML SDV IVPUSH ONE (21:38)
[2019-07-29] MEDS ORDERED: LORazepam 2 MG/ML SDV IVPUSH ONE (22:38)
[2019-07-29] MEDS ORDERED: LORazepam 1 MG Tab PO ONE (23:36)
[2019-07-29] MEDS ORDERED: Acetaminophen/HYDROcodone 325-5 MG Tab PO ONE (23:44)
[2019-07-29] MEDS ORDERED: Acetaminophen/HYDROcodone 325-10 MG Tab ONE (23:45)
[2019-07-30] MEDS ORDERED: traZODone 50 MG Tab PO ONE (00:07)
--- NOTE | 2019-07-30 07:15 | CT ---
CT abdomen and pelvis Technique: Multiple axial sections were obtained from above the dome of the diaphragm inferiorly through the pubic symphysis. Intravenous contrast was utilized. Small amount of oral contrast is seen which mostly remains within the stomach. Delayed images were also obtained through the bladder. Comparison: Previous CT abdomen and pelvis study of 07/07/19. Findings: Minimal linear scar seen within the right lung base which is stable from previous exam. Liver contains no focal abnormality. Gallbladder contains no calcified gallstones. Spleen appears within normal limits. Adrenal glands show no nodule. Pancreas is within normal limits. Kidneys show symmetric contrast enhancement without hydronephrosis or mass. Aorta shows no aneurysm. No retroperitoneal adenopathy or mesenteric abnormalities are seen. No pelvic mass or adenopathy is seen. No free fluid or inflammatory change is seen. No bowel dilatation is appreciated. Delayed images show contrast within the distal ureters and within the bladder. Appendix is seen which is normal in size. Bone window settings were reviewed which show no discrete osseous finding. Impression: 1. Small scar within the right lung base. 2. Nothing acute is appreciated on CT study of the abdomen and pelvis. Diagnostic code #2 This report was dictated in [employer] Standard Time I agree with preliminary report from [facility], finalized on 07/29/19, 11:52 PM Central Time
== END 2019-07-30 00:16 | disposition home or self-care (01) ==
LOC: JD.ED 17:12
DX: R11.2 Nausea with vomiting, unspecified (principal); R19.7 Diarrhea, unspecified; R10.9 Unspecified abdominal pain; F41.9 Anxiety disorder, unspecified; F17.210 Nicotine dependence, cigarettes, uncomplicated; Z88.0 Allergy status to penicillin
CPT/HCPCS: 36415; 74177; 80053; 80306; 81001; 83690; 84703; 85007; 85027; 87804; 96361; 96374; 96375; 96376; 99284; A9270; J1170; J2060; J2405; J2765; J7120

== ENCOUNTER 2019-07-30 08:22 | Emergency (ER) | payer MEDICAID ==
[2019-07-30] MEDS ORDERED: Ketorolac 30 MG/ML SDV IVPUSH ONE (08:48)
[2019-07-30] MEDS ORDERED: Metoclopramide 10 MG/2 ML SDV IVPUSH ONE (08:48)
--- NOTE | 2019-07-30 08:56 | EDM.PDOC ---
ED HPI GENERAL MEDICAL PROBLEM - General Chief Complaint: Abdominal Pain Stated Complaint: VOMITTING/ABDOMINAL PAIN Time Seen by Provider: 07/30/19 08:40 Source of Information: Reports: Patient History Limitations: Reports: No Limitations - History of Present Illness INITIAL COMMENTS - FREE TEXT/NARRATIVE: Patient is a 39-year-old female who presents with complaints of generalized abdominal pain which is worse in the epigastric and left upper quadrant, headache, and vomiting that started yesterday. She was discharged from this ER approximately 9 hours ago with similar symptoms. CT was done at that time which showed no acute findings. She does have a history of colitis, however there were no findings of colitis on the CT and the patient has had no diarrhea. She states that she took a Zofran ODT approximately 3 hours prior to arrival, however she continues to have bilious emesis. She is diaphoretic and tremoring. She denies any history of illicit drug use or alcohol abuse. She does take clonazepam 0.5 mg 3 times a day, however she has been out for the last 48 hours. 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 Abdomen Pain Score (Numeric/FACES): 8 - Related Data Allergies Allergy/AdvReac Type Severity Reaction Status Date / Time amoxicillin [Amoxicillin] Allergy Hives Verified 07/30/19 08:37 Penicillins Allergy Hives Verified 07/30/19 08:37 Home Meds: Home Meds Ketamine Cream. 1 applic TRDERM ASDIRECTED 09/30/18 [History] ClonazePAM [KlonoPIN] 0.5 mg PO TID 04/20/19 [History] tiZANidine [Zanaflex] 4 mg PO TID 04/20/19 [History] Ondansetron [Zofran ODT] 4 mg PO Q6H PRN #10 tab.dis 07/06/19 [Rx] Dicyclomine [Bentyl] 20 mg PO Q6H PRN #10 tab 07/30/19 [Rx] Past Medical History HEENT History: Reports: None Cardiovascular History: Reports: Other (See Below) Other Cardiovascular History: heart murmur as a baby Respiratory History: Reports: Asthma Gastrointestinal History: Reports: Other (See Below) Other Gastrointestinal History: nonspecific colitis Genitourinary History: Reports: None HOROLOGIST History: Reports: Other (See Below) Other HOROLOGIST History: ovarian cysts, laprascopy Musculoskeletal History: Reports: None Neurological History: Reports: Migraines Psychiatric History: Reports: Anxiety, Depression Endocrine/Metabolic History: Reports: Diabetes, Type II Hematologic History: Reports: None Immunologic History: Reports: None Oncologic (Cancer) History: Reports: None Dermatologic History: Reports: None - Infectious Disease History Infectious Disease History: Reports: None - Past Surgical History HEENT Surgical History: Reports: Adenoidectomy, Myringotomy w Tube(s) Female Surgical History: Reports: None Musculoskeletal Surgical History: Reports: Other (See Below), Shoulder Surgery Oncologic Surgical History: Reports: None Dermatological Surgical History: Reports: None Social & Family History - Family History Family Medical History: Noncontributory - Tobacco Use Smoking Status *Q: Current Every Day Smoker Years of Tobacco use: 20 Packs/Tins Daily: 1 - Caffeine Use Caffeine Use: Reports: Soda - Recreational Drug Use Recreational Drug Use: No - Living Situation & Occupation Living situation: Reports: Occupation: Unemployed ED ROS GENERAL - Review of Systems Review Of Systems: See Below Constitutional: Reports: Chills, Fatigue, Diaphoresis HEENT: Reports: No Symptoms Respiratory: Reports: No Symptoms Cardiovascular: Reports: No Symptoms GI/Abdominal: Reports: Abdominal Pain, Nausea, Vomiting. Denies: Diarrhea : Reports: No Symptoms Musculoskeletal: Reports: No Symptoms Skin: Reports: No Symptoms Neurological: Reports: Headache Psychiatric: Reports: Anxiety Hematologic/Lymphatic: Reports: No Symptoms Immunologic: Reports: No Symptoms ED EXAM, GI/ABD - Physical Exam Exam: See Below Exam Limited By: No Limitations General Appearance: Alert, WD/WN, Mild Distress Head: Atraumatic, Normocephalic Respiratory/Chest: No Respiratory Distress, Lungs Clear, Normal Breath Sounds, No Accessory Muscle Use, Chest Non-Tender Cardiovascular: Normal Peripheral Pulses, Regular Rate, Rhythm, No Edema, No Murmur GI/Abdominal Exam: Normal Bowel Sounds, Soft, Tender (Generalized tenderness throughout. Worse in the left upper quadrant.) Neurological: Alert, Oriented, Normal Cognition Psychiatric: Normal Affect, Anxious Skin Exam: Warm, Intact, Normal Color, No Rash, Diaphoretic Course - Vital Signs Last Recorded V/S: Last Vital Signs Temp 98.8 F 07/30/19 08:34 Pulse 139 H 07/30/19 08:34 Resp 15 07/30/19 08:34 BP 162/94 H 07/30/19 08:34 Pulse Ox 95 07/30/19 08:34 - Orders/Labs/Meds Orders: Active Orders 24 hr Category Date Time Status Sodium Chloride 0.9% [Normal Saline] 1,000 ml Med 07/30/19 09:00 Active IV ASDIRECTED Sodium Chloride 0.9% [Normal Saline] 1,000 ml Med 07/30/19 10:30 Active IV ASDIRECTED Medication Orders Sodium Chloride (Normal Saline) 1,000 mls @ 999 mls/hr IV ASDIRECTED GILLIAN Last Admin: 07/30/19 09:22 Dose: 999 mls/hr Sodium Chloride (Normal Saline) 1,000 mls @ 999 mls/hr IV ASDIRECTED GILLIAN Last Admin: 07/30/19 10:31 Dose: 999 mls/hr Labs: Laboratory Tests 07/30/19 07/30/19 Range/Units 09:23 09:23 WBC 14.23 H (3.98-10.04) K/mm3 RBC 4.53 (3.98-5.22) M/mm3 Hgb 14.4 (11.2-15.7) gm/dl Hct 43.1 (34.1-44.9) % MCV 95.1 H (79.4-94.8) fl MCH 31.8 (25.6-32.2) pg MCHC 33.4 (32.2-35.5) g/dl RDW Std Deviation 48.6 H (36.4-46.3) fL Plt Count 375 H (182-369) K/mm3 MPV 10.0 (9.4-12.3) fl Neut % (Auto) 83.7 H (34.0-71.1) % Lymph % (Auto) 9.6 L (19.3-51.7) % [place] % (Auto) 6.4 (4.7-12.5) % Eos % (Auto) 0 L (0.7-5.8) Baso % (Auto) 0.1 (0.1-1.2) % Neut # (Auto) 11.91 H (1.56-6.13) K/mm3 Lymph # (Auto) 1.37 (1.18-3.74) K/mm3 [place] # (Auto) 0.91 H (0.24-0.36) K/mm3 Eos # (Auto) 0.00 L (0.04-0.36) K/mm3 Baso # (Auto) 0.01 (0.01-0.08) K/mm3 Manual Slide Review Normal smear Sodium 138 (136-145) mEq/L Potassium 3.8 (3.5-5.1) mEq/L Chloride 96 L (98-107) mEq/L Carbon Dioxide 25 (21-32) mEq/L Anion Gap 20.8 H (5-15) BUN 16 (7-18) mg/dL Creatinine 1.0 (0.55-1.02) mg/dL Est Cr Clr Drug Dosing TNP Estimated GFR (MDRD) > 60 (>60) mL/min BUN/Creatinine Ratio 16.0 (14-18) Glucose 131 H (74-106) mg/dL Calcium 10.2 H (8.5-10.1) mg/dL Total Bilirubin 0.4 (0.2-1.0) mg/dL AST 122 H (15-37) U/L ALT 196 H (14-59) U/L Alkaline Phosphatase 134 H (46-116) U/L C-Reactive Protein 1.5 H* (<1.0) mg/dL Total Protein 9.6 H (6.4-8.2) g/dl Albumin 4.3 (3.4-5.0) g/dl Globulin 5.3 gm/dL Albumin/Globulin Ratio 0.8 L (1-2) Lipase 71 L (73-393) U/L Meds: Medications Generic Name Dose Route Start Last Admin Trade Name Freq PRN Reason Stop Dose Admin Sodium Chloride 1,000 mls @ 999 mls/hr 07/30/19 09:00 07/30/19 09:22 Normal Saline IV 999 mls/hr ASDIRECTED GILLIAN Administration Sodium Chloride 1,000 mls @ 999 mls/hr 07/30/19 10:30 07/30/19 10:31 Normal Saline IV 999 mls/hr ASDIRECTED GILLIAN Administration Discontinued Medications Generic Name Dose Route Start Last Admin Trade Name Freq PRN Reason Stop Dose Admin Al Hydroxide/Mg Hydroxide 30 0 ml 07/30/19 09:54 01/08/20 10:06 ml/ Lidocaine HCl 15 ml PO 07/30/19 09:55 45 ml ONETIME ONE Administration Dicyclomine HCl 20 mg 07/30/19 11:09 07/30/19 11:30 Bentyl PO 07/30/19 11:10 20 mg ONETIME ONE Administration Hydromorphone HCl 0.5 mg 07/30/19 10:16 07/30/19 10:31 Dilaudid IVPUSH 07/30/19 10:17 0.5 mg ONETIME ONE Administration Ketorolac Tromethamine 30 mg 07/30/19 08:48 07/30/19 09:17 Toradol IVPUSH 07/30/19 08:49 30 mg ONETIME ONE Administration Lorazepam 0.5 mg 07/30/19 08:59 07/30/19 09:40 Ativan IVPUSH 07/30/19 09:00 0.5 mg ONETIME ONE Administration Lorazepam 0.5 mg 07/30/19 11:08 07/30/19 11:30 Ativan IVPUSH 07/30/19 11:09 0.5 mg ONETIME ONE Administration Metoclopramide HCl 7.5 mg 07/30/19 08:48 07/30/19 09:17 Reglan IVPUSH 07/30/19 08:49 7.5 mg ONETIME ONE Administration Ondansetron HCl 4 mg 07/30/19 10:26 07/30/19 10:31 Zofran IVPUSH 07/30/19 10:27 4 mg ONETIME ONE Administration - Re-Assessments/Exams Free Text/Narrative Re-Assessment/Exam: Based on patient's exam findings and previous labs and CT results, I feel is likely she is suffering from a viral gastroenteritis; however, she has been out of her clonazepam for "the last couple days "and there may also be a withdrawal and anxiety component to this. I will repeat lab work to include a CBC, CMP, CRP, and lipase. We'll give her 1 L bolus of normal saline, Reglan 7.5 mg, Toradol 30 mg IV, and Ativan 0.5 mg. 07/30/19 10:05 Nursing at notified this provider that the patient is complaining of heartburn. I have ordered a GI cocktail at this time. 07/30/19 10:33 Lab results are significant for mildly elevated white count at 14.23, anion gap of 20.8, AST 122, a old T1 96, alkaline phosphatase 134, CRP 1.5. Based on this patient is in a metabolic acidosis which is likely contributing to her intractable vomiting. I will give her a second liter of normal saline bolus. She continues to complain of abdominal pain and states that her nausea is starting to return. I will give Zofran 4 mg IV as well as Dilaudid 0.5 mg. Patient does continue to appear anxious. I will give the Dilaudid some time to work, and consider repeating the Ativan as needed. 07/30/19 11:11 Patient verbalizes that she is feeling somewhat better. She states occasionally she does have cramping in her abdomen, but nausea is better. I will repeat the Ativan 0.5 mg IV. I have also ordered Bentyl 20mg to be given now. She is no longer tachycardic or diaphoretic. We will send a prescription for Bentyl for abdominal cramping. She states that she does take a daily PPI as was prescribed by her PCP. 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 I also recommended that she schedule an appointment with Dr. Pacheco for sometime next week to have her labs rechecked, specifically her liver enzymes and follow-up on her anxiety. Discharge instructions as noted. Departure - Departure Time of Disposition: 11:22 Disposition: Home, Self-Care 01 Condition: Fair Clinical Impression: Abdominal pain Vomiting Qualifiers: Vomiting type: unspecified Vomiting Intractability: intractable Nausea presence : with nausea Qualified Code(s): R11.2 - Nausea with vomiting, unspecified - Discharge Information *PRESCRIPTION DRUG MONITORING PROGRAM REVIEWED*: No *COPY OF PRESCRIPTION DRUG MONITORING REPORT IN PATIENT BARB: No Prescriptions: Dicyclomine [Bentyl] 20 mg PO Q6H PRN #10 tab PRN Reason: Abdominal cramping Instructions: Abdominal Pain, Adult, [id number], Nausea and Vomiting, Adult Referrals: Nicole Pacheco MD [Primary Care Provider] - Forms: ED Department Discharge Additional Instructions: You were seen in the emergency department today for nausea, vomiting, and upper abdominal pain. While in the ER he received 2 L of normal saline, Dilaudid, Zofran, Reglan, Ativan, and Bentyl. It is likely that sure suffering from a viral gastroenteritis, however as we discussed, there could also be a withdrawal and anxiety component as you've not had your clonazepam for the last few days. Your lab tests were repeated today. They did show that she were dehydrated which should've been corrected by the IV fluids that you received. Your liver enzymes were also mildly elevated. We do recommend that you call to schedule an appointment with her primary care provider in approximately one week to have these labs rechecked and follow-up on your anxiety. I recommend that you continue to use the Zofran as needed for nausea. A prescription for Bentyl has been sent [place] pharmacy in [facility]. This may be used every 6 hours as needed for abdominal cramping. 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 I would recommend a clear liquid diet for at least the next 24 hours and then advance tolerated. He should experience any new or worsening symptoms, please don't hesitate to return to the emergency department. Sepsis Event Note - Evaluation Sepsis Screening Result: No Definite Risk - Focused Exam Vital Signs: Vital Signs Temp Pulse Resp BP Pulse Ox 07/30/19 08:34 98.8 F 139 H 15 162/94 H 95 Date Exam was Performed: 07/30/19 Time Exam was Performed: 11:53 - My Orders Last 24 Hours: My Active Orders 07/30/19 09:00 Sodium Chloride 0.9% [Normal Saline] 1,000 ml IV ASDIRECTED 07/30/19 10:30 Sodium Chloride 0.9% [Normal Saline] 1,000 ml IV ASDIRECTED - Assessment/Plan Last 24 Hours: My Active Orders 07/30/19 09:00 Sodium Chloride 0.9% [Normal Saline] 1,000 ml IV ASDIRECTED 07/30/19 10:30 Sodium Chloride 0.9% [Normal Saline] 1,000 ml IV ASDIRECTED
[2019-07-30] MEDS ORDERED: LORazepam 2 MG/ML SDV IVPUSH ONE ×2 (08:59→11:08)
[2019-07-30] MEDS ORDERED: Sodium Chloride 0.9% 1,000 ML IV SCH ×2 (09:00→10:30)
[2019-07-30] MEDS ORDERED: Alum Hydrox/Mag Hydrox/Simeth 30 ML, Lidocaine 2% 15 ML PO ONE ×2 (09:54)
[2019-07-30] MEDS ORDERED: HYDROmorphone 0.5 MG/0.5 ML Syringe IVPUSH ONE (10:16)
[2019-07-30] MEDS ORDERED: Ondansetron 4 MG/2 ML SDV IVPUSH ONE (10:26)
[2019-07-30] MEDS ORDERED: Dicyclomine 10 MG Cap PO ONE (11:09)
== END 2019-07-30 11:45 | disposition home or self-care (01) ==
LOC: JD.ED 08:22
DX: R11.2 Nausea with vomiting, unspecified (principal); R10.84 Generalized abdominal pain; F17.210 Nicotine dependence, cigarettes, uncomplicated; Z88.0 Allergy status to penicillin
CPT/HCPCS: 36415; 80053; 83690; 85025; 86140; 96361; 96374; 96375; 96376; 99284; A9270; J1170; J1885; J2060; J2405; J2765; J7030

== ENCOUNTER 2019-09-26 18:26 | Emergency (ER) | payer MEDICAID ==
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
[2019-09-26] MEDS ORDERED: Sodium Chloride 0.9% 1,000 ML IV SCH (20:00)
--- NOTE | 2019-09-26 20:02 | CT ---
Head CT Technique: Multiple axial sections through the brain were obtained. Intravenous contrast was not utilized. Comparison: Prior head CT exam of 04/20/19. Findings: Ventricles along with basal cisterns and sulci over the convexities are within normal limits for the patient's age. No abnormal parenchymal densities are seen. No evidence of intracranial hemorrhage. No midline shift or mass effect is seen. Bone window settings were reviewed. Visualized mastoid sinuses and visualized paranasal sinuses are clear. No acute calvarial abnormality is appreciated. Impression: 1. Nothing acute is appreciated on noncontrast head CT exam. Diagnostic code #1 Study was dictated in [place] Standard Time
== END 2019-09-26 22:38 | disposition home or self-care (01) ==
LOC: JD.ED 18:26
DX: S93.491A Sprain of other ligament of right ankle, initial encounter (principal); S39.012A Strain of muscle, fascia and tendon of lower back, initial encounter; R41.82 Altered mental status, unspecified; J45.909 Unspecified asthma, uncomplicated; F41.9 Anxiety disorder, unspecified; E11.9 Type 2 diabetes mellitus without complications; F17.210 Nicotine dependence, cigarettes, uncomplicated; Z79.899 Other long term (current) drug therapy; Z88.0 Allergy status to penicillin; V49.40XA Driver injured in collision with unspecified motor vehicles in traffic accident, initial encounter
CPT/HCPCS: 36415; 70450; 80053; 80306; 81001; 84703; 85025; 96360; 99284; J7030

== ENCOUNTER 2020-06-09 19:31 | Emergency (ER) | payer MEDICAID ==
--- NOTE | 2020-06-09 20:57 | EDM.PDOC ---
ED HPI GENERAL MEDICAL PROBLEM - General Chief Complaint: Abdominal Pain Stated Complaint: ABDOMINAL PAIN Time Seen by Provider: 06/09/20 20:57 - History of Present Illness INITIAL COMMENTS - FREE TEXT/NARRATIVE: 39-year-old female presents the emergency room with abdominal pain. According to the patient the pain started yesterday progressively got worse. She has significant nausea but she has not thrown up with this. Patient denies significant diarrhea and she does not have constipation the pain seems to be worse on the right side. The patient is treated for type 2 diabetes and does take Metformin. Patient is aware of any fevers or chills she just feels rotten. She has had some upper airway congestion and sniffles. She has generalized aches and pains. She has not been around anybody with a significant cough as far as she knows she has had no coronavirus exposure. She has not been tested recently. The patient does not believe she is . 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 1 applic TRDERM ASDIRECTED 09/30/18 [History] ClonazePAM [KlonoPIN] 0.5 mg PO TID 04/20/19 [History] tiZANidine [Zanaflex] 4 mg PO TID 04/20/19 [History] metFORMIN [Glucophage XR] 500 mg PO DAILY 06/09/20 [History] Past Medical History HEENT History: Reports: None Cardiovascular History: Reports: Other (See Below) Other Cardiovascular History: heart murmur as a baby Respiratory History: Reports: Asthma Gastrointestinal History: Reports: Other (See Below) Other Gastrointestinal History: nonspecific colitis Genitourinary History: Reports: None NURSING SCHEDULER History: Reports: Other (See Below) Other NURSING SCHEDULER History: ovarian cysts, laprascopy Musculoskeletal History: Reports: None Neurological History: Reports: Migraines Psychiatric History: Reports: Anxiety, Depression Endocrine/Metabolic History: Reports: Diabetes, Type II Hematologic History: Reports: None Immunologic History: Reports: None Oncologic (Cancer) History: Reports: None Dermatologic History: Reports: None - Infectious Disease History Infectious Disease History: Reports: None - Past Surgical History HEENT Surgical History: Reports: Adenoidectomy, Myringotomy w Tube(s) Cardiovascular Surgical History: Reports: None Respiratory Surgical History: Reports: None GI Surgical History: Reports: None Female Surgical History: Reports: None Endocrine Surgical History: Reports: None Neurological Surgical History: Reports: None Musculoskeletal Surgical History: Reports: Other (See Below), Shoulder Surgery Other Musculoskeletal Surgeries/Procedures:: herniated discs Oncologic Surgical History: Reports: None Dermatological Surgical History: Reports: None Social & Family History - Family History Family Medical History: No Pertinent Family History - Tobacco Use Tobacco Use Status *Q: Current Every Day Tobacco User Years of Tobacco use: 21 Packs/Tins Daily: 0.5 - Caffeine Use Caffeine Use: Reports: Coffee - Recreational Drug Use Recreational Drug Use: No - Living Situation & Occupation Living situation: Reports: Occupation: Unemployed ED ROS GENERAL - Review of Systems Review Of Systems: See Below Constitutional: Reports: Fever, Malaise, Weakness, Fatigue. Denies: No Symptoms, Chills HEENT: Reports: Rhinitis Respiratory: Denies: Shortness of Breath, Wheezing, Sputum Cardiovascular: Reports: No Symptoms Endocrine: Reports: No Symptoms GI/Abdominal: Reports: Abdominal Pain, Nausea. Denies: Constipation, Diarrhea, Vomiting : Reports: No Symptoms Musculoskeletal: Reports: Other (Generalized aches and pains) Skin: Reports: No Symptoms Neurological: Reports: No Symptoms Psychiatric: Reports: No Symptoms Hematologic/Lymphatic: Reports: No Symptoms Immunologic: Reports: No Symptoms ED EXAM, GI/ABD - Physical Exam Exam: See Below Exam Limited By: No Limitations General Appearance: Alert, Mild Distress (From the pain) Eyes: Bilateral: Normal Appearance Ears: Normal External Exam, Normal Canal, Hearing Grossly Normal, Normal TMs Nose: Normal Inspection, Normal Mucosa, No Blood Throat/Mouth: Normal Inspection, Normal Lips, Normal Teeth, Normal Gums, Normal Oropharynx, Normal Voice, No Airway Compromise Head: Atraumatic, Normocephalic Neck: Normal Inspection, Supple, Non-Tender, Full Range of Motion. No: Lymp hadenopathy (L), Lymphadenopathy (R) Respiratory/Chest: No Respiratory Distress, Lungs Clear, Normal Breath Sounds Cardiovascular: Regular Rate, Rhythm, No Edema, No Murmur GI/Abdominal Exam: Normal Bowel Sounds, Soft, Other (He has exquisite right- sided abdominal discomfort no rebound pain seems worse in the right lower qu adrant) Back Exam: Normal Inspection. No: CVA Tenderness (L), CVA Tenderness (R) Extremities: Normal Inspection Neurological: Alert, Oriented, Normal Cognition Psychiatric: Normal Affect, Normal Mood Course - Vital Signs Last Recorded V/S: Last Vital Signs Temp 37.4 C 06/09/20 20:00 Pulse 107 H 06/09/20 20:00 Resp 20 06/09/20 20:00 BP 137/103 H 06/09/20 20:00 Pulse Ox 100 06/09/20 20:00 - Orders/Labs/Meds Orders: Active Orders 24 hr Category Date Time Status Isolation [COMM] Routine Oth 06/09/20 21:09 Ordered Labs: Laboratory Tests 06/09/20 06/09/20 06/09/20 Range/Units 21:25 22:35 22:35 WBC 8.90 (3.98-10.04) K/mm3 RBC 4.54 (3.98-5.22) M/mm3 Hgb 13.5 D (11.2-15.7) gm/dl Hct 40.4 (34.1-44.9) % MCV 89.0 D (79.4-94.8) fl MCH 29.7 (25.6-32.2) pg MCHC 33.4 (32.2-35.5) g/dl RDW Std Deviation 41.7 (36.4-46.3) fL Plt Count 281 (182-369) K/mm3 MPV 9.5 (9.4-12.3) fl Neut % (Auto) 67.6 (34.0-71.1) % Lymph % (Auto) 24.5 (19.3-51.7) % [place] % (Auto) 7.3 (4.7-12.5) % Eos % (Auto) 0.2 L (0.7-5.8) Baso % (Auto) 0.3 (0.1-1.2) % Neut # (Auto) 6.01 (1.56-6.13) K/mm3 Lymph # (Auto) 2.18 (1.18-3.74) K/mm3 [place] # (Auto) 0.65 H (0.24-0.36) K/mm3 Eos # (Auto) 0.02 L (0.04-0.36) K/mm3 Baso # (Auto) 0.03 (0.01-0.08) K/mm3 Sodium 139 (136-145) mEq/L Potassium 3.4 L (3.5-5.1) mEq/L Chloride 103 (98-107) mEq/L Carbon Dioxide 25 (21-32) mEq/L Anion Gap 14.4 (5-15) BUN 4 L (7-18) mg/dL Creatinine 0.9 (0.55-1.02) mg/dL Est Cr Clr Drug Dosing 81.61 mL/min Estimated GFR (MDRD) > 60 (>60) mL/min BUN/Creatinine Ratio 4.4 L (14-18) Glucose 94 (74-106) mg/dL Calcium 9.5 (8.5-10.1) mg/dL Total Bilirubin 0.2 (0.2-1.0) mg/dL AST 14 L (15-37) U/L ALT 20 (14-59) U/L Alkaline Phosphatase 74 (46-116) U/L Total Protein 7.7 (6.4-8.2) g/dl Albumin 3.7 (3.4-5.0) g/dl Globulin 4.0 gm/dL Albumin/Globulin Ratio 0.9 L (1-2) Lipase 56 L (73-393) U/L HCG, Qual (NEGATIVE) Urine Color Yellow (Yellow) Urine Appearance Clear (Clear) Urine pH 7.5 (5.0-8.0) Ur Specific [place] 1.020 (1.005-1.030) Urine Protein Negative (Negative) Urine Glucose (UA) Negative (Negative) Urine Ketones Negative (Negative) Urine Occult Blood Negative (Negative) Urine Nitrite Negative (Negative) Urine Bilirubin Negative (Negative) Urine Urobilinogen 0.2 (0.2-1.0) Ur Leukocyte Esterase Negative (Negative) 06/09/20 Range/Units 22:35 WBC (3.98-10.04) K/mm3 RBC (3.98-5.22) M/mm3 Hgb (11.2-15.7) gm/dl Hct (34.1-44.9) % MCV (79.4-94.8) fl MCH (25.6-32.2) pg MCHC (32.2-35.5) g/dl RDW Std Deviation (36.4-46.3) fL Plt Count (182-369) K/mm3 MPV (9.4-12.3) fl Neut % (Auto) (34.0-71.1) % Lymph % (Auto) (19.3-51.7) % [place] % (Auto) (4.7-12.5) % Eos % (Auto) (0.7-5.8) Baso % (Auto) (0.1-1.2) % Neut # (Auto) (1.56-6.13) K/mm3 Lymph # (Auto) (1.18-3.74) K/mm3 [place] # (Auto) (0.24-0.36) K/mm3 Eos # (Auto) (0.04-0.36) K/mm3 Baso # (Auto) (0.01-0.08) K/mm3 Sodium (136-145) mEq/L Potassium (3.5-5.1) mEq/L Chloride (98-107) mEq/L Carbon Dioxide (21-32) mEq/L Anion Gap (5-15) BUN (7-18) mg/dL Creatinine (0.55-1.02) mg/dL Est Cr Clr Drug Dosing mL/min Estimated GFR (MDRD) (>60) mL/min BUN/Creatinine Ratio (14-18) Glucose (74-106) mg/dL Calcium (8.5-10.1) mg/dL Total Bilirubin (0.2-1.0) mg/dL AST (15-37) U/L ALT (14-59) U/L Alkaline Phosphatase (46-116) U/L Total Protein (6.4-8.2) g/dl Albumin (3.4-5.0) g/dl Globulin gm/dL Albumin/Globulin Ratio (1-2) Lipase (73-393) U/L HCG, Qual Negative (NEGATIVE) Urine Color (Yellow) Urine Appearance (Clear) Urine pH (5.0-8.0) Ur Specific [place] (1.005-1.030) Urine Protein (Negative) Urine Glucose (UA) (Negative) Urine Ketones (Negative) Urine Occult Blood (Negative) Urine Nitrite (Negative) Urine Bilirubin (Negative) Urine Urobilinogen (0.2-1.0) Ur Leukocyte Esterase (Negative) Meds: Medications Discontinued Medications Generic Name Dose Route Start Last Admin Trade Name Aster PRN Reason Stop Dose Admin Sodium Chloride 1,000 mls @ 999 mls/hr 06/09/20 21:06 06/09/20 22:17 Normal Saline IV 06/09/20 22:06 999 mls/hr ONETIME ONE Administration Ondansetron HCl 4 mg 06/09/20 21:06 06/09/20 22:17 Zofran IVPUSH 06/09/20 21:07 4 mg ONETIME ONE Administration - Re-Assessments/Exams Free Text/Narrative Re-Assessment/Exam: 06/10/20 00:32 Patient's laboratory evaluation is nonsuggestive of any acute process at this point. Influenza screen is negative. Repeat abdominal exam shows active bowel sounds soft less tenderness than prior however she still has some diffuse abdominal tenderness slightly worse on the right side compared to the left side no rigidity rebound or guarding. Patient still has some discomfort albeit is a little better than it was earlier. We discussed the pros and cons and the patient would like to hold off on this.. Have advised the patient no uncertain terms to return to the emergency room in 12 to 24 hours if not better sooner if getting worse the patient voices understanding with this. 06/10/20 00:34 Departure - Departure Time of Disposition: 00:33 Disposition: Home, Self-Care 01 Clinical Impression: Abdominal pain of unknown etiology - Discharge Information Referrals: Asia Griffin PA-C [Primary Care Provider] - Forms: ED Department Discharge Additional Instructions: Return to the emergency room with any questions problems or worsening symptoms. Return in 12 to 24 hours if not better return sooner if getting worse. Clear liquid diet for the next 24 hours then slowly advance as tolerated. You have been given Zofran and Aurora from the machine out in the waiting room Zofran is for nausea and vomiting the Aurora is for pain. Use the Zofran 1 every 4-6 hours as needed for nausea. Use the hydrocodone, or the Aurora 1 or 2 every 6 hours as needed for pain. You were given #10 of the Aurora and 5 of the Zofran. Use caution with the hydrocodone, or Aurora. Allow 12 hours after using this before driving or returning to work. Sepsis Event Note (ED) - Evaluation Sepsis Screening Result: No Definite Risk - Focused Exam Vital Signs: Vital Signs Temp Pulse Resp BP Pulse Ox 06/09/20 20:00 37.4 C 107 H 20 137/103 H 100 - My Orders Last 24 Hours: My Active Orders 06/09/20 21:09 Isolation [COMM] Routine - Assessment/Plan Last 24 Hours: My Active Orders 06/09/20 21:09 Isolation [COMM] Routine
[2020-06-09] MEDS ORDERED: Ondansetron 4 MG/2 ML SDV IVPUSH ONE (21:06)
[2020-06-09] MEDS ORDERED: Sodium Chloride 0.9% 1,000 ML IV ONE (21:06)
== END 2020-06-10 00:52 | disposition home or self-care (01) ==
LOC: JD.ED 19:31
DX: R10.31 Right lower quadrant pain (principal); J45.909 Unspecified asthma, uncomplicated; E11.9 Type 2 diabetes mellitus without complications; F41.9 Anxiety disorder, unspecified; F17.210 Nicotine dependence, cigarettes, uncomplicated; Z88.1 Allergy status to other antibiotic agents; Z88.0 Allergy status to penicillin; Z79.84 Long term (current) use of oral hypoglycemic drugs
CPT/HCPCS: 36415; 80053; 81003; 83690; 84703; 85025; 87804; 96374; 99284; J2405; J7030; 99283